=== PATIENT | female | born 1985 | race Caucasian/White ===

== ENCOUNTER → 2018-07-03 10:48 | Outpatient (CLI) | payer MEDICARE, MEDICAID, SELFPAY ==
--- NOTE | 2018-07-03 11:05 | DI.REPORT_ITS ---
SYMPTOM/DIAGNOSIS: NECK PAIN M54.2 CERVICAL SPINE: The disc spaces are well maintained. There is minimal spurring posteriorly at C5-6. The alignment appears normal. There is no neural foraminal narrowing. IMPRESSION: Minimal degenerative changes.
== END ==
PROVIDERS: PCP Family Medicine; Visit Provider Family Medicine
DX: M54.2 Cervicalgia (principal); M47.892 Other spondylosis, cervical region
CPT/HCPCS: 72050

== ENCOUNTER 2018-09-10 12:52 | Outpatient (CLI) | payer MEDICARE, MEDICAID, SELFPAY ==
--- NOTE | 2018-09-10 12:58 | DI.RAD_ITS ---
SYMPTOM/DIAGNOSIS: THORACIC BACK PAIN, M54.6, WORSENING RT HIP PAIN, M25.511 THORACIC SPINE: AP and lateral views. Comparison chest xray is 03/31/11. There is normal alignment of the thoracic spine. The vertebral bodies, disc spaces and posterior elements are all well maintained. The bones appear normally mineralized. The paraspinal lines are unremarkable. IMPRESSION: Negative examination. RIGHT HIP AND PELVIS: Two views. Comparison is made with 08/21/16. There are again seen post surgical changes of a left total hip replacement. The right hip is unremarkable. The bones are normally mineralized. The sacroiliac joints and symphysis pubis appear unremarkable. The soft tissues have a normal appearance. IMPRESSION: Normal right hip.
== END 2018-09-10 13:12 ==
PROVIDERS: PCP Family Medicine; Visit Provider Family Medicine
DX: M54.6 Pain in thoracic spine (principal); M25.551 Pain in right hip
CPT/HCPCS: 72072; 73502

== ENCOUNTER 2019-01-05 21:01 | Emergency (ER) | payer MEDICARE, MEDICAID, SELFPAY ==
[2019-01-05 21:08] VITALS: BP 131/82; PULSE 103; RESP 20; TEMP 37; O2SAT 100
[2019-01-05 21:18] VITALS: RESP 20
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
[2019-01-05] MEDS: Amoxicillin 500 MG CAP PO (22:01)
== END 2019-01-05 22:11 | disposition home or self-care (01) ==
PROVIDERS: Emergency Provider Emergency Medicine; PCP Family Medicine
DX: B37.0 Candidal stomatitis (principal); K04.7 Periapical abscess without sinus; J45.909 Unspecified asthma, uncomplicated; M25.551 Pain in right hip; M25.552 Pain in left hip; G89.29 Other chronic pain; F17.210 Nicotine dependence, cigarettes, uncomplicated
CPT/HCPCS: 81025; 99283; J3490

== ENCOUNTER 2019-06-08 15:04 | Emergency (ER) | payer MEDICARE, MEDICAID, SELFPAY ==
[2019-06-08 15:12] VITALS: BP 134/84; PULSE 108; RESP 18; TEMP 36.6; O2SAT 99
--- NOTE | 2019-06-08 15:24 | ED.GENADUL_ITS ---
Discharge Plan Disposition Patient Disposition: HOME Condition: Stable Discharge Details Chief Complaint: Allergic Clinical Impression: Sting, wasp Primary Care Provider: Pancho Patterson ED Provider: Hood Carson Home Meds and New Rx's Prescriptions: No Action aluminum chloride 20 % solution 1 applic TP DAILY PRNRF: 0 baclofen 10 mg tablet 10 mg PO QID RF: 0 albuterol sulfate [ProAir HFA] 90 mcg/actuation HFA aerosol inhaler 2 puff IH Q6H PRN (Reason: shortness of breath) Qty: 18 RF: 4 sertraline 25 mg tablet 25 mg PO DAILY Qty: 30 RF: 2 cyclobenzaprine 10 mg tablet 10 mg PO HS PRN (Reason: muscle spasm) Qty: 30 RF: 3 hydromorphone 2 mg tablet 2 mg PO Q6H MDD 8 mg PRN (Reason: pain) Qty: 120 RF: 0 methylphenidate HCl 20 mg tablet 20 mg PO BID MDD 40 mg Qty: 60 RF: 0 epinephrine [EpiPen] 0.3 MG/0.3 ML auto-injector 1 pen IM ONCE RF: 0 promethazine-codeine 5 ML syrup 1 - 2 tsp PO HS PRNQty: 6 RF: 0 amoxicillin 500 mg capsule 2,000 mg PO ONCE Qty: 4 RF: 0 divalproex [Depakote] 125 mg tablet,delayed release (DR/EC) 125 mg PO BID Qty: 180 RF: 4 ibuprofen 600 mg tablet 600 mg PO QID PRN (Reason: pain) Qty: 360 RF: 4 omeprazole 20 mg capsule,delayed release(DR/EC) 20 mg PO DAILY Qty: 90 RF: 2 clotrimazole 10 mg tiffany 10 mg Mucous Membrane 5X/DAY Qty: 40 RF: 0 Discharge Instructions Instructions: Insect Bite or Sting (ED) Additional Instructions: if you develop a rash that is itching take benadryl, follow dosing instructions on packaging. 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 Denies any rashes, gi or respiratory symptoms. There is no obvious puncture wound or redness where she states she was stung. She has no respiratory dsitress and is speaking in full sentences. Suspect she is not allergic to wasps. I recommended observation here but she declined as she has an epi pen at home. I advised if she develops symptoms of anaphylaxis to use her epi pen and return Differential Diagnosis bee sting, wasp sting HPI General Mode of arrival: ambulatory . Date/Time Provider Initiated Documentation: 06/08/19 15:06 . Limitations to Documentation: no limitations . Information obtained by: patient . History of Present Illness 33 year old F presents to the emergency department with the chief complaint of wasp sting, described as mild, and is localized to the face. Patient reports no radiation. Patient started experiencing this minute(s) (30) and it has been constant. No relieving factors improve symptom(s), No exacerbating factors reported . Patient did receive the following treatments prior to arrival, none Related Data Home Medications Medication Instructions Recorded Confirmed epinephrine [EpiPen] 1 pen IM ONCE 01/20/13 06/04/19 promethazine-codeine 1 - 2 tsp PO HS PRN #6 oz 05/11/18 06/04/19 aluminum chloride 20 % topical 1 applic TP DAILY PRN ml 07/25/18 06/04/19 solution baclofen 10 mg tablet 10 mg PO QID 07/25/18 06/04/19 albuterol sulfate 90 mcg/actuation 2 puff IH Q6H PRN #18 gm 07/26/18 06/04/19 aerosol inhaler sertraline 25 mg tablet 25 mg PO DAILY #30 tab 10/30/18 06/04/19 clotrimazole 10 mg MUCOUS MEMBRANE 5X/DAY #40 01/05/19 06/04/19 tab amoxicillin 500 mg capsule 2,000 mg PO ONCE #4 cap 01/29/19 06/04/19 divalproex 125 mg tablet,delayed 125 mg PO BID #180 tab 02/20/19 06/04/19 release ibuprofen 600 mg tablet 600 mg PO QID PRN #360 tab-cap 02/20/19 06/04/19 cyclobenzaprine 10 mg tablet 10 mg PO HS PRN #30 tab 03/12/19 06/04/19 omeprazole 20 mg capsule,delayed 20 mg PO DAILY #90 cap 05/24/19 06/04/19 release hydromorphone 2 mg tablet 2 mg PO Q6H PRN #120 tab MDD 8 mg 06/04/19 06/04/19 methylphenidate HCl 20 mg tablet 20 mg PO BID #60 tab-cap MDD 40 mg 06/04/19 06/04/19 Previous Rx's Medication Instructions Recorded albuterol sulfate 90 mcg/actuation 2 puff IH Q6H PRN #18 gm 07/26/18 aerosol inhaler sertraline 25 mg tablet 25 mg PO DAILY #30 tab 10/30/18 clotrimazole 10 mg MUCOUS MEMBRANE 5X/DAY #40 01/05/19 tab amoxicillin 500 mg capsule 2,000 mg PO ONCE #4 cap 01/29/19 divalproex 125 mg tablet,delayed 125 mg PO BID #180 tab 02/20/19 release ibuprofen 600 mg tablet 600 mg PO QID PRN #360 tab-cap 02/20/19 cyclobenzaprine 10 mg tablet 10 mg PO HS PRN #30 tab 03/12/19 omeprazole 20 mg capsule,delayed 20 mg PO DAILY #90 cap 05/24/19 release hydromorphone 2 mg tablet 2 mg PO Q6H PRN #120 tab MDD 8 mg 06/04/19 methylphenidate HCl 20 mg tablet 20 mg PO BID #60 tab-cap MDD 40 mg 06/04/19 Allergies Allergy/AdvReac Type Severity Reaction Status Date / Time venom-honey bee Allergy Severe HIVES Verified 06/08/19 15:14 aripiprazole [From Abilify] AdvReac Intermediate Nausea Verified 06/08/19 15:14 acetaminophen AdvReac Unknown VOMITING; Verified 06/08/19 15:14 WEIGHT LOSS meloxicam AdvReac Unknown NAUSEA/VOMI Verified 06/08/19 15:14 TING hydrocodone AdvReac NAUSEA/VOMI Verified 06/08/19 15:14 TING oxycodone AdvReac VOMITING Verified 06/08/19 15:14 General Stated Complaint: Allergic JONN: 3 Review of Systems Review of Systems All systems reviewed & are unremarkable except as noted in HPI and below Constitutional Denies chills and Denies fever(s) Cardiovascular Denies chest pain and Denies dyspnea Respiratory Denies cough and Denies dyspnea Gastrointestinal Denies abdominal pain, Denies nausea and Denies vomiting Musculoskeletal Denies joint swelling Integumentary/Breasts Denies rash [facility] Medical History (Updated 05/03/19 @ 09:55 by Noni Corbett) Anxiety disorder (Chronic 12/24/13) Attention deficit hyperactivity disorder (ADHD), combined type (Chronic 12/27/16) Chronic pain syndrome (Chronic 10/18/12) Explosive personality disorder (Chronic 08/06/15) Gastroesophageal reflux disease (Chronic) 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) Surgical History (Updated 04/30/19 @ 08:21 by Pancho Patterson MD) Arthroscopy (Inactive ~2007) History of total hip arthroplasty (Resolved) S/P carpal tunnel release (Resolved) Status post arthroscopy of hip (Resolved) Total replacement of hip (Resolved ~2006) Social History Smoking/Tobacco Use Status: Current every day Drug use: Never Household members: other Details: 2 Do you feel safe in your relationship?: Yes Exam Const General: no acute distress Orientation: alert HENMT Head: normal to inspection Ears: external ears normal General nose exam: external nose normal Mouth: moist mucous membranes Eyes General: appearance normal, both eyes and all related structures Neck Neck: normal visual inspection Resp Effort & Inspection: normal respiratory effort and able to speak in complete sentences Cardio Rate: regular rate Skin General skin exam: no rashes or lesions noted Neuro General: alert and oriented x3 Extrem General: normal to inspection Psych Mental Status: mental status grossly normal Course Vital Signs Temperature 36.6 C 06/08/19 15:12 Pulse 108 H 06/08/19 15:12 Respiratory Rate 18 06/08/19 15:12 Blood Pressure 134/84 06/08/19 15:12 Pulse Oximetry 99 06/08/19 15:12 Temperature 36.6 C 06/08/19 15:12 Temperature Source Temporal Artery Scan 06/08/19 15:12 Pulse 108 H 06/08/19 15:12 Respiratory Rate 18 06/08/19 15:12 Respiratory Effort 06/08/19 15:20 Respiratory Pattern Normal 06/08/19 15:20 Blood Pressure 134/84 06/08/19 15:12 Blood Pressure Position Sitting 06/08/19 15:12 Pulse Oximetry 99 06/08/19 15:12 Oxygen Delivery Method Room Air 06/08/19 15:12 Oxygen Flow Rate 0 06/08/19 15:12
[2019-06-08 15:25] VITALS: BP 108/72; PULSE 89; RESP 16; TEMP 36.6; O2SAT 97
== END 2019-06-08 15:25 | disposition home or self-care (01) ==
LOC: ER 15:25
PROVIDERS: Emergency Provider Emergency Medicine; PCP Family Medicine
DX: T63.461A Toxic effect of venom of wasps, accidental (unintentional), initial encounter (principal); Z91.038 Other insect allergy status
CPT/HCPCS: 99282

== ENCOUNTER 2020-01-28 11:32 | Outpatient (CLI) | payer MEDICARE, MEDICAID, SELFPAY ==
--- NOTE | 2020-01-28 14:15 | DI.RAD_ITS ---
EXAM: XR FINGER LT RING EXAM DATE/TIME: 01/28/2020 1412 CLINICAL HISTORY: LEFT RING FINGER UNSPECIFIED INJURY, S69.90XA. TECHNIQUE: 2D digital imaging was performed. COMPARISON: None. FINDINGS: BONES: No acute fracture is present. No bony destructive lesion is seen. JOINTS: No dislocation present. SOFT TISSUE: Normal. IMPRESSION: No evidence of acute fracture, dislocation, or subluxation. DATA REPOSITORY: RADIATION DOSE DELIVERED:
== END 2020-01-28 11:52 ==
PROVIDERS: PCP Family Medicine; Visit Provider Family Medicine
DX: S69.92XA Unspecified injury of left wrist, hand and finger(s), initial encounter (principal); M79.645 Pain in left finger(s)
CPT/HCPCS: 73140

== ENCOUNTER 2020-02-09 10:43 | Emergency (ER) | payer MEDICARE, MEDICAID, SELFPAY ==
[2020-02-09 11:11] VITALS: BP 151/92; PULSE 109; O2SAT 98
[2020-02-09 11:49] LABS: Bilirubin Negative (Negative); Blood Moderate (Negative); Clarity Clear (Clear); Glucose Negative (Negative); Ketones Negative (Negative); Leukocyte Esterase Negative (Negative); Nitrite Negative (Negative); Specific Gravity 1.015 (1.005-1.025); Urobilinogen 0.2 EU/dL (Up TO 0.2)
[2020-02-09 11:59] LABS: Bacteria Few HPF (Negative); C & S Indicated? No/Sq. Contamination; Casts Negative LPF (Negative); Crystals Negative HPF (Negative); Epithelial Cells Moderate HPF (Negative); Mucus Negative (Negative); Other Cells Few Renal (Negative)
[2020-02-09 12:00] LABS: Abs Immature Grans 0.01 k/cumm (0.0-0.09); Absolute Basophil Count 0.02 k/cumm (0.0-0.2); Absolute Monocyte Count 0.42 k/cumm (0.11-0.7); Absolute Neutrophil Count 3.06 k/cumm (1.2-6.7); Basophils % 0.4; HCT 37.1 % (36.0-46.0); HGB 12.7 g/dL (12.0-15.5); Immature Grans % 0.2 %; Lymphocytes % 29.4; Mean Corp. HGB Concentration 34.2 g/dL (32.0-36.0); Mean Corpuscular Hemoglobin 31.8 pg (27.0-33.0); Monocytes % 8.2; Neutrophils % 59.8; Platelet Count 347 x1000/uL (130-400); RBC 3.99 m/cumm (4.00-5.20); RBC Distribution Width 12.9 % (11.7-14.6); White Blood Cell Count 5.11 k/cumm (4.4-10.8)
[2020-02-09 12:13] VITALS: BP 137/51; PULSE 82; RESP 18; O2SAT 100
[2020-02-09 12:16] LABS: ALT 21 U/L (14-59); AST 14 U/L (15-37); Alkaline Phosphatase 60 U/L (46-116); BUN 8 mg/dL (7-18); Bilirubin, Total 0.4 mg/dL (0.2-1.0); CREATININE 0.76 mg/dL (0.55-1.02); Calcium 10.2 mg/dL (8.5-10.1); Chloride 108 mmol/L (98-107); Glucose 95 mg/dL (74-106); Lipase 136 U/L (73-393); Sodium 144 mmol/L (136-145); Total Protein 7.4 g/dL (6.4-8.2)
--- NOTE | 2020-02-09 12:50 | ED.GENADUL_ITS ---
Discharge Plan Disposition Patient Disposition: HOME Condition: Stable Discharge Details Chief Complaint: Abd Prob Clinical Impression: Abdominal pain Primary Care Provider: Pancho Patterson ED Provider: Fermín Mondragon Home Meds and New Rx's Prescriptions: No Action aluminum chloride 20 % solution 1 applic TP DAILY PRNRF: 0 albuterol sulfate [ProAir HFA] 90 mcg/actuation HFA aerosol inhaler 2 puff IH Q6H PRN (Reason: shortness of breath) Qty: 18 RF: 4 divalproex [Depakote] 125 mg tablet,delayed release (DR/EC) 250 mg PO DAILY Qty: 180 RF: 4 hydromorphone 2 mg tablet 2 mg PO Q6H MDD 8 mg PRN (Reason: pain) Qty: 120 RF: 0 methylphenidate HCl 20 mg tablet 20 mg PO BID MDD 40 mg Qty: 60 RF: 0 baclofen 10 mg tablet 10 mg PO QID Qty: 120 RF: 3 ondansetron 4 mg tablet,disintegrating 4 mg PO Q8H PRN (Reason: nausea and vomiting) Qty: 20 RF: 1 hydroxyzine HCl 25 mg tablet 25 mg PO TID PRN (Reason: itching) Qty: 60 RF: 3 triamcinolone acetonide 0.1 % cream 1 applic TP BID Qty: 30 RF: 3 epinephrine [EpiPen] 0.3 MG/0.3 ML auto-injector 1 pen IM ONCE RF: 0 promethazine-codeine 5 ML syrup 1 - 2 tsp PO HS PRNQty: 6 RF: 0 amoxicillin 500 mg capsule 2,000 mg PO ONCE Qty: 4 RF: 0 ibuprofen 600 mg tablet 600 mg PO QID PRN (Reason: pain) Qty: 360 RF: 4 omeprazole 20 mg capsule,delayed release(DR/EC) 20 mg PO DAILY Qty: 90 RF: 2 cyclobenzaprine 10 mg tablet 10 mg PO HS PRN (Reason: muscle spasm) Qty: 30 RF: 3 clotrimazole 10 mg tiffany 10 mg Mucous Membrane 5X/DAY Qty: 40 RF: 0 Discharge Instructions Instructions: Abdominal Pain (ED) Additional Instructions: At this time your routine laboratory values are unremarkable for obvious emergent process. CT imaging was offered but at this time declined. You would rather be discharged home, watch her symptoms carefully, and return to the ER for new or evolving symptoms. Otherwise I recommend contacting your primary care provider tomorrow for prompt outpatient reevaluation, outpatient imaging could be ordered if indicated. Discharge Data Discharge Date/Time-TO BE ENTERED AT DEPARTURE: 02/09/20 13:00 Medical Decision Making 34-year-old female presents to the ER today reporting epigastric discomfort that was present upon waking yesterday, now the pain is more so on the right side. She reports that she felt as though she got out of bed awkwardly in a twisting fashion causing the pain in the first place. She does have a positive Carnett sign. Denies fever, change of appetite, nausea, vomiting. She appears well, no ntoxic and has a nonsurgical abdominal examination. She is specifically asking about her appendix. Given her evaluation I have an extremely low suspicion for appendicitis. Will obtain routine laboratory values and reassess Laboratory values unremarkable. Upon reevaluation patient is resting comfortably. We discussed her laboratory values and further work-up. Again, she brought up the possibility of appendicitis. I explained to her that I did believe appendicitis was very unlikely but we discussed signs and symptoms to watch for. I explained to her that we could obtain a CT at this time for further evaluation however patient declines. She specifically asked me how long that would take. Based upon our current ER volume I suggested to CT may take an hour or so and by the time I had the results it may be roughly 2 hours. Patient reports that she does not want to wait that long and will return to the ER for new or evolving symptoms. Based upon her evaluation today I believe this to be perfectly reasonable. She was encouraged to contact her primary care provider tomorrow as well. Medical Records Medical records reviewed: Yes I reviewed the patient's medical records. Lab Data Lab results reviewed: Yes I reviewed the patient's lab results. Lab results narrative: Laboratory Tests Range/Units 02/09/20 02/09/20 02/09/20 11:27 11:50 11:50 WBC (4.4-10.8) k/cumm 5.11 RBC (4.00-5.20) m/cumm 3.99 L Hgb (12.0-15.5) g/dL 12.7 Hct (36.0-46.0) % 37.1 MCV (80-95) fL 93.0 MCH (27.0-33.0) pg 31.8 MCHC (32.0-36.0) g/dL 34.2 RDW (11.7-14.6) % 12.9 Plt Count (130-400) x1000/uL 347 MPV (8.0-11.0) fL 10.0 Immature Gran % % 0.2 Neutrophils % 59.8 Lymphocytes % 29.4 Monocytes % 8.2 Eosinophils % 2.0 Basophils % 0.4 Absolute Neutrophils (1.2-6.7) k/cumm 3.06 Absolute Lymphocytes (1.2-3.4) k/cumm 1.50 Absolute Monocytes (0.11-0.7) k/cumm 0.42 Absolute Eosinophils (0.0-0.7) k/cumm 0.10 Absolute Basophils (0.0-0.2) k/cumm 0.02 Sodium (136-145) mmol/L 144 Potassium (3.5-5.1) mmol/L 4.0 Chloride (98-107) mmol/L 108 H Carbon Dioxide (21.0-32.0) mmol/L 28.0 Anion Gap (3-11) mmol/L 8.0 BUN (7-18) mg/dL 8 Creatinine (0.55-1.02) mg/dL 0.76 Estimated GFR/1.73 m2 (mL/min/1.73m2) >= 60.00 Glucose (74-106) mg/dL 95 Calcium (8.5-10.1) mg/dL 10.2 H Total Bilirubin (0.2-1.0) mg/dL 0.4 AST (15-37) U/L 14 L ALT (14-59) U/L 21 Alkaline Phosphatase (46-116) U/L 60 Total Protein (6.4-8.2) g/dL 7.4 Albumin (3.4-5.0) g/dL 4.0 Lipase (73-393) U/L 136 Urine Color (Yellow) Yellow Urine Clarity (Clear) Clear Urine pH (5-8) 7.0 Ur Specific [place] (1.005-1.025) 1.015 Urine Protein (Negative) mg/dL Negative Urine Ketones (Negative) mg/dL Negative Urine Blood (Negative) Moderate H Urine Nitrite (Negative) Negative Urine Bilirubin (Negative) Negative Urine Urobilinogen (Up TO 0.2) EU/dL 0.2 Ur Leukocyte Esterase (Negative) Negative Urine RBC (0-2) HPF 3-5 H Urine WBC (0-5) HPF 3-5 Ur Epithelial Cells (Negative) HPF Moderate Urine Crystals (Negative) HPF Negative Urine Bacteria (Negative) HPF Few Urine Casts (Negative) LPF Negative Urine Mucus (Negative) Negative Urine Other (Negative) Few renal Ur Culture Indicated? No/sq. contamination Urine Glucose (Negative) mg/dL Negative HPI General Mode of arrival: ambulatory . Date/Time Provider Initiated Documentation: 02/09/20 11:34 . Limitations to Documentation: no limitations . Information obtained by: patient . HPI Narrative: This is a 34-year-old female with history of anxiety, ADHD, chronic pain syndrome, GERD, juvenile osteochondrosis, scoliosis, microcephalus, presents to the ER today with abdominal pain that began yesterday. She reports that initially she thought that she may have gotten out of bed awkwardly in a twisting fashion pulling a muscle but as the day went on she realized that the pain was in her epigastric region and today it is more on her right side. She reports that the pain is worse with movement or engaging her core. She denies recent illness or trauma. Denies fever, sore throat, cough, chest pain, shortness of breath, nausea, vomiting, diarrhea, constipation, dysuria or hematuria. She reports that she is just finishing up her current menstrual cycle. She denies any vaginal discharge. Denies change of appetite. She contacted her primary care provider who recommended being evaluated. Related Data Home Medications Medication Instructions Recorded Confirmed epinephrine [EpiPen] 1 pen IM ONCE 01/20/13 02/09/20 promethazine-codeine 1 - 2 tsp PO HS PRN #6 oz 05/11/18 02/09/20 aluminum chloride 20 % topical 1 applic TP DAILY PRN ml 07/25/18 02/09/20 solution albuterol sulfate 90 mcg/actuation 2 puff IH Q6H PRN #18 gm 07/26/18 02/09/20 aerosol inhaler clotrimazole 10 mg MUCOUS MEMBRANE 5X/DAY #40 01/05/19 02/09/20 tab amoxicillin 500 mg capsule 2,000 mg PO ONCE #4 cap 01/29/19 02/09/20 ibuprofen 600 mg tablet 600 mg PO QID PRN #360 tab-cap 02/20/19 02/09/20 omeprazole 20 mg capsule,delayed 20 mg PO DAILY #90 cap 05/24/19 02/09/20 release ondansetron 4 mg disintegrating 4 mg PO Q8H PRN #20 tab 10/03/19 02/09/20 tablet divalproex 125 mg tablet,delayed 250 mg PO DAILY #180 tab 11/01/19 02/09/20 release cyclobenzaprine 10 mg tablet 10 mg PO HS PRN #30 tab 11/28/19 02/09/20 hydroxyzine HCl 25 mg tablet 25 mg PO TID PRN #60 tab 01/03/20 02/09/20 triamcinolone acetonide 0.1 % 1 applic TP BID #30 gm 01/03/20 02/09/20 topical cream baclofen 10 mg tablet 10 mg PO QID #120 tab 01/31/20 02/09/20 hydromorphone 2 mg tablet 2 mg PO Q6H PRN #120 tab MDD 8 mg 01/31/20 02/09/20 methylphenidate HCl 20 mg tablet 20 mg PO BID #60 tab-cap MDD 40 mg 01/31/20 02/09/20 Previous Rx's Medication Instructions Recorded albuterol sulfate 90 mcg/actuation 2 puff IH Q6H PRN #18 gm 07/26/18 aerosol inhaler clotrimazole 10 mg MUCOUS MEMBRANE 5X/DAY #40 01/05/19 tab amoxicillin 500 mg capsule 2,000 mg PO ONCE #4 cap 01/29/19 ibuprofen 600 mg tablet 600 mg PO QID PRN #360 tab-cap 02/20/19 omeprazole 20 mg capsule,delayed 20 mg PO DAILY #90 cap 05/24/19 release ondansetron 4 mg disintegrating 4 mg PO Q8H PRN #20 tab 10/03/19 tablet divalproex 125 mg tablet,delayed 250 mg PO DAILY #180 tab 11/01/19 release cyclobenzaprine 10 mg tablet 10 mg PO HS PRN #30 tab 11/28/19 hydroxyzine HCl 25 mg tablet 25 mg PO TID PRN #60 tab 01/03/20 triamcinolone acetonide 0.1 % 1 applic TP BID #30 gm 01/03/20 topical cream baclofen 10 mg tablet 10 mg PO QID #120 tab 01/31/20 hydromorphone 2 mg tablet 2 mg PO Q6H PRN #120 tab MDD 8 mg 01/31/20 methylphenidate HCl 20 mg tablet 20 mg PO BID #60 tab-cap MDD 40 mg 01/31/20 Allergies Allergy/AdvReac Type Severity Reaction Status Date / Time venom-honey bee Allergy Severe HIVES Verified 02/09/20 11:16 aripiprazole [From [facility]] AdvReac Intermediate Nausea Verified 02/09/20 11:16 acetaminophen AdvReac Unknown VOMITING; Verified 02/09/20 11:16 WEIGHT LOSS meloxicam AdvReac Unknown NAUSEA/VOMI Verified 02/09/20 11:16 TING hydrocodone AdvReac NAUSEA/VOMI Verified 02/09/20 11:16 TING oxycodone AdvReac VOMITING Verified 02/09/20 11:16 General Stated Complaint: Abd Prob JONN: 3 Review of Systems Constitutional Constitutional: Denies fatigue, Denies fever(s), Denies headache(s) and Denies weakness Eyes Eyes: Denies eye discharge ENT Ears, Nose, Mouth, and Throat: Denies headache(s) and Denies sore throat Cardiovascular Cardiovascular: Denies chest pain and Denies dyspnea Respiratory Respiratory: Denies cough and Denies dyspnea Gastrointestinal Gastrointestinal: Reports abdominal pain, Denies diarrhea, Denies nausea and Denies vomiting Genitourinary Genitourinary: Denies hematuria, Denies dysuria and Denies vaginal discharge Musculoskeletal Musculoskeletal: Reports back pain (Chronic), Denies numbness and Denies tingling Integumentary/Breasts Skin/Breast: Denies rash Neurologic Neurologic: Denies headache(s), Denies numbness, Denies tingling and Denies weakness Endocrine Endocrine: Denies fatigue [facility] Medical History (Updated 02/09/20 @ 12:52 by RAMOS Moralez) Anxiety disorder (Chronic 12/24/13) Attention deficit hyperactivity disorder (ADHD), combined type (Chronic 12/27/16) Chronic pain syndrome (Chronic 10/18/12) Explosive personality disorder (Chronic Unknown) Gastroesophageal reflux disease (Chronic) 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) S/P left hip replacement Surgical History (Updated 04/30/19 @ 08:21 by Pancho Patterson MD) Arthroscopy (Inactive ~2007) right hip History of total hip arthroplasty (Resolved) S/P carpal tunnel release (Resolved) Status post arthroscopy of hip (Resolved) Total replacement of hip (Resolved ~2006) left Social History Smoking/Tobacco Use Status: Current every day Tobacco Type: e-cigarettes Alcohol Intake: never Drug use: Never Substance use type: does not use Household members: other Details: 2 Do you feel safe at home: Yes Do you feel safe in your relationship?: Yes Exam Const General: cooperative, healthy appearing, comfortable and no acute distress Orientation: alert and awake HENMT Head: normal to inspection, normocephalic and atraumatic Mouth: moist mucous membranes Throat: posterior oropharynx normal Eyes Conjunctivae: conjunctivae normal Neck Neck: normal visual inspection, trachea midline and supple Resp Effort & Inspection: normal respiratory effort and able to speak in complete sentences Auscultation: clear to auscultation bilaterally Cardio Rate: regular rate Rhythm: regular rhythm GI Inspection: normal to inspection and other (Positive Carnett sign) Palpation: soft, not firm, no guarding, not rigid and nontender Auscultation: normal bowel sounds Back/Spine/Pelvis Back: No back tenderness Skin General skin exam: no rashes or lesions noted Neuro General: patient alert, patient awake, moves all extremities and no focal motor deficits Sensory Exam: no sensory deficits noted Psych Appearance: grossly normal Mental Status: mental status grossly normal Course Vital Signs Vital signs: Vital Signs Pulse 109 H 02/09/20 11:11 Blood Pressure 151/92 H 02/09/20 11:11 Pulse Oximetry 98 02/09/20 11:11 Pulse 82 02/09/20 12:13 Respiratory Rate 18 02/09/20 12:13 Respiratory Effort Non-Labored 02/09/20 11:14 Blood Pressure 137/51 L 02/09/20 12:13 Blood Pressure Position Sitting 02/09/20 11:11 Pulse Oximetry 100 02/09/20 12:13 Oxygen Delivery Method Room Air 02/09/20 12:13 Oxygen Flow Rate 0 02/09/20 12:13 Pain Level 5 02/09/20 12:13 Lab/Test Results Lab/Test Results: Laboratory Tests Range/Units 03/02/09/20 02/09/20 11:27 11:50 11:50 WBC (4.4-10.8) k/cumm 5.11 RBC (4.00-5.20) m/cumm 3.99 L Hgb (12.0-15.5) g/dL 12.7 Hct (36.0-46.0) % 37.1 MCV (80-95) fL 93.0 MCH (27.0-33.0) pg 31.8 MCHC (32.0-36.0) g/dL 34.2 RDW (11.7-14.6) % 12.9 Plt Count (130-400) x1000/uL 347 MPV (8.0-11.0) fL 10.0 Immature Gran % % 0.2 Neutrophils % 59.8 Lymphocytes % 29.4 Monocytes % 8.2 Eosinophils % 2.0 Basophils % 0.4 Absolute Neutrophils (1.2-6.7) k/cumm 3.06 Absolute Lymphocytes (1.2-3.4) k/cumm 1.50 Absolute Monocytes (0.11-0.7) k/cumm 0.42 Absolute Eosinophils (0.0-0.7) k/cumm 0.10 Absolute Basophils (0.0-0.2) k/cumm 0.02 Sodium (136-145) mmol/L 144 Potassium (3.5-5.1) mmol/L 4.0 Chloride (98-107) mmol/L 108 H Carbon Dioxide (21.0-32.0) mmol/L 28.0 Anion Gap (3-11) mmol/L 8.0 BUN (7-18) mg/dL 8 Creatinine (0.55-1.02) mg/dL 0.76 Estimated GFR/1.73 m2 (mL/min/1.73m2) >= 60.00 Glucose (74-106) mg/dL 95 Calcium (8.5-10.1) mg/dL 10.2 H Total Bilirubin (0.2-1.0) mg/dL 0.4 AST (15-37) U/L 14 L ALT (14-59) U/L 21 Alkaline Phosphatase (46-116) U/L 60 Total Protein (6.4-8.2) g/dL 7.4 Albumin (3.4-5.0) g/dL 4.0 Lipase (73-393) U/L 136 Urine Color (Yellow) Yellow Urine Clarity (Clear) Clear Urine pH (5-8) 7.0 Ur Specific [place] (1.005-1.025) 1.015 Urine Protein (Negative) mg/dL Negative Urine Ketones (Negative) mg/dL Negative Urine Blood (Negative) Moderate H Urine Nitrite (Negative) Negative Urine Bilirubin (Negative) Negative Urine Urobilinogen (Up TO 0.2) EU/dL 0.2 Ur Leukocyte Esterase (Negative) Negative Urine RBC (0-2) HPF 3-5 H Urine WBC (0-5) HPF 3-5 Ur Epithelial Cells (Negative) HPF Moderate Urine Crystals (Negative) HPF Negative Urine Bacteria (Negative) HPF Few Urine Casts (Negative) LPF Negative Urine Mucus (Negative) Negative Urine Other (Negative) Few renal Ur Culture Indicated? No/sq. contamination Urine Glucose (Negative) mg/dL Negative POC- Test(urine) Negative
[2020-02-09 12:58] VITALS: BP 137/51; PULSE 82; RESP 18; O2SAT 100
== END 2020-02-09 13:00 | disposition home or self-care (01) ==
PROVIDERS: Emergency Provider Physician Assistant; PCP Family Medicine
DX: R10.13 Epigastric pain (principal)
CPT/HCPCS: 36415; 80053; 81025; 83690; 99283; 81003; 81015; 85025; 99284

== ENCOUNTER 2020-03-26 00:59 | Outpatient (CLI) | payer MEDICARE, MEDICAID, SELFPAY ==
--- NOTE | 2020-03-26 07:00 | DI.RAD_ITS ---
EXAM: XR HAND RT COMPLETE CLINICAL HISTORY: Injury and swelling right hand,S69.91XA TECHNIQUE: COMPARISON: CR XR FINGER LT RING from 01/28/2020 FINDINGS: Three views were obtained. No fracture is seen. IMPRESSION:
== END 2020-03-26 01:19 ==
PROVIDERS: PCP Family Medicine; Visit Provider Family Medicine
DX: M79.641 Pain in right hand (principal); S69.91XA Unspecified injury of right wrist, hand and finger(s), initial encounter; M79.89 Other specified soft tissue disorders
CPT/HCPCS: 73130

== ENCOUNTER 2021-04-30 15:44 | Emergency (ER) | payer MEDICARE, MEDICAID, SELFPAY | END 2021-04-30 16:55 | LOC: ER 18:10 | PROVIDERS: PCP Nurse Practitioner Family | DX: Z53.29 Procedure and treatment not carried out because of patient's decision for other reasons (principal) ==

== ENCOUNTER 2021-07-06 08:26 | Emergency (ER) | payer MEDICARE, MEDICAID, SELFPAY ==
[2021-07-06 08:50] VITALS: BP 114/66; PULSE 99; RESP 16; O2SAT 100
--- NOTE | 2021-07-06 08:56 | ED.GENADUL_ITS ---
Discharge Plan Disposition Patient Disposition: HOME Condition: Improving Discharge Details Clinical Impression: Laceration of left upper extremity Primary Care Provider: Harley Miller ED Provider: Jonathon Valera Home Meds and New Rx's Prescriptions: New cephalexin 500 mg tablet 500 mg PO TID 5 Days Qty: 15 RF: 0 Continued aluminum chloride 20 % solution 1 applic TP DAILY PRNRF: 0 propranolol 10 mg tablet 10 mg PO BID Qty: 90 RF: 5 fluconazole [Diflucan] 40 mg/mL suspension for reconstitution 50 mg PO BID Qty: 35 RF: 0 hydroxyzine HCl 25 mg tablet 25 mg PO TID PRN (Reason: itching) Qty: 60 RF: 3 triamcinolone acetonide 0.1 % cream 1 applic TP BID Qty: 30 RF: 3 ondansetron 4 mg tablet,disintegrating 4 mg PO Q8H PRN (Reason: nausea and vomiting) Qty: 30 RF: 4 albuterol sulfate [ProAir HFA] 90 mcg/actuation HFA aerosol inhaler 2 puff IH Q6H PRN (Reason: shortness of breath) Qty: 18 RF: 4 ibuprofen 600 mg tablet 600 mg PO QID PRN (Reason: pain) Qty: 360 RF: 4 epinephrine [EpiPen] 0.3 MG/0.3 ML auto-injector 1 pen IM ONCE RF: 0 promethazine-codeine 5 ML syrup 1 - 2 tsp PO HS PRNQty: 6 RF: 0 cyclobenzaprine 10 mg tablet 10 mg PO HS PRN (Reason: muscle spasm) Qty: 30 RF: 3 (DME) Soft Cervical Collar small Qty: 1 RF: 0 omeprazole 20 mg capsule,delayed release(DR/EC) 20 mg PO DAILY Qty: 90 RF: 4 amoxicillin 500 mg capsule 2,000 mg PO ONCE Qty: 4 RF: 0 divalproex [Depakote] 125 mg tablet,delayed release (DR/EC) 250 mg PO DAILY Qty: 180 RF: 4 baclofen 10 mg tablet 10 mg PO QID Qty: 120 RF: 3 hydromorphone 2 mg tablet 2 mg PO Q6H MDD 8 mg PRN (Reason: pain) Qty: 120 RF: 0 methylphenidate HCl 20 mg tablet 20 mg PO BID MDD 40 mg Qty: 60 RF: 0 Discharge Instructions Instructions: Laceration (ED) Additional Instructions: Leave the Steri-Strips intact and in place for approximately 5 to 10 days, they will likely begin to curl and need to be removed around day 7. Take antibiotics as prescribed. Return to the emergency department for any acute concerns. Avoid swimming in ponds or streams until healed. Medical Decision Making 35-year-old female presents with laceration to her left AC fossa from a scratch of the dog's path. Tetanus is up-to-date. She has a superficial laceration, no underlying exposed tissue. No motor, sensory injury. Discussed with her options for repair, anesthetized with let, liberally irrigated, closed with Steri-Strips. Will place her empirically on 5 days of Keflex. She is stable and appropriate for discharge to home. HPI General Mode of arrival: ambulatory . Date/Time Provider Initiated Documentation: 07/06/21 08:31 . Limitations to Documentation: no limitations . Information obtained by: patient . History of Present Illness 35 year old F presents to the emergency department with the chief complaint of Scratch by dog and left arm laceration, described as mild, Quality is described as dull and constant, and is localized to the left and upper extremity. Patient reports no radiation. Patient started experiencing this minute(s) and it has been constant. No relieving factors improve symptom(s), No exacerbating factors reported . Patient did receive the following treatments prior to arrival, none and other (Tetanus up-to-date, otherwise she has been well.) Related Data Home Medications Medication Instructions Recorded Confirmed epinephrine [EpiPen] 1 pen IM ONCE 01/20/13 04/01/21 promethazine-codeine 1 - 2 tsp PO HS PRN #6 oz 05/11/18 04/01/21 aluminum chloride 20 % topical 1 applic TP DAILY PRN ml 07/25/18 04/01/21 solution hydroxyzine HCl 25 mg tablet 25 mg PO TID PRN #60 tab 01/03/20 04/01/21 triamcinolone acetonide 0.1 % 1 applic TP BID #30 gm 01/03/20 04/01/21 topical cream cyclobenzaprine 10 mg tablet 10 mg PO HS PRN #30 tab 02/27/20 04/01/21 albuterol sulfate 90 mcg/actuation 2 puff IH Q6H PRN #18 gm 04/23/20 04/01/21 aerosol inhaler ondansetron 4 mg disintegrating 4 mg PO Q8H PRN #30 tab 04/23/20 04/01/21 tablet Soft Cervical Collar #1 ea 05/22/20 04/01/21 propranolol 10 mg tablet 10 mg PO BID #90 tab 12/23/20 04/01/21 fluconazole 40 mg/mL oral 50 mg PO BID #35 ml 01/20/21 04/01/21 suspension omeprazole 20 mg capsule,delayed 20 mg PO DAILY #90 cap 02/03/21 04/01/21 release ibuprofen 600 mg tablet 600 mg PO QID PRN #360 tab-cap 02/19/21 04/01/21 amoxicillin 500 mg capsule 2,000 mg PO ONCE #4 cap 03/05/21 04/01/21 divalproex 125 mg tablet,delayed 250 mg PO DAILY #180 tab 03/12/21 04/01/21 release baclofen 10 mg tablet 10 mg PO QID #120 tab 04/20/21 hydromorphone 2 mg tablet 2 mg PO Q6H PRN #120 tab MDD 8 mg 06/17/21 methylphenidate HCl 20 mg tablet 20 mg PO BID #60 tab-cap MDD 40 mg 06/30/21 cephalexin 500 mg PO TID 5 Days #15 tab 07/06/21 Previous Rx's Medication Instructions Recorded hydroxyzine HCl 25 mg tablet 25 mg PO TID PRN #60 tab 01/03/20 triamcinolone acetonide 0.1 % 1 applic TP BID #30 gm 01/03/20 topical cream cyclobenzaprine 10 mg tablet 10 mg PO HS PRN #30 tab 02/27/20 albuterol sulfate 90 mcg/actuation 2 puff IH Q6H PRN #18 gm 04/23/20 aerosol inhaler ondansetron 4 mg disintegrating 4 mg PO Q8H PRN #30 tab 04/23/20 tablet Soft Cervical Collar #1 ea 05/22/20 propranolol 10 mg tablet 10 mg PO BID #90 tab 12/23/20 fluconazole 40 mg/mL oral 50 mg PO BID #35 ml 01/20/21 suspension omeprazole 20 mg capsule,delayed 20 mg PO DAILY #90 cap 02/03/21 release ibuprofen 600 mg tablet 600 mg PO QID PRN #360 tab-cap 02/19/21 amoxicillin 500 mg capsule 2,000 mg PO ONCE #4 cap 03/05/21 divalproex 125 mg tablet,delayed 250 mg PO DAILY #180 tab 03/12/21 release baclofen 10 mg tablet 10 mg PO QID #120 tab 04/20/21 hydromorphone 2 mg tablet 2 mg PO Q6H PRN #120 tab MDD 8 mg 06/17/21 methylphenidate HCl 20 mg tablet 20 mg PO BID #60 tab-cap MDD 40 mg 06/30/21 cephalexin 500 mg PO TID 5 Days #15 tab 07/06/21 Allergies Allergy/AdvReac Type Severity Reaction Status Date / Time venom-honey bee Allergy Severe HIVES Verified 07/06/21 08:56 aripiprazole [From [facility]] AdvReac Intermediate Nausea Verified 07/06/21 08:56 acetaminophen AdvReac Unknown VOMITING; Verified 07/06/21 08:56 WEIGHT LOSS meloxicam AdvReac Unknown NAUSEA/VOMI Verified 07/06/21 08:56 TING hydrocodone AdvReac NAUSEA/VOMI Verified 07/06/21 08:56 TING oxycodone AdvReac VOMITING Verified 07/06/21 08:56 General Stated Complaint: Laceration JONN: 4 Review of Systems Narrative: No other injury. 5 systems reviewed and otherwise negative [facility] Medical History Anxiety disorder (12/24/13) Attention deficit hyperactivity disorder (ADHD), combined type (12/27/16) Chronic pain syndrome (10/18/12) Explosive personality disorder (Unknown) Gastroesophageal reflux disease Juvenile osteochondrosis of hip and pelvis S/P left hip replacement Surgical History (Updated 04/30/19 @ 08:21 by Pancho Patterson MD) Arthroscopy (~2007) right hip History of total hip arthroplasty S/P carpal tunnel release Status post arthroscopy of hip Total replacement of hip (~2006) left Social History Smoking/Tobacco Use Status: Current every day Tobacco Type: e-cigarettes Smoking risk assessment performed?: Yes Alcohol Intake: never Drug use: Never Substance use type: does not use Household members: other Details: 2 Do you feel safe at home: Yes Do you feel safe in your relationship?: Yes Exam Narrative Exam Narrative: GEN: awake, alert, oriented 3. Pleasant, well groomed, interactive. HEAD: Normocephalic, atraumatic EXT: Full ROM, no edema, left AC with superficial laceration measuring approximately 4 cm that just penetrates through the dermis. Normal sensation, no exposed tissue underneath, no foreign body. Distal pulse, motor, sensation normal. Neuro: Grossly normal neurologic exam, conversant, interactive. Psych: Speech fluent, thoughts congruent, affect normal Course Vital Signs Vital signs: Vital Signs Pulse 99 H 07/06/21 08:50 Respiratory Rate 16 07/06/21 08:50 Blood Pressure 114/66 07/06/21 08:50 Pulse Oximetry 100 07/06/21 08:50 Pulse 99 H 07/06/21 08:50 Respiratory Rate 16 07/06/21 08:50 Blood Pressure 114/66 07/06/21 08:50 Blood Pressure Position Supine 07/06/21 08:50 Pulse Oximetry 100 07/06/21 08:50 Oxygen Delivery Method Room Air 07/06/21 08:50 Oxygen Flow Rate 0 07/06/21 08:50 Pain Level 5 07/06/21 08:50
[2021-07-06] MEDS: Lidocaine/Epinephri/Tetracaine Topical Gel 3 ML TP (08:57)
== END 2021-07-06 09:23 | disposition home or self-care (01) ==
PROVIDERS: Emergency Provider Emergency Medicine; PCP Nurse Practitioner Family
DX: S51.812A Laceration without foreign body of left forearm, initial encounter (principal); W54.1XXA Struck by dog, initial encounter
CPT/HCPCS: 99283

== ENCOUNTER 2021-07-27 01:47 | Outpatient (CLI) | payer MEDICARE, MEDICAID, SELFPAY ==
--- NOTE | 2021-07-27 08:30 | DI.RAD_ITS ---
Exam(s) XR CERVICAL SPINE COMP 4-5V EXAM: XR CERVICAL SPINE COMP 4-5V CLINICAL HISTORY: NECK PAIN, M54.2. TECHNIQUE: 2D digital imaging was performed. COMPARISON: No exams were available for comparison FINDINGS: BONES: No fracture or destructive lesion. Vertebral bodies are unremarkable. DISKS: There is mild narrowing of the C5-6 disc space and small endplate osteophytes. There is mild right neural foraminal encroachment at this level. The remaining intervertebral disc spaces are main tained. There are mild facet joint degenerative changes greatest at C6-7 and C7-T1. ALIGNMENT: Cervical spinal alignment is within normal limits. The odontoid and atlantoaxial articulat ions are normal. SOFT TISSUE: Normal. The lung apices are clear. IMPRESSION: Degenerative disc changes at C5-6 causes mild right neural foraminal narrowing. DATA REPOSITORY: RADIATION DOSE DELIVERED:
== END 2021-07-27 02:07 ==
PROVIDERS: PCP Nurse Practitioner Family; Visit Provider Nurse Practitioner Family
DX: M50.322 Other cervical disc degeneration at C5-C6 level (principal); M48.02 Spinal stenosis, cervical region
CPT/HCPCS: 72050

== ENCOUNTER 2021-12-07 04:15 | Outpatient (CLI) | payer MEDICARE, MEDICAID, SELFPAY ==
[2021-12-07 14:13] LABS: ALT 21 U/L (14-59); AST 11 U/L (15-37); Albumin 3.8 g/dL (3.4-5.0); Alkaline Phosphatase 49 U/L (46-116); Anion Gap 11.1 mmol/L (3-11); BUN 9 mg/dL (7-18); Bilirubin, Total 0.4 mg/dL (0.2-1.0); CO2 23.9 mmol/L (21.0-32.0); CREATININE 0.6 mg/dL (0.55-1.02); Calcium 9.3 mg/dL (8.5-10.1); Calculated LDL 87 mg/dL (<100); Chloride 98 mmol/L (98-107); Cholesterol 159 mg/dL (<200); Glucose 83 mg/dL (74-106); HDL Cholesterol 58 mg/dL (40-60); Potassium 3.6 mmol/L (3.5-5.1); Sodium 133 mmol/L (136-145); Triglyceride 70 mg/dL (<150)
== END 2021-12-07 04:16 | disposition home or self-care (01) ==
LOC: LBO 04:15
PROVIDERS: PCP Nurse Practitioner Family; Visit Provider Nurse Practitioner Family
DX: F90.2 Attention-deficit hyperactivity disorder, combined type (principal); R00.0 Tachycardia, unspecified; Z13.220 Encounter for screening for lipoid disorders
CPT/HCPCS: 36415; 80053; 80061; 83036

== ENCOUNTER 2022-02-22 03:23 | Outpatient (CLI) | payer MEDICARE, MEDICAID, SELFPAY ==
[2022-02-22 12:51] LABS: Abs Immature Grans 0.04 10^3/uL (0.0-0.06); Absolute Basophil Count 0.05 10^3/uL (0.0-0.2); Absolute Eosinophil Count 0.08 10^3/uL (0.0-0.7); Absolute Monocyte Count 0.79 10^3/uL (0.1-0.8); Basophils % 0.5; Eosinophils % 0.7; HCT 32.6 % (36.0-46.0); HGB 10.8 g/dL (11.2-15.7); Immature Grans % 0.4; Lymphocytes % 14.7; MCH 31.5 pg (27.0-33.0); MCHC 33.1 % (32.0-36.0); MPV 10.3 fL (8.0-11.0); Monocytes % 7.3; Neutrophils % 76.4; Nucleated RBC 0 %; Platelet Count 305 10^3/uL (130-400); RBC 3.43 10^6/uL (3.93-5.22); RDW 12.7 % (11.7-14.6); RDW-SD 43.9 fL; WBC 10.89 10^3/uL (4.4-10.8)
[2022-02-22 12:56] LABS: Absolute Neutrophil Count 8.32 10^3/uL (1.2-6.7)
[2022-02-22 13:39] LABS: TSH (W/Ref FT4) 0.42 uIU/mL (0.36-3.74)
[2022-02-23 09:36] LABS: Hepatitis B Surface Ag Negative (Negative)
[2022-02-23 10:13] LABS: HIV-1/2 Ag & Ab Screen Negative (Negative)
[2022-02-23 10:34] LABS: Hepatitis C Ab w Rflx HCV PCR Negative (Negative)
[2022-02-23 11:30] LABS: Rubella IgG Ab (UVM) Positive (See Note); Varicella IgG Antibody Positive (See Note)
[2022-02-23 21:50] LABS: Syphilis IgG w/Reflex Nonreactive (Nonreactive)
[2022-02-25 23:04] LABS: Result Summary NEGATIVE; Specimen WB Whole Blood
== END 2022-02-22 03:24 | disposition home or self-care (01) ==
LOC: LBO 03:23
PROVIDERS: PCP Nurse Practitioner Family; Visit Provider Advanced Practice Midwife
DX: O99.342 Other mental disorders complicating pregnancy, second trimester (principal); F32.1 Major depressive disorder, single episode, moderate; Z3A.19 19 weeks gestation of pregnancy
CPT/HCPCS: 36415; 86787; 86803; 86850; 86900; 86901; 87340; 87389; 81220; 84443; 85025; 86762; 86780

== ENCOUNTER 2022-03-15 19:37 | Outpatient (REF) | payer MEDICARE, MEDICAID, SELFPAY ==
[2022-03-18 16:40] LABS: Chlamydia Result Negative (Negative); GC Result Negative (Negative)
== END 2022-03-15 19:38 | disposition home or self-care (01) ==
LOC: LBN 19:37
PROVIDERS: PCP Nurse Practitioner Family; Visit Provider Obstetrics & Gynecology
DX: Z34.92 Encounter for supervision of normal pregnancy, unspecified, second trimester (principal); Z3A.22 22 weeks gestation of pregnancy
CPT/HCPCS: 87491; 87591; 87086

== ENCOUNTER 2022-04-22 01:35 | Outpatient (CLI) | payer MEDICARE, MEDICAID, SELFPAY ==
[2022-04-22 12:21] LABS: Abs Immature Grans 0.05 10^3/uL (0.0-0.06); Absolute Basophil Count 0.05 10^3/uL (0.0-0.2); Absolute Eosinophil Count 0.06 10^3/uL (0.0-0.7); Absolute Lymphocyte Count 1.45 10^3/uL (1.2-3.4); Absolute Monocyte Count 0.84 10^3/uL (0.1-0.8); Basophils % 0.4; Eosinophils % 0.5; HCT 32.2 % (36.0-46.0); Immature Grans % 0.4; Lymphocytes % 11.9; MCH 31.7 pg (27.0-33.0); MCHC 34.2 % (32.0-36.0); MCV 93 fL (80-95); MPV 9.4 fL (8.0-11.0); Monocytes % 6.9; Neutrophils % 79.9; Platelet Count 311 10^3/uL (130-400); RBC 3.47 10^6/uL (3.93-5.22); RDW 13.4 % (11.7-14.6); RDW-SD 45.1 fL; WBC 12.16 10^3/uL (4.4-10.8)
[2022-04-22 12:22] LABS: Absolute Neutrophil Count 9.72 10^3/uL (1.2-6.7)
[2022-04-22 13:27] LABS: Glucose,1 Hr (Glucola) 131 mg/dL (80-140)
== END 2022-04-22 01:36 | disposition home or self-care (01) ==
LOC: LBO 01:35
PROVIDERS: Obstetrics & Gynecology; PCP Nurse Practitioner Family; Visit Provider Obstetrics & Gynecology Gynecology
DX: Z34.92 Encounter for supervision of normal pregnancy, unspecified, second trimester (principal); Z3A.27 27 weeks gestation of pregnancy
CPT/HCPCS: 36415; 82950; 85025

== ENCOUNTER 2022-05-10 14:16 | Outpatient (CLI) | payer MEDICARE, MEDICAID, SELFPAY ==
[2022-05-10 14:30] LABS: HCT 33.5 % (36.0-46.0); HGB 11.5 g/dL (11.2-15.7); MCH 31.7 pg (27.0-33.0); MCHC 34.3 % (32.0-36.0); MCV 92 fL (80-95); MPV 9.5 fL (8.0-11.0); Platelet Count 302 10^3/uL (130-400); RBC 3.63 10^6/uL (3.93-5.22); RDW 13.3 % (11.7-14.6); RDW-SD 44.7 fL; WBC 13.75 10^3/uL (4.4-10.8)
[2022-05-10 14:44] LABS: ALT 25 U/L (14-59); AST 19 U/L (15-37); Albumin 2.7 g/dL (3.4-5.0); Alkaline Phosphatase 85 U/L (46-116); BUN 7 mg/dL (7-18); Bilirubin, Total 0.4 mg/dL (0.2-1.0); CREATININE 0.5 mg/dL (0.55-1.02); Calcium 8.8 mg/dL (8.5-10.1); Chloride 105 mmol/L (98-107); Glucose 81 mg/dL (74-106); Potassium 3.6 mmol/L (3.5-5.1); Sodium 137 mmol/L (136-145); Total Protein 6.6 g/dL (6.4-8.2)
[2022-05-10 18:07] LABS: COMMENT (LAB VIEW ONLY) 50.76 mg/dL; PROTEIN 11.9 mg/dL; Prot/Crea Ur Ratio 0.23
== END 2022-05-10 14:17 | disposition home or self-care (01) ==
PROVIDERS: PCP Nurse Practitioner Family; Visit Provider Obstetrics & Gynecology
DX: O99.891 Other specified diseases and conditions complicating pregnancy (principal); R60.0 Localized edema; O16.3 Unspecified maternal hypertension, third trimester; Z3A.30 30 weeks gestation of pregnancy
CPT/HCPCS: 36415; 80053; 85027; 82565; 84156

== ENCOUNTER 2022-05-10 18:17 | Outpatient (REF) | payer MEDICARE, MEDICAID, SELFPAY | END 2022-05-10 18:18 | disposition home or self-care (01) | LOC: LBN 18:17 | PROVIDERS: PCP Nurse Practitioner Family; Visit Provider Obstetrics & Gynecology ==

== ENCOUNTER 2022-05-17 03:16 | Emergency (ER) | payer MEDICARE, MEDICAID, SELFPAY ==
[2022-05-17 03:23] VITALS: BP 144/83; PULSE 110; RESP 24; TEMP 36.4; O2SAT 99
--- NOTE | 2022-05-17 03:40 | ED.GENADUL_ITS ---
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 Clinical Impression: Abdominal pain during in third trimester Primary Care Provider: Harley Miller ED Provider: Randy Tay Home Meds and New Rx's Prescriptions: No Action aluminum chloride 20 % solution 1 applic TP DAILY PRN folic acid 400 mcg tablet 0.4 mg PO DAILY Qty: 90 0RF pseudoephedrine HCl 120 mg tablet extended release 120 mg PO Q12H PRN (Reason: nasal congestion) Qty: 14 0RF triamcinolone acetonide 0.1 % cream 1 applic TP BID Qty: 30 3RF ondansetron 4 mg tablet,disintegrating 4 mg PO Q8H PRN (Reason: nausea and vomiting) Qty: 30 4RF albuterol sulfate [ProAir HFA] 90 mcg/actuation HFA aerosol inhaler 2 puff IH Q6H PRN (Reason: shortness of breath) Qty: 18 4RF polyethylene glycol 3350 [Miralax] 17 gram/dose powder 17 g PO DAILY Qty: 119 2RF epinephrine [EpiPen] 0.3 MG/0.3 ML auto-injector 1 pen IM ONCE Label Comments: (DME) Soft Cervical Collar small Qty: 1 0RF Rx Instructions: As directed propranolol 10 mg tablet 10 mg PO BID omeprazole 20 mg capsule,delayed release(DR/EC) 20 mg PO BID PRN (Reason: gerd) Qty: 60 2RF divalproex [Depakote] 125 mg tablet,delayed release (DR/EC) 125 mg PO DAILY Qty: 90 3RF PrePlus 27 mg iron- 1 mg tablet 1 tab PO DAILY Qty: 90 3RF Rx Instructions: give with food (meal/snack) propranolol 10 mg tablet 10 mg PO BID Qty: 60 3RF methylphenidate HCl 20 mg tablet 20 mg PO BID MDD 40mg Qty: 56 0RF hydromorphone 2 mg tablet 2 mg PO Q6H MDD 8 mg PRN (Reason: pain) Qty: 112 0RF Medical Decision Making 36-year-old at 31 weeks here with severe sharp left lower abdominal pain that woke her up this morning around 230. Patient experiencing sharp contraction every 3min that last approximately 1-2min. Patient is tachycardic and normotensive. Patient denies vaginal bleeding but does note that she woke up with fluid on her buttocks that she thought was sweat - consider amniotic fluid. Bedside POCUS transabdominal pelvic limited performed by me: IUP with movement and cardiac activity, low amniotic fluid. Stat consulted to OB - I spoke with obstetician operations engineer Dr. Koch, discussed ED presentation and she recommends transfer to L&D for further evaluation. IV established and labs sent. Care transitioned to Dr. Pool at 3:48a. Labs pending at time of transfer. HPI General Mode of arrival: ambulatory . Date/Time Provider Initiated Documentation: 05/17/22 03:20 . Limitations to Documentation: no limitations . Information obtained by: patient and family . HPI Narrative: 36-year-old female G1, P0 at 31 weeks here with severe left lower abdominal pain that started around 230 this morning. Pain seems to come in intermittent waves and is described as stabbing. No modifiers. She has had no associated vaginal bleeding. She does note that when she woke up she had some fluid around her buttocks that she thought was sweat. She does note associated vomiting. Patient notes that she is being followed at [facility] with concerns for cardiac and urinary findings on ultrasound. Related Data Home Medications Medication Instructions Recorded Confirmed epinephrine 0.3 mg/0.3 mL 1 pen IM ONCE 01/20/13 05/17/22 injection, auto-injector (EpiPen) aluminum chloride 20 % topical 1 applic topical DAILY PRN 07/25/18 05/11/22 solution triamcinolone acetonide 0.1 % 1 applic topical BID #30 grams 01/03/20 05/11/22 topical cream albuterol sulfate 90 mcg/actuation 2 puff inhalation Q6H PRN 04/23/20 05/17/22 aerosol inhaler (ProAir HFA) shortness of breath #18 grams ondansetron 4 mg disintegrating 4 mg PO Q8H PRN nausea and 04/23/20 05/17/22 tablet vomiting #30 tabs Soft Cervical Collar #1 ea 05/22/20 05/11/22 folic acid 400 mcg tablet 0.4 mg PO DAILY #90 tabs 11/25/21 05/17/22 pseudoephedrine HCl 120 mg 120 mg PO Q12H PRN nasal 12/06/21 05/11/22 tablet,extended release congestion #14 tabs polyethylene glycol 3350 17 17 g PO DAILY #119 grams 12/23/21 05/17/22 gram/dose oral powder (Miralax) omeprazole 20 mg capsule,delayed 20 mg PO BID PRN gerd #60 caps 12/27/21 05/17/22 release propranolol 10 mg tablet 10 mg PO BID 12/27/21 05/17/22 divalproex 125 mg tablet,delayed 125 mg PO DAILY #90 tabs 12/28/21 05/17/22 release (Depakote) vitamin with calcium 1 tab PO DAILY #90 tabs 02/22/22 05/17/22 no.72-iron 27 mg-folic acid 1 mg tablet (PrePlus) propranolol 10 mg tablet 10 mg PO BID #60 tabs 04/22/22 05/17/22 methylphenidate HCl 20 mg tablet 20 mg PO BID #56 tabs 05/04/22 05/17/22 hydromorphone 2 mg tablet 2 mg PO Q6H PRN pain #112 tabs 05/12/22 05/17/22 Previous Rx's Medication Instructions Recorded triamcinolone acetonide 0.1 % 1 applic topical BID #30 grams 01/03/20 topical cream albuterol sulfate 90 mcg/actuation 2 puff inhalation Q6H PRN 04/23/20 aerosol inhaler (ProAir HFA) shortness of breath #18 grams ondansetron 4 mg disintegrating 4 mg PO Q8H PRN nausea and 04/23/20 tablet vomiting #30 tabs Soft Cervical Collar #1 ea 05/22/20 folic acid 400 mcg tablet 0.4 mg PO DAILY #90 tabs 11/25/21 pseudoephedrine HCl 120 mg 120 mg PO Q12H PRN nasal 12/06/21 tablet,extended release congestion #14 tabs polyethylene glycol 3350 17 17 g PO DAILY #119 grams 12/23/21 gram/dose oral powder (Miralax) omeprazole 20 mg capsule,delayed 20 mg PO BID PRN gerd #60 caps 12/27/21 release divalproex 125 mg tablet,delayed 125 mg PO DAILY #90 tabs 12/28/21 release (Depakote) vitamin with calcium 1 tab PO DAILY #90 tabs 02/22/22 no.72-iron 27 mg-folic acid 1 mg tablet (PrePlus) propranolol 10 mg tablet 10 mg PO BID #60 tabs 04/22/22 methylphenidate HCl 20 mg tablet 20 mg PO BID #56 tabs 05/04/22 hydromorphone 2 mg tablet 2 mg PO Q6H PRN pain #112 tabs 05/12/22 Allergies Allergy/AdvReac Type Severity Reaction Status Date / Time venom-honey bee Allergy Severe HIVES Verified 05/17/22 03:27 aripiprazole [From 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 JONN: 3 Review of Systems All systems reviewed & are unremarkable except as noted in HPI and below Gastrointestinal Gastrointestinal: Reports vomiting Genitourinary Genitourinary: Reports as per HPI PFSH All Active Problems (Updated 05/17/22 @ 03:54 by Randy Tay MD) Abdominal pain during in third trimester (Acute) Elevated blood pressure affecting in third trimester, antepartum (Acute) Medication management (Acute) Medication exposure during first trimester of (Acute) (Acute) Positive test (Acute) Skin sore (Acute) Laceration of left upper extremity (Acute) Neck pain (Acute) Stomach disorder (Acute) Rib pain (Acute) Oral candidiasis (Acute) Sinus tachycardia (Acute) takes propanalol 10 mg twice daily Anxiety disorder (Acute) Peripheral neuropathy (Acute) Explosive personality disorder (Chronic Unknown) Anxiety disorder (Chronic 12/24/13) Attention deficit hyperactivity disorder (ADHD), combined type (Chronic 12/27/16) Smoker (Chronic) Short stature disorder (Chronic) possible FAS Moderate single current episode of major depressive disorder (Chronic 02/16/16) Microcephalus (Chronic 06/16/11) possible FAS 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 Patterson Paternal Grandfather Heart disease congenital heart defect Social History Smoking/Tobacco Use Status: Current every day Tobacco Type: e-cigarettes Smoking risk assessment performed?: Yes Alcohol Intake: never Drug use: Never Substance use type: does not use Household members: other Details: 2 Do you feel safe at home: Yes Do you feel safe in your relationship?: Yes History History 1 Para 0 Hx # Term Pregnancies 0 Multiple births 0 Hx # Pregnancies 0 Ectopic pregnancies 0 AB induced 0 Hx Number of Living Children 0 AB spontaneous 0 Exam Const General: cooperative HENMT Head: normocephalic Mouth: moist mucous membranes Eyes Conjunctivae: normal conjunctivae Sclera: normal sclerae Resp Auscultation: clear to auscultation bilaterally, no rales, no rhonchi and no wheezes Cardio Rhythm: regular rhythm GI Palpation: soft, not firm, no guarding and not rigid OB/External & Speculum: deferred Skin General skin exam: no rashes or lesions noted Neuro General: patient alert, patient awake and tone normal Extrem General: no edema Course Vital Signs Vital signs: Vital Signs Temperature 36.4 C L 05/17/22 03:23 Pulse 110 H 05/17/22 03:23 Respiratory Rate 24 05/17/22 03:23 Blood Pressure 144/83 H 05/17/22 03:23 Pulse Oximetry 99 05/17/22 03:23 Temperature 36.4 C L 05/17/22 03:23 Temperature Source Skin 05/17/22 03:23 Pulse 110 H 05/17/22 03:23 Respiratory Rate 24 05/17/22 03:23 Respiratory Effort 05/17/22 03:30 Blood Pressure 144/83 H 05/17/22 03:23 Blood Pressure Position Sitting 05/17/22 03:23 Pulse Oximetry 99 05/17/22 03:23 Oxygen Delivery Method Room Air 05/17/22 03:23 Oxygen Flow Rate 0 05/17/22 03:23 Pain Level 10 05/17/22 03:30
[2022-05-17 03:50] VITALS: BP 144/83; PULSE 110; RESP 24; TEMP 36.4; O2SAT 99
[2022-05-17 03:51] LABS: Abs Immature Grans 0.03 10^3/uL (0.0-0.06); Absolute Basophil Count 0.03 10^3/uL (0.0-0.2); Absolute Lymphocyte Count 1.51 10^3/uL (1.2-3.4); Absolute Monocyte Count 1.11 10^3/uL (0.1-0.8); Absolute Neutrophil Count 6.66 10^3/uL (1.2-6.7); Basophils % 0.3; Eosinophils % 1.1; HCT 31.4 % (36.0-46.0); HGB 10.8 g/dL (11.2-15.7); Immature Grans % 0.3; MCH 31.8 pg (27.0-33.0); MCHC 34.4 % (32.0-36.0); MCV 92 fL (80-95); MPV 9.8 fL (8.0-11.0); Monocytes % 11.8; Neutrophils % 70.5; Platelet Count 298 10^3/uL (130-400); RDW 13.4 % (11.7-14.6); RDW-SD 45.5 fL; WBC 9.44 10^3/uL (4.4-10.8)
[2022-05-17 04:04] LABS: Source Nasal/Nares
[2022-05-17 04:07] LABS: ALT 21 U/L (14-59); AST 18 U/L (15-37); Albumin 2.4 g/dL (3.4-5.0); Alkaline Phosphatase 87 U/L (46-116); Anion Gap 8.7 mmol/L (3-11); BUN 9 mg/dL (7-18); Bilirubin, Total 0.2 mg/dL (0.2-1.0); CO2 23.3 mmol/L (21.0-32.0); CREATININE 0.6 mg/dL (0.55-1.02); Calcium 8.4 mg/dL (8.5-10.1); Chloride 102 mmol/L (98-107); Glucose 97 mg/dL (74-106); Potassium 3.7 mmol/L (3.5-5.1); Sodium 134 mmol/L (136-145); Total Protein 6.2 g/dL (6.4-8.2)
[2022-05-17 04:58] LABS: COVID-19 PCR Negative (Negative)
== END 2022-05-17 03:46 | disposition short-term general hospital (02) ==
PROVIDERS: Obstetrics & Gynecology; Emergency Provider Student in an Organized Health Care Education/Training Program; PCP Nurse Practitioner Family
DX: O26.893 Other specified pregnancy related conditions, third trimester (principal); R10.32 Left lower quadrant pain; R00.0 Tachycardia, unspecified; O99.333 Smoking (tobacco) complicating pregnancy, third trimester; F17.290 Nicotine dependence, other tobacco product, uncomplicated; Z20.822 Contact with and (suspected) exposure to COVID-19; Z3A.31 31 weeks gestation of pregnancy
CPT/HCPCS: 80053; 86850; 86900; 86901; 87635; 99284; 99285; 85025

== ENCOUNTER 2022-05-17 03:50 | Observation (INO) | payer MEDICARE, MEDICAID, SELFPAY ==
[2022-05-17] VITALS (174 sets, daily range): BP systolic 106–151; BP diastolic 56–91; PULSE 73–116; RESP 14–20; TEMP 36.5–37.1; O2SAT 93–100
[2022-05-17 04:18] LABS: Bilirubin Negative (Negative); Blood Negative (Negative); Clarity Clear (Clear); Glucose Negative (Negative); Ketones Negative (Negative); Leukocyte Esterase Negative (Negative); Nitrite Negative (Negative); Urobilinogen 0.2 EU/dL (Up TO 0.2); pH 7.5 (5-8)
--- NOTE | 2022-05-17 04:39 | HPE_ITS ---
Date of service: 05/17/22 Time of Service: 04:44 Assessment and Plan Assessment and plan (1) uterine contractions: Status: Acute Assessment and plan: Patient is a 36-year-old female primigravida at 31 and 2 days. She has a complex medical history for anxiety disorder and anger disorder. She has been out of work for medication including Depakote. She was seen early in the and was consultation with maternal- medicine. She has had the appropriate surveillance and screening lipids at this point. She presented today with onset of intermittent abdominal pain. Over the course of the past few days she has been feeling somewhat poorly and had poor appetite along with loose stools and diarrhea. Upon presentation today, she was initially seen in the emergency department and sent to the center for evaluation. She was noted to have contractions approximately every 3 to 5 minutes which were intense. Bedside ultrasound shows fetus in the vertex position cervical examination was somewhat limited due to patient's discomfort, cervix is closed, 50%,, mid position. Laboratory studies performed showed normal white blood cell count, normal comprehensive panel. Group B strep culture will be performed. She will stay betamethasone. She does have a bolus of 500 cc of normal saline. In light of her status and regular contractions, and need for potential neuro prophylax for 80, magnesium sulfate and steroids would be appropriate at this point. (2) Abdominal pain during in third trimester: Status: Acute (3) Medication exposure during first trimester of : Status: Acute (4) : Status: Acute Qualifiers: Weeks of gestation: less than 8 weeks Qualified Code(s): Z3A.01 - Less than 8 weeks gestation of (5) Anxiety disorder: Status: Acute (6) Juvenile osteochondrosis of hip and pelvis: Status: Chronic Qualifiers: Laterality: left Qualified Code(s): M91.92 - Juvenile osteochondrosis of hip and pelvis, unspecified, left leg (7) Chronic pain syndrome: Status: Chronic OB-HPI Labor/Delivery History of Present Illness Reason for Visit: rule out laBOR Chief Complaint: Uterine Contractions. FAHAD Calculator Estimated Delivery Date Method Current WG Current Estimate 07/17/22 LMP (Certain) 31w 2d Comments: Acute onset of intermittent lower abdominal pain. She is noted at 31 weeks and had care with women's wellness. She was sent to the center for evaluation. Upon presentation she was noted to be uncomfortable with crampy ab dominal pain and contractions approximately every 3 minutes. She has a category 1, reactive nonstress test. Bedside ultrasound performed confirmed fetus in the breech position back to her left adequate fluid and anterior placenta. Cervical exam, cervix is soft though close. Laboratory studies are pending including ROM/and COVID testing. Of note, patient has been feeling somewhat poorly over t he course of the past few days with some nausea, occasional radiation, and looser stools. Baby's been moving and active. She has no loss of fluid, no vaginal bleeding. She has no signs or symptoms of preeclampsia. History of Present Expected Delivery Route/Plan MD patient, patient believes she would need C/S due to hip replacement in left hip and needs replacement for right Formula feeding Specific Issues/Plan 1. Chronic pain, S/P hip surgery- takes hydromorphone Q6 hours. 2. Bipolar disorder - taking depakote for mood - risk of defects. Has tried many other antipsychotics in the past. Stable on this over 10 years. Unsuccessful decreasing dose. -[facility] referral for anatomy sono at 16wks: +echogenic foci but panorama/afp wnl (girl); Repeat sono/echo 02/2022. echocardiogram performed, mitral valve thickening, will have repeat in the third trimester at [facility] 3. History of tachycardia - takes propranolol BID. Did not change dose 4. ADHD - ritalin prescribed. 5. Smoker 6. Short stature 7. H and H 10.8/32.6, Not taking vitamins, vitamin with iron was encouraged and escribed. Recheck at 28 weeks 8. CF neg Review of Systems Narrative: As per history of present illness Constitutional Constitutional: Reports body ache(s), Reports chills, Reports lethargy, Reports night sweats and Reports poor appetite Eyes Eyes: Reports as per HPI, Denies blurry vision and Denies change in vision ENT Ears, Nose, Mouth, and Throat: Reports system reviewed and no additional complaints, except as documented Cardiovascular Cardiovascular: Denies chest pain and Denies rapid heart rate Respiratory Respiratory: Reports as per HPI, Denies chest congestion and Denies cough Gastrointestinal Gastrointestinal: Reports as per HPI, Reports abdominal pain, Reports constipation, Reports cramping, Reports early satiety, Reports diarrhea, Reports loose stools, Reports nausea and Denies vomiting Genitourinary Genitourinary: Reports abnormal vaginal bleeding and Reports vaginal discharge Musculoskeletal Musculoskeletal: Reports system reviewed and no additional complaints, except as documented Neurologic Neurologic: Reports as per HPI Psychiatric Psychiatric: Reports system reviewed and no additional complaints, except as documented, Reports anxiety and Reports irritability PFS All Active Problems (Updated 05/17/22 @ 04:53 by Bruna Koch DO) uterine contractions (Acute) Abdominal pain during in third trimester (Acute) Elevated blood pressure affecting in third trimester, antepartum (Acute) Medication management (Acute) Medication exposure during first trimester of (Acute) (Acute) Positive test (Acute) Skin sore (Acute) Laceration of left upper extremity (Acute) Neck pain (Acute) Stomach disorder (Acute) Rib pain (Acute) Oral candidiasis (Acute) Sinus tachycardia (Acute) takes propanalol 10 mg twice daily Anxiety disorder (Acute) Peripheral neuropathy (Acute) Explosive personality disorder (Chronic Unknown) Anxiety disorder (Chronic 12/24/13) Attention deficit hyperactivity disorder (ADHD), combined type (Chronic 12/27/16) Smoker (Chronic) Short stature disorder (Chronic) possible FAS Moderate single current episode of major depressive disorder (Chronic 02/16/16) Microcephalus (Chronic 06/16/11) possible FAS 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 Patterson Paternal Grandfather Heart disease congenital heart defect Social History Smoking/Tobacco Use Status: Current every day Tobacco Type: e-cigarettes Smoking risk assessment performed?: Yes Alcohol Intake: never Drug use: Never Substance use type: does not use Household members: other Details: 2 Do you feel safe at home: Yes Do you feel safe in your relationship?: Yes History History 1 Para 0 Hx # Term Pregnancies 0 Multiple births 0 Hx # Pregnancies 0 Ectopic pregnancies 0 AB induced 0 Hx Number of Living Children 0 AB spontaneous 0 Meds Allergies and Home Medications Allergies Allergy/AdvReac Type Severity Reaction Status Date / Time venom-honey bee Allergy Severe HIVES Verified 05/17/22 03:27 aripiprazole [From [facility]] AdvReac Intermediate Nausea Verified 05/17/22 03:27 acetaminophen AdvReac Unknown VOMITING; Verified 05/17/22 03:27 WEIGHT LOSS meloxicam AdvReac Unknown NAUSEA/VOMI Verified 05/17/22 03:27 TING hydrocodone AdvReac NAUSEA/VOMI Verified 05/17/22 03:27 TING oxycodone AdvReac VOMITING Verified 05/17/22 03:27 Home Medications Medication Instructions Recorded Confirmed Type epinephrine 0.3 mg/0.3 mL 1 pen IM ONCE 01/20/13 05/17/22 History injection, auto-injector (EpiPen) aluminum chloride 20 % topical 1 applic topical DAILY PRN 07/25/18 05/11/22 History solution triamcinolone acetonide 0.1 % 1 applic topical BID #30 grams 01/03/20 05/11/22 Rx topical cream albuterol sulfate 90 mcg/actuation 2 puff inhalation Q6H PRN 04/23/20 05/17/22 Rx aerosol inhaler (ProAir HFA) shortness of breath #18 grams ondansetron 4 mg disintegrating 4 mg PO Q8H PRN nausea and 04/23/20 05/17/22 Rx tablet vomiting #30 tabs Soft Cervical Collar #1 ea 05/22/20 05/11/22 Rx folic acid 400 mcg tablet 0.4 mg PO DAILY #90 tabs 11/25/21 05/17/22 Rx pseudoephedrine HCl 120 mg 120 mg PO Q12H PRN nasal 12/06/21 05/11/22 Rx tablet,extended release congestion #14 tabs polyethylene glycol 3350 17 17 g PO DAILY #119 grams 12/23/21 05/17/22 Rx gram/dose oral powder (Miralax) omeprazole 20 mg capsule,delayed 20 mg PO BID PRN gerd #60 caps 12/27/21 05/17/22 Rx release propranolol 10 mg tablet 10 mg PO BID 12/27/21 05/17/22 History divalproex 125 mg tablet,delayed 125 mg PO DAILY #90 tabs 12/28/21 05/17/22 Rx release (Depakote) vitamin with calcium 1 tab PO DAILY #90 tabs 02/22/22 05/17/22 Rx no.72-iron 27 mg-folic acid 1 mg tablet (PrePlus) propranolol 10 mg tablet 10 mg PO BID #60 tabs 04/22/22 05/17/22 Rx methylphenidate HCl 20 mg tablet 20 mg PO BID #56 tabs 05/04/22 05/17/22 Rx hydromorphone 2 mg tablet 2 mg PO Q6H PRN pain #112 tabs 05/12/22 05/17/22 Rx Exam Physical Exam Vital Signs Reviewed: Yes Constitutional Constitutional: mild distress and cooperative Detailed Labor and Delivery Exam Dilation: 0 Effacement (%): 50 station: -3 Position: OA Cervix position: posterior Consistency: soft Layne Score: Cervical Points Exam 0 1 2 3 Dilation Closed 1-2cm 3-4 cm 5-6cm Effacement 0-30% 40-50% 60-70% 80% Consistency Firm Medium Soft Station -3 -2 -1,0 +1,+2 Position Posterior Mid Anterior LAYNE Score(Cervical Ripeness Score): 4 Amniotic Membrane Status: Intact ROM Plus: Negative Contraction Frequency(min): 3-5 Contraction Intensity: Moderate Fetus A Heart Rate Baseline: 140 Monitor Accelerations: 15 X 15 Monitor Decelerations: None Variability: Moderate (6-25 BPM) Presentation: Cephalic Categories: Category I HEENT Exam HEENT Exam: Normal Respiratory Exam Respiratory Exam: Normal Detailed Respiratory Exam Respiratory: Absent respiratory distress Cardiovascular Exam Cardiovascular Exam: Normal Abdominal Exam Abdominal Exam: Normal Skin Exam Skin Exam: Normal Risk Assessment Risk for Shoulder Dystocia Historical/Initial OB: POSITIVE FOR: Pelvic Abnormality; NEGATIVE FOR: Pre- BMI>30, Previous Shoulder Dystocia or Previous Macrosomia Date/Initial: 02/15/22 KH Risk for Pre-Eclampsia Date Initiated/Initials: 02/15/22 Yes, if one or more: NEGATIVE FOR: Hx Pre-E/Gest HTN, Chronic HTN, Multiple Gestation, Pre-gestational DM, Renal Disease, Systemic Lupus or APA Syndrome Yes, if 2 or more: POSITIVE FOR: Nulliparity; NEGATIVE FOR: Age>= 35 yrs, >10yr btwn pregnancies, BMI>30, ethinicty, Mother/Sister w/ Pre-E or Previous IUGR Risk for Post- Hemorrhage Initial: NEGATIVE FOR: Multiple Gestation, Previous PPH, Known Clotting Deficiency, Grand Multiparity or Anticoagulation Risks Reviewed Risks Reviewed Upon Admission: Yes
[2022-05-17 04:41] LABS: ROM Plus Negative
[2022-05-17] MEDS: Betamet Acet/Betamet Na Ph Inj. 30 MG/5 ML 12 MG IM (05:00)
[2022-05-17 05:25] LABS: *AMPHETAMINES SCREEN URINE Negative (Negative); *BARBITURATES SCREEN URINE Negative (Negative); *BENZODIAZEPINES SCREEN URINE Negative (Negative); Cannabinoids THC Positive (Negative); Cocaine Screen,Urine Negative (Negative); METHADONE URINE SCREEN Negative (Negative); OPIATES URINE SCREEN Negative (Negative)
[2022-05-17 05:27] LABS: Tricyclic Antidepressants Negative (Negative)
[2022-05-17] MEDS: MAGNESIUM SULFATE 20 GM/500 ML BAG IV ×2 (05:37→14:52)
--- NOTE | 2022-05-17 05:41 | PGE_ITS ---
Date of service: 05/17/22 Time of Service: 05:41 Informed Consent Informed Consent: Other (Magnesium sulfate tocolysis) Contractions Contraction Frequency(min): 5 Contraction Duration(sec): 60 Fetus A Monitor: External (US) Heart Rate Baseline: 135 Variability: Moderate (6-25 BPM) Categories: Category I Objective Abnormal lab results 05/17/22 Range/Units 03:50 Ur THC Screen Positive A (Negative) Temp Pulse Resp BP 98.7 F 87 18 130/71 05/17/22 03:50 05/17/22 04:55 05/17/22 03:50 05/17/22 04:55 Laboratory Results WBC Cancelled 05/17/22 04:41 RBC Cancelled 05/17/22 04:41 Hgb Cancelled 05/17/22 04:41 Hct Cancelled 05/17/22 04:41 MCV Cancelled 05/17/22 04:41 MCH Cancelled 05/17/22 04:41 MCHC Cancelled 05/17/22 04:41 RDW Cancelled 05/17/22 04:41 Plt Count Cancelled 05/17/22 04:41 MPV Cancelled 05/17/22 04:41 Urine Color Yellow (Yellow) 05/17/22 03:50 Urine Clarity Clear (Clear) 05/17/22 03:50 Urine pH 7.5 (5-8) 05/17/22 03:50 Ur Specific [place] 1.020 (1.005-1.025) 05/17/22 03:50 Urine Protein Negative mg/dL (Negative) 05/17/22 03:50 Urine Ketones Negative mg/dL (Negative) 05/17/22 03:50 Urine Blood Negative (Negative) 05/17/22 03:50 Urine Nitrite Negative (Negative) 05/17/22 03:50 Urine Bilirubin Negative (Negative) 05/17/22 03:50 Urine Urobilinogen 0.2 EU/dL (Up TO 0.2) 05/17/22 03:50 Ur Leukocyte Esterase Negative (Negative) 05/17/22 03:50 Urine Glucose Negative mg/dL (Negative) 05/17/22 03:50 Membranes Rupture Negative 05/17/22 03:50 Urine Opiates Screen Negative (Negative) 05/17/22 03:50 Urine Methadone Screen Negative (Negative) 05/17/22 03:50 Ur Barbiturates Screen Negative (Negative) 05/17/22 03:50 Ur Tricyclics Screen Negative (Negative) 05/17/22 03:50 Ur Amphetamines Screen Negative (Negative) 05/17/22 03:50 U Benzodiazepines Scrn Negative (Negative) 05/17/22 03:50 Urine Cocaine Screen Negative (Negative) 05/17/22 03:50 Ur THC Screen Positive (Negative) A 05/17/22 03:50 Patient ABO/Rh Cancelled 05/17/22 04:41 Subjective Interval history since last seen: Patient seen and examined, continue to contract approximately every 3 minutes. Baby moving and active. Uncomfortable with contractions. Laboratory studies reviewed with normal white count slightly decreased hemoglobin. She has a negative ROM plus. Group B strep culture is pending. Urinalysis is pending. In light of her ongoing contract, the decision was made to add 90 sulfate for tocolyse and neuro protection. She did receive her dose of betamethasone which caused significant discomfort in her arm. Arreguin catheter was accurate I&O Results Hemoglobin/Hematocrit: Hgb Cancelled 05/17/22 04:41 Hct Cancelled 05/17/22 04:41 Abnormal Lab Findings: Abnormal Labs 05/17/22 03:50 Ur THC Screen Positive A
[2022-05-17] MEDS: AMPICILLIN SODIUM 2 GM in Normal Saline 100 ML IVPB ×3 (06:18→20:49)
--- NOTE | 2022-05-17 06:20 | NUR.NOTE ---
Nursing Note: at 0350 pt arrived via stretcher from er very uncomfortable with contractions. pt stated she was awakened at 0200 wih abdominal pain and she questions if she was leaking fluid. vitals taken fh is [address] villa in to see pt.
--- NOTE | 2022-05-17 06:37 | W.PM.OBNL1 ---
Date of service: 05/17/22 Time of Service: 06:37 Informed Consent Informed Consent: Other (Magnesium sulfate tocolysis) Contractions Contraction Frequency(min): 10 Contraction Duration(sec): 30 Fetus A Heart Rate Baseline: 135 Objective Abnormal lab results 05/17/22 Range/Units 03:50 Ur THC Screen Positive A (Negative) Temp Pulse Resp BP 98.7 F 87 18 130/71 05/17/22 03:50 05/17/22 04:55 05/17/22 03:50 05/17/22 04:55 Laboratory Results WBC Cancelled 05/17/22 04:41 RBC Cancelled 05/17/22 04:41 Hgb Cancelled 05/17/22 04:41 Hct Cancelled 05/17/22 04:41 MCV Cancelled 05/17/22 04:41 MCH Cancelled 05/17/22 04:41 MCHC Cancelled 05/17/22 04:41 RDW Cancelled 05/17/22 04:41 Plt Count Cancelled 05/17/22 04:41 MPV Cancelled 05/17/22 04:41 Urine Color Yellow (Yellow) 05/17/22 03:50 Urine Clarity Clear (Clear) 05/17/22 03:50 Urine pH 7.5 (5-8) 05/17/22 03:50 Ur Specific [place] 1.020 (1.005-1.025) 05/17/22 03:50 Urine Protein Negative mg/dL (Negative) 05/17/22 03:50 Urine Ketones Negative mg/dL (Negative) 05/17/22 03:50 Urine Blood Negative (Negative) 05/17/22 03:50 Urine Nitrite Negative (Negative) 05/17/22 03:50 Urine Bilirubin Negative (Negative) 05/17/22 03:50 Urine Urobilinogen 0.2 EU/dL (Up TO 0.2) 05/17/22 03:50 Ur Leukocyte Esterase Negative (Negative) 05/17/22 03:50 Urine Glucose Negative mg/dL (Negative) 05/17/22 03:50 Membranes Rupture Negative 05/17/22 03:50 Urine Opiates Screen Negative (Negative) 05/17/22 03:50 Urine Methadone Screen Negative (Negative) 05/17/22 03:50 Ur Barbiturates Screen Negative (Negative) 05/17/22 03:50 Ur Tricyclics Screen Negative (Negative) 05/17/22 03:50 Ur Amphetamines Screen Negative (Negative) 05/17/22 03:50 U Benzodiazepines Scrn Negative (Negative) 05/17/22 03:50 Urine Cocaine Screen Negative (Negative) 05/17/22 03:50 Ur THC Screen Positive (Negative) A 05/17/22 03:50 Patient ABO/Rh Cancelled 05/17/22 04:41 Subjective Interval history since last seen: Patient seen. Some nausea related to her magnesium. She the possibility of transfusion . Dr. Sandy De Oliveira notified. He currently patient is in stable. NVR H with magnesium sulfate and betamethasone for neuro protection. All questions were answered this morning Results Hemoglobin/Hematocrit: Hgb Cancelled 05/17/22 04:41 Hct Cancelled 05/17/22 04:41 Abnormal Lab Findings: Abnormal Labs 05/17/22 03:50 Ur THC Screen Positive A
[2022-05-17] MEDS: Divalproex 125 MG TABEC PO (09:15)
[2022-05-17] MEDS: Lactated Ringers 1,000 ML 125 ML IV (10:01)
[2022-05-17] MEDS: HYDROmorphone 2 MG TAB PO ×4 (11:36→22:43)
[2022-05-17] MEDS: Propranolol 10 MG TAB PO (11:37)
[2022-05-17] MEDS: Methylphenidate 10 MG TAB 20 MG PO (11:37)
[2022-05-17] MEDS: Omeprazole 20 MG CAPCR PO ×2 (12:43→20:17)
--- NOTE | 2022-05-17 13:34 | W.PM.PROGNOT ---
Date of Service Date of service: 05/17/22 Time of Service: 10:45 Assessment and Plan Assessment and plan (1) uterine contractions: Status: Acute Assessment and plan: Continue magnesium at least until after receiving her second betamethasone injection. I definitely recommend continued observance in the hospital until at least tomorrow afternoon. We discussed the difficulty of predicting labor and when contractions may change and cause labor. Her hyde can be removed and she should be out of bed only with assistance. She can sit up in the chair instead of the bed and see if that is more comfortable. Will continue all her routine meds. She can eat/drink regular diet. Will decrease IVF. Subjective Subjective Interval history since last seen: Pt c/o pain and wants to go home. She says she doesn't have the same severe pain she had earlier this am but she is experiencing her chronic joint pain that she takes the hydromorphone for. She has not received her usual meds. She also is uncomfortable with the catheter in place. She also doesn't like being in the hospital and has some anxiety around that. She still feels some abdominal tightening which is the same as what she has been feeling for the past 3 days. No bleeding/LOF. Good movement. Exam Narrative Exam Narrative: Obvious distress, upset Objective Last Vital Signs Temp 98.1 F 05/17/22 12:00 Pulse 86 05/17/22 12:00 Resp 14 05/17/22 12:00 BP 113/64 05/17/22 12:00 Laboratory Results - last 24 hr 05/17/22 05/17/22 05/17/22 03:50 03:50 03:50 WBC RBC Hgb Hct MCV MCH MCHC RDW Plt Count MPV Urine Color Yellow Urine Clarity Clear Urine pH 7.5 Ur Specific [place] 1.020 Urine Protein Negative Urine Ketones Negative Urine Blood Negative Urine Nitrite Negative Urine Bilirubin Negative Urine Urobilinogen 0.2 Ur Leukocyte Esterase Negative Urine Glucose Negative Membranes Rupture Negative Urine Opiates Screen Negative Urine Methadone Screen Negative Ur Barbiturates Screen Negative Ur Tricyclics Screen Negative Ur Amphetamines Screen Negative U Benzodiazepines Scrn Negative Urine Cocaine Screen Negative Ur THC Screen Positive A Patient ABO/Rh 05/17/22 05/17/22 04:41 04:41 WBC Cancelled RBC Cancelled Hgb Cancelled Hct Cancelled MCV Cancelled MCH Cancelled MCHC Cancelled RDW Cancelled Plt Count Cancelled MPV Cancelled Urine Color Urine Clarity Urine pH Ur Specific [place] Urine Protein Urine Ketones Urine Blood Urine Nitrite Urine Bilirubin Urine Urobilinogen Ur Leukocyte Esterase Urine Glucose Membranes Rupture Urine Opiates Screen Urine Methadone Screen Ur Barbiturates Screen Ur Tricyclics Screen Ur Amphetamines Screen U Benzodiazepines Scrn Urine Cocaine Screen Ur THC Screen Patient ABO/Rh Cancelled Objective Narrative Objective Narrative: Cx:soft/midplane. On gentle exam external os is open but internal seems to be closed. At least 50% of cervical length intact.
[2022-05-17] MEDS: Ondansetron 4 MG/2 ML VIAL IVP (17:15)
--- NOTE | 2022-05-17 17:28 | W.PM.PROGNOT ---
Date of Service Date of service: 05/17/22 Time of Service: 17:28 Assessment and Plan Assessment and plan (1) uterine contractions: Status: Acute Assessment and plan: Decreased mag to 1g/hr. Pt feeling better. Will get second betamethasone inj in am and will turn off mag and see if ctxs return. Hopeful for d/c tomorrow afternoon. Subjective Subjective Interval history since last seen: Feeling better. No more contractions. Having nausea but this is a chronic problem for her. Objective Last Vital Signs Temp 97.9 F 05/17/22 15:15 Pulse 81 05/17/22 17:27 Resp 20 05/17/22 16:15 BP 120/61 05/17/22 17:27 Pulse Ox 99 05/17/22 17:23 Laboratory Results - last 24 hr 05/17/22 05/17/22 05/17/22 03:50 03:50 03:50 WBC RBC Hgb Hct MCV MCH MCHC RDW Plt Count MPV Urine Color Yellow Urine Clarity Clear Urine pH 7.5 Ur Specific [place] 1.020 Urine Protein Negative Urine Ketones Negative Urine Blood Negative Urine Nitrite Negative Urine Bilirubin Negative Urine Urobilinogen 0.2 Ur Leukocyte Esterase Negative Urine Glucose Negative Membranes Rupture Negative Urine Opiates Screen Negative Urine Methadone Screen Negative Ur Barbiturates Screen Negative Ur Tricyclics Screen Negative Ur Amphetamines Screen Negative U Benzodiazepines Scrn Negative Urine Cocaine Screen Negative Ur THC Screen Positive A Patient ABO/Rh 05/17/22 05/17/22 04:41 04:41 WBC Cancelled RBC Cancelled Hgb Cancelled Hct Cancelled MCV Cancelled MCH Cancelled MCHC Cancelled RDW Cancelled Plt Count Cancelled MPV Cancelled Urine Color Urine Clarity Urine pH Ur Specific [place] Urine Protein Urine Ketones Urine Blood Urine Nitrite Urine Bilirubin Urine Urobilinogen Ur Leukocyte Esterase Urine Glucose Membranes Rupture Urine Opiates Screen Urine Methadone Screen Ur Barbiturates Screen Ur Tricyclics Screen Ur Amphetamines Screen U Benzodiazepines Scrn Urine Cocaine Screen Ur THC Screen Patient ABO/Rh Cancelled Objective Narrative Objective Narrative: Cx unchanged from prior exam. Still soft and midplane but not dilated.
[2022-05-18] VITALS (19 sets, daily range): BP systolic 90–118; BP diastolic 52–76; PULSE 56–93; RESP 12–18; TEMP 36.4–37.2; O2SAT 99
[2022-05-18] MEDS: AMPICILLIN SODIUM 2 GM in Normal Saline 100 ML IVPB ×2 (02:41→07:57)
[2022-05-18] MEDS: HYDROmorphone 2 MG TAB PO (04:37)
[2022-05-18] MEDS: Betamet Acet/Betamet Na Ph Inj. 30 MG/5 ML 12 MG IM (05:56)
[2022-05-18] MEDS: Omeprazole 20 MG CAPCR PO (06:57)
[2022-05-18] MEDS: Divalproex 125 MG TABEC PO (07:49)
[2022-05-18] MEDS: Propranolol 10 MG TAB PO (07:51)
[2022-05-18] MEDS: Methylphenidate 10 MG TAB 20 MG PO (07:59)
--- NOTE | 2022-05-18 10:32 | W.PM.OBNL1 ---
Date of service: 05/18/22 Time of Service: 10:32 Informed Consent Informed Consent: Other (Magnesium sulfate tocolysis) Pelvic Exam Dilation: 0 Effacement (%): 10 station: -3 Cervix Position: posterior Consistency: medium Vaginal Exam Presentation: Cephalic Contractions Monitor Mode: None Fetus A Monitor: External (US) Heart Rate Baseline: 140 Variability: Moderate (6-25 BPM) Categories: Category I FHR Rhythm: Regular Characteristics: Normal Accelerations: 10 X 10 Decelerations: None Assessment and Plan Assessment and plan (1) uterine contractions: Status: Acute Assessment and plan: Patient is uterine contractions have subsided with magnesium infusion for 24 hours. No evidence of recurrent uterine contractions off the magnesium was discontinued this morning. (2) Abdominal pain during in third trimester: Status: Acute Assessment and plan: Currently patient has normal somatic complaints of . And is comfortable with being discharged home. No evidence of cervical change while hospitalized. She will follow-up in the office early next week and have a appointment at [facility] 06/01/2022. Objective Temp Pulse Resp BP Pulse Ox 97.5 F L 85 14 116/58 L 99 05/18/22 07:30 05/18/22 08:05 05/18/22 07:30 05/18/22 08:05 05/18/22 02:30 Laboratory Results WBC Cancelled 05/17/22 04:41 RBC Cancelled 05/17/22 04:41 Hgb Cancelled 05/17/22 04:41 Hct Cancelled 05/17/22 04:41 MCV Cancelled 05/17/22 04:41 MCH Cancelled 05/17/22 04:41 MCHC Cancelled 05/17/22 04:41 RDW Cancelled 05/17/22 04:41 Plt Count Cancelled 05/17/22 04:41 MPV Cancelled 05/17/22 04:41 Urine Color Yellow (Yellow) 05/17/22 03:50 Urine Clarity Clear (Clear) 05/17/22 03:50 Urine pH 7.5 (5-8) 05/17/22 03:50 Ur Specific [place] 1.020 (1.005-1.025) 05/17/22 03:50 Urine Protein Negative mg/dL (Negative) 05/17/22 03:50 Urine Ketones Negative mg/dL (Negative) 05/17/22 03:50 Urine Blood Negative (Negative) 05/17/22 03:50 Urine Nitrite Negative (Negative) 05/17/22 03:50 Urine Bilirubin Negative (Negative) 05/17/22 03:50 Urine Urobilinogen 0.2 EU/dL (Up TO 0.2) 05/17/22 03:50 Ur Leukocyte Esterase Negative (Negative) 05/17/22 03:50 Urine Glucose Negative mg/dL (Negative) 05/17/22 03:50 Membranes Rupture Negative 05/17/22 03:50 Urine Opiates Screen Negative (Negative) 05/17/22 03:50 Urine Methadone Screen Negative (Negative) 05/17/22 03:50 Ur Barbiturates Screen Negative (Negative) 05/17/22 03:50 Ur Tricyclics Screen Negative (Negative) 05/17/22 03:50 Ur Amphetamines Screen Negative (Negative) 05/17/22 03:50 U Benzodiazepines Scrn Negative (Negative) 05/17/22 03:50 Urine Cocaine Screen Negative (Negative) 05/17/22 03:50 Ur THC Screen Positive (Negative) A 05/17/22 03:50 Patient ABO/Rh Cancelled 05/17/22 04:41 Vital Signs Reviewed: Yes Objective Narrative Objective Narrative: Patient has remained hospitalized for 24 hours no appreciable change in cervical exam. She received tocolyse this that was discontinued in the past this morning. She is comfortable and is aware of the difference between labor contractions and normal somatic complaints of . She is comfortable returning home and will make an effort to take it easy while at home. Subjective Interval history since last seen: Patient reports that she has occasional contractions or abdominal discomfort but nothing like I was having before. Magnesium sulfate infusion was discontinued this morning. No increase in uterine activity since that time. Interventions Other (Patient's magnesium sulfate concentration was discontinued early this morning. She has received her usual narcotic regime while hospitalized.) Results Hemoglobin/Hematocrit: Hgb Cancelled 05/17/22 04:41 Hct Cancelled 05/17/22 04:41 Abnormal Lab Findings: Abnormal Labs 05/17/22 03:50 Ur THC Screen Positive A
== END 2022-05-18 11:00 | disposition home or self-care (01) ==
PROVIDERS: Admitting Provider Obstetrics & Gynecology; PCP Nurse Practitioner Family; Visit Provider Obstetrics & Gynecology
DX: O47.03 False labor before 37 completed weeks of gestation, third trimester (principal); O26.893 Other specified pregnancy related conditions, third trimester; R10.9 Unspecified abdominal pain; O99.343 Other mental disorders complicating pregnancy, third trimester; F41.8 Other specified anxiety disorders; O99.891 Other specified diseases and conditions complicating pregnancy; O99.353 Diseases of the nervous system complicating pregnancy, third trimester; M91 Juvenile osteochondrosis of hip and pelvis; O99.333 Smoking (tobacco) complicating pregnancy, third trimester; F17.210 Nicotine dependence, cigarettes, uncomplicated; F31.9 Bipolar disorder, unspecified; Z79.891 Long term (current) use of opiate analgesic; Z96.642 Presence of left artificial hip joint; G62.9 Polyneuropathy, unspecified; F90.9 Attention-deficit hyperactivity disorder, unspecified type; K21.9 Gastro-esophageal reflux disease without esophagitis; O99.613 Diseases of the digestive system complicating pregnancy, third trimester; G89.4 Chronic pain syndrome
CPT/HCPCS: 80053; 80307; 84112; 85027; 86850; 86900; 86901; 87635; 96365; 96366; 99284; 99285; 81003; 85025; 87081; G0378; J0290; J0702; J2405; J3475

== ENCOUNTER 2022-06-07 05:03 | Outpatient (CLI) | payer MEDICARE, MEDICAID, SELFPAY ==
[2022-06-07] VITALS (7 sets, daily range): BP systolic 97–158; BP diastolic 60–88; PULSE 80–107; TEMP 36.5
[2022-06-07 13:39] LABS: Abs Immature Grans 0.04 10^3/uL (0.0-0.06); Absolute Basophil Count 0.04 10^3/uL (0.0-0.2); Absolute Eosinophil Count 0.03 10^3/uL (0.0-0.7); Absolute Lymphocyte Count 1.83 10^3/uL (1.2-3.4); Absolute Monocyte Count 0.81 10^3/uL (0.1-0.8); Absolute Neutrophil Count 9.77 10^3/uL (1.2-6.7); Basophils % 0.3; Eosinophils % 0.2; HCT 35.3 % (36.0-46.0); Immature Grans % 0.3; Lymphocytes % 14.6; MCH 31.2 pg (27.0-33.0); MCV 92 fL (80-95); MPV 9.8 fL (8.0-11.0); Monocytes % 6.5; Neutrophils % 78.1; Platelet Count 337 10^3/uL (130-400); RBC 3.85 10^6/uL (3.93-5.22); RDW 13.1 % (11.7-14.6); RDW-SD 43.4 fL; WBC 12.51 10^3/uL (4.4-10.8)
[2022-06-07 13:55] LABS: ALT 27 U/L (14-59); AST 19 U/L (15-37); Albumin 2.7 g/dL (3.4-5.0); Alkaline Phosphatase 125 U/L (46-116); Anion Gap 10.1 mmol/L (3-11); BUN 10 mg/dL (7-18); Bilirubin, Total 0.4 mg/dL (0.2-1.0); CO2 22.9 mmol/L (21.0-32.0); CREATININE 0.7 mg/dL (0.55-1.02); Calcium 8.7 mg/dL (8.5-10.1); Chloride 102 mmol/L (98-107); Glucose 115 mg/dL (74-106); Potassium 3.2 mmol/L (3.5-5.1); Sodium 135 mmol/L (136-145)
[2022-06-07 13:56] LABS: COMMENT (LAB VIEW ONLY) 32.79 mg/dL; PROTEIN < 6.0 mg/dL
--- NOTE | 2022-06-07 16:08 | PDOC.NST_ITS ---
Date of service: 06/07/22 Time of Service: 16:08 NST Evaluation Reason for NST Reasons for Nonstress Test: INTRA-UTERINE GROWTH RES Gestational Age Gestational Age in Weeks and Days: 34 Weeks and 2Days Test and Monitor Explained Test/Monitor Explained: Test Explained, Monitor Explained and Patient Verbalized Understanding Vital Signs Blood Pressure: 139/81 Pulse: 107 Temperature: 97.7 F NST Information Date on Monitor: 06/07/22 Time on Monitor: 12:51 Date off Monitor: 06/07/22 Time off Monitor: 13:22 Total Time on Monitor: 31 NST Interventions: PO Hydration and Other NST Evaluation Patient States Movement: Present FHR Baseline: 155 Variability: Moderate 6-25 bpm Accelerations: 15x15 Decelerations: None NST Results: Reactive Note NST Note Note: Patient is seen on the center for nonstress testing. She is in twice weekly surveillance due to IUGR. She has a repeat growth ultrasound scheduled at [facility] in approximately 1-1/2 weeks. We discussed at length the necessity for close surveillance and kick counts. On initial presentation she did have an elevated blood pressure. Laboratory studies were performed including a CBC, CMP, and a urine protein creatinine ratio all of which are normal. She has a reactive, category 1 nonstress test today. visit was also performed. She will have her next nonstress test on 06/10/2022 NST Reviewed and Verified by: Bruna Koch
== END 2022-06-07 13:35 | disposition home or self-care (01) ==
LOC: BCD 05:04 → OBS 12:44
PROVIDERS: PCP Nurse Practitioner Family; Visit Provider Obstetrics & Gynecology
DX: O36.5930 Maternal care for other known or suspected poor fetal growth, third trimester, not applicable or unspecified (principal); Z3A.34 34 weeks gestation of pregnancy
CPT/HCPCS: 59025; 36415; 80053; 82565; 84156; 85025

== ENCOUNTER 2022-06-08 11:02 | Outpatient (CLI) | payer MEDICARE, MEDICAID, SELFPAY ==
[2022-06-08 13:02] VITALS: BP 137/82; PULSE 85; TEMP 36.8
[2022-06-08 13:11] VITALS: BP 137/82; PULSE 85
[2022-06-08 13:27] VITALS: BP 131/77; PULSE 84
[2022-06-08 13:41] VITALS: BP 131/81; PULSE 94
--- NOTE | 2022-06-08 13:48 | W.OBNST ---
Date of service: 06/08/22 Time of Service: 13:48 NST Evaluation Reason for NST Reasons for Nonstress Test: GESTATIONAL HYPERTENSION Gestational Age Gestational Age in Weeks and Days: 34 Weeks and 3Days Test and Monitor Explained Test/Monitor Explained: Test Explained, Monitor Explained and Patient Verbalized Understanding Vital Signs Blood Pressure: 137/82 Pulse: 85 Temperature: 98.2 F Urine Results Urine Protein: Negative Urine Ketones: Negative Urine Glucose: Negative Urine Blood: Negative NST Information Date on Monitor: 06/08/22 Time on Monitor: 13:02 Date off Monitor: 06/08/22 Time off Monitor: 13:44 Total Time on Monitor: 42 NST Interventions: PO Hydration NST Evaluation Patient States Movement: Present FHR Baseline: 140 Variability: Moderate 6-25 bpm Accelerations: 15x15 Decelerations: None Note NST Note Note: Patient called the office with a severe headache and elevated blood pressure reading at home. She was sent for nonstress test and blood pressure readings. Blood pressures are stable in the 130s over 80s. She has a category 1, reactive nonstress test. Her headache has resolved. She will be seen again in the office and on the center on Monday for nonstress test and visit. All questions were answered. NST Reviewed and Verified by: Bruna Koch
[2022-06-08 13:49] VITALS: BP 137/82; PULSE 85; TEMP 36.8
== END 2022-06-08 13:46 | disposition home or self-care (01) ==
LOC: BCD 11:02 → OBS 13:00
PROVIDERS: PCP Nurse Practitioner Family; Visit Provider Obstetrics & Gynecology
DX: O13.3 Gestational [pregnancy-induced] hypertension without significant proteinuria, third trimester (principal); Z3A.34 34 weeks gestation of pregnancy
CPT/HCPCS: 59025

== ENCOUNTER 2022-06-10 09:33 | Outpatient (CLI) | payer MEDICARE, MEDICAID, SELFPAY ==
[2022-06-10 14:05] VITALS: BP 134/75; PULSE 82; TEMP 36.7
[2022-06-10 14:32] VITALS: BP 134/75; PULSE 82
--- NOTE | 2022-06-10 17:13 | W.OBNST ---
Date of service: 06/10/22 Time of Service: 14:00 NST Evaluation Reason for NST Reasons for Nonstress Test: INTRA-UTERINE GROWTH RES Gestational Age Gestational Age in Weeks and Days: 34 Weeks and 5Days Test and Monitor Explained Test/Monitor Explained: Test Explained, Monitor Explained and Patient Verbalized Understanding Vital Signs Blood Pressure: 134/75 Pulse: 82 Temperature: 98.1 F NST Information Date on Monitor: 06/10/22 Time on Monitor: 14:05 Date off Monitor: 06/10/22 NST Interventions: PO Hydration NST Evaluation Patient States Movement: Present FHR Baseline: 135 Variability: Moderate 6-25 bpm Accelerations: 15x15 Decelerations: None NST Results: Reactive Note NST Note NST Reviewed and Verified by: Abimbola Walker
[2022-06-10 17:14] VITALS: BP 134/75; PULSE 82; TEMP 36.7
== END 2022-06-10 15:05 | disposition home or self-care (01) ==
LOC: BCD 09:34 → OBS 14:05
PROVIDERS: PCP Nurse Practitioner Family; Visit Provider Obstetrics & Gynecology
DX: O36.5930 Maternal care for other known or suspected poor fetal growth, third trimester, not applicable or unspecified (principal); Z3A.34 34 weeks gestation of pregnancy; O26.893 Other specified pregnancy related conditions, third trimester
CPT/HCPCS: 59025

== ENCOUNTER 2022-06-13 18:53 | Emergency (ER) | payer MEDICARE, MEDICAID, SELFPAY ==
[2022-06-13 18:56] VITALS: BP 155/53; PULSE 94; RESP 14; TEMP 37.1; O2SAT 99
--- NOTE | 2022-06-15 16:34 | ED.GENADUL_ITS ---
Discharge Plan Disposition Patient Disposition: HOME Condition: Stable Discharge Details Clinical Impression: , Diarrhea Primary Care Provider: Harley Miller ED Provider: Matilda Shelton Home Meds and New Rx's Prescriptions: Continued folic acid 400 mcg tablet 0.4 mg PO DAILY Qty: 90 0RF ondansetron 4 mg tablet,disintegrating 4 mg PO Q8H PRN (Reason: nausea and vomiting) Qty: 30 4RF albuterol sulfate [ProAir HFA] 90 mcg/actuation HFA aerosol inhaler 2 puff IH Q6H PRN (Reason: shortness of breath) Qty: 18 4RF polyethylene glycol 3350 [Miralax] 17 gram/dose powder 17 g PO DAILY Qty: 119 2RF epinephrine [EpiPen] 0.3 MG/0.3 ML auto-injector 1 pen IM ONCE Label Comments: (DME) Soft Cervical Collar small Qty: 1 0RF Rx Instructions: As directed divalproex [Depakote] 125 mg tablet,delayed release (DR/EC) 125 mg PO DAILY Qty: 90 3RF PrePlus 27 mg iron- 1 mg tablet 1 tab PO DAILY Qty: 90 3RF Rx Instructions: give with food (meal/snack) propranolol 10 mg tablet 10 mg PO BID Qty: 60 3RF omeprazole 20 mg capsule,delayed release(DR/EC) 20 mg PO BID PRN (Reason: gerd) Qty: 60 2RF methylphenidate HCl 20 mg tablet 20 mg PO BID MDD 40mg Qty: 56 0RF hydromorphone 2 mg tablet 2 mg PO Q6H MDD 8 mg PRN (Reason: pain) Qty: 112 0RF Discharge Instructions Instructions: (ED), Acute Diarrhea (ED) Additional Instructions: 8-10 glasses of water/popsicles/bananas/rice/applesauce/toast keep yourself hydrated Referrals: Harley Miller, CLAIMS CORRESPONDENCE CLERK [Primary Care Provider] - Discharge Data Discharge Date/Time-TO BE ENTERED AT DEPARTURE: 06/13/22 20:11 Medical Decision Making Patient appears well, she is drinking fluids in the waiting room, she has not had an episode of diarrhea since she has been here She is a nontender abdominal exam Her repeat blood pressure is 120/82 We talked at IV hydration and patient feels as though she is able to hydrate herself at home She is concerned that she has not had as much activity and therefore I did call [facility] TECHNICIAN to see if patient could be monitored in OB She will be discharged from the emergency department directly to OB for evaluation I did not obtain heart tones in the emergency department as patient was discharged to a for further evaluation and treatment She is discharged from the emergency department in stable condition Dr. Walker made aware that patient will be discharged directly to the L[facility]ER TECHNICIAN floor from the ED Medical Records Medical records reviewed: Yes I reviewed the patient's medical records. Lab Data Lab results reviewed: Yes I reviewed the patient's lab results. HPI General Date/Time Provider Initiated Documentation: 06/13/22 19:13 . HPI Narrative: This 36-year-old female presents with report of diarrhea, 5 episodes since 6 this morning. She states that approximately 35 weeks with having cramping with diarrhea only. Denies any blood in stool. Denies any nausea or vomiting. Is able to tolerate p.o. Denies any fever or chills. Denies known sick contacts or known spoiled food consumption. Denies any vaginal bleeding. Denies any urinary symptoms. Denies any recent camping or surgeries. Denies a ny new medication or recent antibiotics. Related Data Home Medications Medication Instructions Recorded Confirmed epinephrine 0.3 mg/0.3 mL 1 pen IM ONCE 01/20/13 06/13/22 injection, auto-injector (EpiPen) albuterol sulfate 90 mcg/actuation 2 puff inhalation Q6H PRN 04/23/20 06/13/22 aerosol inhaler (ProAir HFA) shortness of breath #18 grams ondansetron 4 mg disintegrating 4 mg PO Q8H PRN nausea and 04/23/20 06/13/22 tablet vomiting #30 tabs Soft Cervical Collar #1 ea 05/22/20 06/07/22 folic acid 400 mcg tablet 0.4 mg PO DAILY #90 tabs 11/25/21 06/13/22 polyethylene glycol 3350 17 17 g PO DAILY #119 grams 12/23/21 06/13/22 gram/dose oral powder (Miralax) divalproex 125 mg tablet,delayed 125 mg PO DAILY #90 tabs 12/28/21 06/13/22 release (Depakote) vitamin with calcium 1 tab PO DAILY #90 tabs 02/22/22 06/13/22 no.72-iron 27 mg-folic acid 1 mg tablet (PrePlus) propranolol 10 mg tablet 10 mg PO BID #60 tabs 04/22/22 06/13/22 omeprazole 20 mg capsule,delayed 20 mg PO BID PRN gerd #60 caps 05/30/22 06/13/22 release methylphenidate HCl 20 mg tablet 20 mg PO BID #56 tabs 06/03/22 06/13/22 hydromorphone 2 mg tablet 2 mg PO Q6H PRN pain #112 tabs 06/08/22 06/13/22 Previous Rx's Medication Instructions Recorded albuterol sulfate 90 mcg/actuation 2 puff inhalation Q6H PRN 04/23/20 aerosol inhaler (ProAir HFA) shortness of breath #18 grams ondansetron 4 mg disintegrating 4 mg PO Q8H PRN nausea and 04/23/20 tablet vomiting #30 tabs Soft Cervical Collar #1 ea 05/22/20 folic acid 400 mcg tablet 0.4 mg PO DAILY #90 tabs 11/25/21 polyethylene glycol 3350 17 17 g PO DAILY #119 grams 12/23/21 gram/dose oral powder (Miralax) divalproex 125 mg tablet,delayed 125 mg PO DAILY #90 tabs 12/28/21 release (Depakote) vitamin with calcium 1 tab PO DAILY #90 tabs 02/22/22 no.72-iron 27 mg-folic acid 1 mg tablet (PrePlus) propranolol 10 mg tablet 10 mg PO BID #60 tabs 04/22/22 omeprazole 20 mg capsule,delayed 20 mg PO BID PRN gerd #60 caps 05/30/22 release methylphenidate HCl 20 mg tablet 20 mg PO BID #56 tabs 06/03/22 hydromorphone 2 mg tablet 2 mg PO Q6H PRN pain #112 tabs 06/08/22 Allergies Allergy/AdvReac Type Severity Reaction Status Date / Time venom-honey bee Allergy Severe HIVES Verified 06/14/22 14:44 aripiprazole [From Abiliy] AdvReac Intermediate Nausea Verified 06/14/22 14:44 acetaminophen AdvReac Unknown VOMITING; Verified 06/14/22 14:44 WEIGHT LOSS meloxicam AdvReac Unknown NAUSEA/VOMI Verified 06/14/22 14:44 TING hydrocodone AdvReac NAUSEA/VOMI Verified 06/14/22 14:44 TING oxycodone AdvReac VOMITING Verified 06/14/22 14:44 General Stated Complaint: GenMedical JONN: 3 Review of Systems All systems reviewed & are unremarkable except as noted in HPI and below PFSH All Active Problems (Updated 06/13/22 @ 20:04 by RAMOS Hall) (Acute) Diarrhea (Acute) uterine contractions (Acute) Abdominal pain during in third trimester (Acute) Elevated blood pressure affecting in third trimester, antepartum (Acute) Medication management (Acute) Medication exposure during first trimester of (Acute) (Acute) Positive test (Acute) Skin sore (Acute) Laceration of left upper extremity (Acute) Neck pain (Acute) Stomach disorder (Acute) Rib pain (Acute) Oral candidiasis (Acute) Sinus tachycardia (Acute) takes propanalol 10 mg twice daily Anxiety disorder (Acute) Peripheral neuropathy (Acute) Explosive personality disorder (Chronic Unknown) Anxiety disorder (Chronic 12/24/13) Attention deficit hyperactivity disorder (ADHD), combined type (Chronic 12/27/16) Smoker (Chronic) Short stature disorder (Chronic) possible FAS Moderate single current episode of major depressive disorder (Chronic 02/16/16) Microcephalus (Chronic 06/16/11) possible FAS 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 Patterson Paternal Grandfather Heart disease congenital heart defect Social History Smoking/Tobacco Use Status: Current every day Tobacco Type: e-cigarettes Smoking risk assessment performed?: Yes Alcohol Intake: never Drug use: Occasionally Substance use type: marijuana Household members: other Details: 2 Do you feel safe at home: Yes Do you feel safe in your relationship?: Yes Additional Social history: bipolar disorder History History 1 Para 0 Hx # Term Pregnancies 0 Multiple births 0 Hx # Pregnancies 0 Ectopic pregnancies 0 AB induced 0 Hx Number of Living Children 0 AB spontaneous 0 Exam Const General: cooperative, comfortable and no acute distress Eyes Pupils: PERRL Resp Effort & Inspection: normal respiratory effort Auscultation: clear to auscultation bilaterally Cardio Rate: regular rate Rhythm: regular rhythm GI Other: Gravid uterus, nontender abdominal exam Skin General skin exam: no rashes or lesions noted Neuro General: patient alert and patient oriented x3 Extrem Other: No peripheral edema Course Vital Signs Vital signs: Vital Signs Temperature 37.1 C 06/13/22 18:56 Pulse 94 H 06/13/22 18:56 Respiratory Rate 14 06/13/22 18:56 Blood Pressure 155/53 H 06/13/22 18:56 Pulse Oximetry 99 06/13/22 18:56 Temperature 37.1 C 06/13/22 18:56 Temperature Source Temporal Artery Scan 06/13/22 18:56 Pulse 94 H 06/13/22 18:56 Respiratory Rate 14 06/13/22 18:56 Respiratory Effort Non-Labored 06/13/22 19:03 Respiratory Depth Normal 06/13/22 19:03 Respiratory Pattern Normal 06/13/22 19:03 Blood Pressure 155/53 H 06/13/22 18:56 Blood Pressure Position Sitting 06/13/22 18:56 Pulse Oximetry 99 06/13/22 18:56 Oxygen Delivery Method Room Air 06/13/22 18:56 Oxygen Flow Rate 0 06/13/22 18:56 Pain Level 0 06/13/22 20:10
== END 2022-06-13 20:11 | disposition home or self-care (01) ==
PROVIDERS: Emergency Provider Physician Assistant; PCP Nurse Practitioner Family
DX: O26.893 Other specified pregnancy related conditions, third trimester (principal); R19.7 Diarrhea, unspecified; Z3A.35 35 weeks gestation of pregnancy
CPT/HCPCS: 99281; 99282

== ENCOUNTER 2022-06-13 19:40 | Outpatient (CLI) | payer MEDICARE, MEDICAID, SELFPAY ==
[2022-06-13 20:17] VITALS: BP 127/61; PULSE 76; TEMP 36.9
[2022-06-13 20:19] VITALS: BP 127/61; PULSE 76
[2022-06-15 13:32] VITALS: BP 127/61; PULSE 76; TEMP 36.9
--- NOTE | 2022-06-15 13:32 | W.OBNST ---
Date of service: 06/13/22 Time of Service: 20:30 NST Evaluation Reason for NST Reasons for Nonstress Test: DECREASED MOVEMENT Gestational Age Gestational Age in Weeks and Days: 35 Weeks and 1Days Test and Monitor Explained Test/Monitor Explained: Test Explained, Monitor Explained and Patient Verbalized Understanding Vital Signs Blood Pressure: 127/61 Pulse: 76 Temperature: 98.4 F NST Information Date on Monitor: 06/13/22 Time on Monitor: 20:17 Date off Monitor: 06/13/22 Time off Monitor: 21:04 Total Time on Monitor: 47 NST Interventions: PO Hydration Contraction Frequency: 0 NST Evaluation Patient States Movement: Present FHR Baseline: 140 Variability: Moderate 6-25 bpm Accelerations: 15x15 and 10x10 Decelerations: None NST Results: Reactive Note NST Note NST Reviewed and Verified by: Abimbola Walker
== END 2022-06-13 21:08 | disposition home or self-care (01) ==
LOC: BCD 19:41 → OBS 20:14
PROVIDERS: PCP Nurse Practitioner Family; Visit Provider Obstetrics & Gynecology
DX: O36.8130 Decreased fetal movements, third trimester, not applicable or unspecified (principal); Z3A.35 35 weeks gestation of pregnancy; O26.893 Other specified pregnancy related conditions, third trimester
CPT/HCPCS: 59025; 99281; 99282

== ENCOUNTER 2022-06-14 08:29 | Outpatient (CLI) | payer MEDICARE, MEDICAID, SELFPAY | END 2022-06-14 08:30 | disposition home or self-care (01) | LOC: BCD 08:34 | PROVIDERS: PCP Nurse Practitioner Family; Visit Provider Obstetrics & Gynecology ==

== ENCOUNTER 2022-06-14 15:23 | Outpatient (CLI) | payer MEDICARE, MEDICAID, SELFPAY ==
[2022-06-14 15:31] LABS: Abs Immature Grans 0.06 10^3/uL (0.0-0.06); Absolute Eosinophil Count 0.05 10^3/uL (0.0-0.7); Absolute Monocyte Count 0.77 10^3/uL (0.1-0.8); Basophils % 0.3; Eosinophils % 0.4; HCT 34.2 % (36.0-46.0); HGB 11.8 g/dL (11.2-15.7); Immature Grans % 0.5; Lymphocytes % 16.1; MCH 31.6 pg (27.0-33.0); MCHC 34.5 % (32.0-36.0); MCV 91 fL (80-95); MPV 9.7 fL (8.0-11.0); Monocytes % 6.7; Platelet Count 317 10^3/uL (130-400); RBC 3.74 10^6/uL (3.93-5.22); RDW 13.3 % (11.7-14.6); RDW-SD 44.8 fL; WBC 11.46 10^3/uL (4.4-10.8)
[2022-06-14 15:33] LABS: Absolute Basophil Count 0.03 10^3/uL (0.0-0.2); Absolute Lymphocyte Count 1.85 10^3/uL (1.2-3.4); Absolute Neutrophil Count 8.71 10^3/uL (1.2-6.7)
[2022-06-14 15:46] LABS: BUN 6 mg/dL (7-18); CREATININE 0.7 mg/dL (0.55-1.02); Calcium 8.7 mg/dL (8.5-10.1); Glucose 103 mg/dL (74-106); Total Protein 6.6 g/dL (6.4-8.2)
[2022-06-14 15:47] LABS: ALT 26 U/L (14-59); AST 19 U/L (15-37); Albumin 2.5 g/dL (3.4-5.0); Alkaline Phosphatase 134 U/L (46-116); Anion Gap 7.6 mmol/L (3-11); Bilirubin, Total 0.3 mg/dL (0.2-1.0); CO2 21.4 mmol/L (21.0-32.0); Chloride 104 mmol/L (98-107); Potassium 3.6 mmol/L (3.5-5.1); Sodium 133 mmol/L (136-145)
== END 2022-06-14 15:24 | disposition home or self-care (01) ==
LOC: LBO 15:23
PROVIDERS: PCP Nurse Practitioner Family; Visit Provider Obstetrics & Gynecology
DX: Z34.93 Encounter for supervision of normal pregnancy, unspecified, third trimester (principal); Z3A.35 35 weeks gestation of pregnancy
CPT/HCPCS: 36415; 80053; 85025

== ENCOUNTER 2022-06-21 09:53 | Outpatient (CLI) | payer MEDICARE, MEDICAID, SELFPAY ==
[2022-06-21] VITALS (7 sets, daily range): BP systolic 142–187; BP diastolic 77–94; PULSE 63–106; RESP 16–17; TEMP 36.5
[2022-06-21] MEDS: hydrALAZINE 20 MG/ML VIAL IVP (13:54)
[2022-06-21 13:56] LABS: HCT 35.6 % (36.0-46.0); HGB 12.2 g/dL (11.2-15.7); MCH 30.8 pg (27.0-33.0); MCHC 34.3 % (32.0-36.0); MCV 90 fL (80-95); MPV 10.1 fL (8.0-11.0); Platelet Count 327 10^3/uL (130-400); RBC 3.96 10^6/uL (3.93-5.22); RDW 13.2 % (11.7-14.6); RDW-SD 43.5 fL
[2022-06-21 14:03] LABS: COMMENT (LAB VIEW ONLY) 25.59 mg/dL; Prot/Crea Ur Ratio 0.31
--- NOTE | 2022-06-21 14:12 | NUR.NOTE ---
MD and RN at bedside. MD discussing plan of care with pt. Pt visibly and vocally upset and would like to go home. Nursing Note:
[2022-06-21 14:15] LABS: ALT 25 U/L (14-59); AST 22 U/L (15-37); Albumin 2.5 g/dL (3.4-5.0); Alkaline Phosphatase 129 U/L (46-116); Anion Gap 11.1 mmol/L (3-11); BUN 7 mg/dL (7-18); Bilirubin, Total 0.3 mg/dL (0.2-1.0); CO2 21.9 mmol/L (21.0-32.0); CREATININE 0.6 mg/dL (0.55-1.02); Calcium 8.7 mg/dL (8.5-10.1); Chloride 103 mmol/L (98-107); Glucose 88 mg/dL (74-106); Potassium 3.8 mmol/L (3.5-5.1); Sodium 136 mmol/L (136-145); Total Protein 6.6 g/dL (6.4-8.2)
--- NOTE | 2022-06-21 14:19 | NUR.NOTE ---
RN unable to recheck blood pressure at required time after medication administration due to pt disposition. MD at bedside informing RN to hold off on bp for a few minNursing Note:
--- NOTE | 2022-06-21 14:23 | W.PM.OBHPL1 ---
Date of service: 06/21/22 Time of Service: 14:23 Assessment and Plan Assessment and plan (1) Pre-eclampsia in third trimester: Status: Acute Assessment and plan: Patient has known severe growth restriction with a fetus at less than the 5th percentile, with most recent ultrasound performed 06/17/2022 at [facility]. Patient has been in surveillance. She has had borderline elevated blood pressures with history of chronic hypertension on propranolol, however today's visit revealed blood pressures of 160s-170s over 80s to 90s. This was during her surveillance with nonstress testing. She does have a reactive, category 1 strip with occasional irregular contractions. In light of her elevated blood pressures, IV was started, she was given hydralazine x2 doses with blood pressure resolution to 140/77. Baseline laboratory studies were performed including a CBC, and CMP which are normal and she does have an elevation in her urine protein creatinine ratio from undetectable last week to 0.31 at this point. In light of her significant growth restriction and now elevated blood pressure, the diagnosis of eclampsia with severe features is made. The recommendation would be for magnesium sulfate for seizure prophylaxis, transfer to a tertiary care center, at [facility] for probable delivery today. Patient adamantly refuses magnesium sulfate, group B strep culture, and is insisting upon discharge home. We did discuss at length with both her and her partner that this would be AGAINST MEDICAL ADVICE. If she were to leave the hospital, the recommendation would be to present to [facility] today for evaluation, treatment, and probable delivery. We discussed the possibility of worsening of her condition, medical instability, seizures, stroke, jeopardy. Patient and her verbalized understanding. (2) Elevated blood pressure affecting in third trimester, antepartum: Status: Acute Assessment and plan: Blood pressure 142/77 after hydralazine x2 doses (3) Explosive personality disorder: Status: Chronic Assessment and plan: Baseline personality disorder may be confounding her decision-making process in light of the fact that she is insistent on leaving AGAINST MEDICAL ADVICE. (4) Short stature disorder: Status: Chronic (5) Chronic pain syndrome: Status: Chronic (6) Total replacement of hip: OB-HPI Labor/Delivery History of Present Illness Reason for Visit: NST Chief Complaint: Other ( surveillance with identification of severe preeclampsia). FAHAD Calculator Estimated Delivery Date Method Current WG Current Estimate 07/17/22 LMP (Certain) 36w 2d Comments: Found to have significantly elevated BP, 160-170/80-90. IV established, labs drawn, Hydralizine given x 1 so far. Discussed situation and transfer of care to [facility]. Patient adamantly insists on D?C home prior to transfer. This would be against medical advice. Risks of Pre-eclampsia with severe features discussed at length with patient and her partner History of Present Expected Delivery Route/Plan patient, patient believes she would need C/S due to hip replacement in left hip and needs replacement for right Formula feeding Specific Issues/Plan 1. Chronic pain, S/P hip surgery- takes hydromorphone Q6 hours. 2. Bipolar disorder - taking depakote for mood - risk of defects. Has tried many other antipsychotics in the past. Stable on this over 10 years. Unsuccessful decreasing dose. -[facility] referral for anatomy sono at 16wks: +echogenic foci but panorama/afp wnl (girl); Repeat sono/echo 02/2022. echocardiogram performed, mitral valve thickening, will have repeat in the third trimester at [facility] 3. History of tachycardia - takes propranolol BID. Did not change dose 4. ADHD - ritalin prescribed. 5. Smoker 6. Short stature 7. H and H 10.8/32.6, Not taking vitamins, vitamin with iron was encouraged and escribed. Recheck at 28 weeks 8. CF neg 9. IUGR- surveillance with twice weekly nonstress testing performed at 34 weeks. Growth ultrasounds every 2 weeks performed at [facility]. Careful surveillance for the possibility of preeclampsia with elevated blood pressure on 06/07/2022. Laboratory studies performed. Delivery at 38 weeks, or sooner if necessary. Spoke with Dr. Mckeon 06/20/22. Twice weekly NST, Weekly JEFFREY. Delivery is OK here by primary C/S at 38 weeks, sooner if indicated. Note sent to peds Narrative: Significant IUGR, now with elevated blood pressure and U/P ratio of 0.31, consistent with Pre-eclampsia with severe features. Patient reports bilateral lower extremity edema, epigastric pain, no cephalgia Review of Systems Constitutional Constitutional: Reports fatigue and Reports poor appetite Eyes Eyes: Reports system reviewed and no additional complaints, except as documented, Denies blind spots, Denies blurry vision, Denies change in vision and Denies floaters ENT Ears, Nose, Mouth, and Throat: Reports system reviewed and no additional complaints, except as documented Cardiovascular Cardiovascular: Reports as per HPI, Denies chest pain, Denies irregular heart rhythm, Denies dyspnea and Reports dyspnea on exertion Respiratory Respiratory: Denies dyspnea and Reports dyspnea on exertion Gastrointestinal Gastrointestinal: Reports as per HPI, Denies abdominal pain, Denies heartburn, Denies nausea and Reports other (Mild right upper quadrant discomfort) Musculoskeletal Musculoskeletal: Reports system reviewed and no additional complaints, except as documented, Reports back pain and Reports myalgias Integumentary/Breasts Skin/Breast: Reports system reviewed and no additional complaints, except as documented Endocrine Endocrine: Reports fatigue PFSH All Active Problems (Updated 06/21/22 @ 15:11 by rBuna Koch DO) Pre-eclampsia in third trimester (Acute) (Acute) Diarrhea (Acute) uterine contractions (Acute) Elevated blood pressure affecting in third trimester, antepartum (Acute) Medication management (Acute) Medication exposure during first trimester of (Acute) (Acute) Positive test (Acute) Skin sore (Acute) Laceration of left upper extremity (Acute) Neck pain (Acute) Stomach disorder (Acute) Rib pain (Acute) Oral candidiasis (Acute) Sinus tachycardia (Acute) takes propanalol 10 mg twice daily Anxiety disorder (Acute) Peripheral neuropathy (Acute) Explosive personality disorder (Chronic Unknown) Anxiety disorder (Chronic 12/24/13) Attention deficit hyperactivity disorder (ADHD), combined type (Chronic 12/27/16) Smoker (Chronic) Short stature disorder (Chronic) possible FAS Moderate single current episode of major depressive disorder (Chronic 02/16/16) Microcephalus (Chronic 06/16/11) possible FAS 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 Patterson Paternal Grandfather Heart disease congenital heart defect Social History Smoking/Tobacco Use Status: Current every day Tobacco Type: e-cigarettes Smoking risk assessment performed?: Yes Alcohol Intake: never Drug use: Occasionally Substance use type: marijuana Household members: other Details: 2 Do you feel safe at home: Yes Do you feel safe in your relationship?: Yes Additional Social history: bipolar disorder History History 1 Para 0 Hx # Term Pregnancies 0 Multiple births 0 Hx # Pregnancies 0 Ectopic pregnancies 0 AB induced 0 Hx Number of Living Children 0 AB spontaneous 0 Meds Allergies and Home Medications Allergies Allergy/AdvReac Type Severity Reaction Status Date / Time venom-honey bee Allergy Severe HIVES Verified 06/14/22 14:44 aripiprazole [From Abilify] AdvReac Intermediate Nausea Verified 06/14/22 14:44 acetaminophen AdvReac Unknown VOMITING; Verified 06/14/22 14:44 WEIGHT LOSS meloxicam AdvReac Unknown NAUSEA/VOMI Verified 06/14/22 14:44 TING hydrocodone AdvReac NAUSEA/VOMI Verified 06/14/22 14:44 TING oxycodone AdvReac VOMITING Verified 06/14/22 14:44 Home Medications Medication Instructions Recorded Confirmed Type epinephrine 0.3 mg/0.3 mL 1 pen IM ONCE 01/20/13 06/21/22 History injection, auto-injector (EpiPen) albuterol sulfate 90 mcg/actuation 2 puff inhalation Q6H PRN 04/23/20 06/21/22 Rx aerosol inhaler (ProAir HFA) shortness of breath #18 grams ondansetron 4 mg disintegrating 4 mg PO Q8H PRN nausea and 04/23/20 06/21/22 Rx tablet vomiting #30 tabs Soft Cervical Collar #1 ea 05/22/20 06/21/22 Rx folic acid 400 mcg tablet 0.4 mg PO DAILY #90 tabs 11/25/21 06/21/22 Rx polyethylene glycol 3350 17 17 g PO DAILY #119 grams 12/23/21 06/21/22 Rx gram/dose oral powder (Miralax) divalproex 125 mg tablet,delayed 125 mg PO DAILY #90 tabs 12/28/21 06/21/22 Rx release (Depakote) vitamin with calcium 1 tab PO DAILY #90 tabs 02/22/22 06/21/22 Rx no.72-iron 27 mg-folic acid 1 mg tablet (PrePlus) propranolol 10 mg tablet 10 mg PO BID #60 tabs 04/22/22 06/21/22 Rx omeprazole 20 mg capsule,delayed 20 mg PO BID PRN gerd #60 caps 05/30/22 06/21/22 Rx release methylphenidate HCl 20 mg tablet 20 mg PO BID #56 tabs 06/03/22 06/21/22 Rx hydromorphone 2 mg tablet 2 mg PO Q6H PRN pain #112 tabs 06/08/22 06/21/22 Rx Exam Physical Exam Vital signs: Temp Pulse Resp BP 97.7 F 73 17 169/85 H 06/21/22 13:43 06/21/22 14:00 06/21/22 13:43 06/21/22 14:00 Vital Signs Reviewed: Yes Notable Details: Elevated blood pressure Narrative: Blood pressures running 160s?170s over 80s to 90s before IV access and hydralazine. After her second dose of hydralazine 142/77. Constitutional Constitutional: no acute distress and agitated Detailed Labor and Delivery Exam Krishnamurthy Score: Cervical Points Exam 0 1 2 3 Dilation Closed 1-2cm 3-4 cm 5-6cm Effacement 0-30% 40-50% 60-70% 80% Consistency Firm Medium Soft Station -3 -2 -1,0 +1,+2 Position Posterior Mid Anterior Fetus A Heart Rate Baseline: 140 Monitor Accelerations: 15 X 15 Monitor Decelerations: None Variability: Moderate (6-25 BPM) Categories: Category I Neck Exam Neck Exam: Normal Respiratory Exam Respiratory Exam: Normal Cardiovascular Exam Cardiovascular Exam: Normal Abdominal Exam Abdominal Exam: Normal Exam Exam: Not Done (Patient declines group B strep culture and pelvic examination) Detailed Extremities Exam Extremities: Present edema (2+ bilateral); Absent calf tenderness Detailed Neurological Exam Neurological: Present alert and oriented X3; Absent clonus DetailedPsychiatric Exam Psychiatric: Present agitated Results Abnormal Lab Findings: Abnormal Labs 06/21/22 06/21/22 13:45 13:45 Hct 35.6 L Anion Gap 11.1 H Alkaline Phosphatase 129 H Albumin 2.5 L Risk Assessment Risk for Shoulder Dystocia Historical/Initial OB: POSITIVE FOR: Pelvic Abnormality; NEGATIVE FOR: Pre- BMI>30, Previous Shoulder Dystocia or Previous Macrosomia Date/Initial: 02/15/22 KH Risk for Pre-Eclampsia Date Initiated/Initials: 02/15/22 Yes, if one or more: NEGATIVE FOR: Hx Pre-E/Gest HTN, Chronic HTN, Multiple Gestation, Pre-gestational DM, Renal Disease, Systemic Lupus or APA Syndrome Yes, if 2 or more: POSITIVE FOR: Nulliparity; NEGATIVE FOR: Age>= 35 yrs, >10yr btwn pregnancies, BMI>30, ethinicty, Mother/Sister w/ Pre-E or Previous IUGR Risk for Post- Hemorrhage Initial: NEGATIVE FOR: Multiple Gestation, Previous PPH, Known Clotting Deficiency, Grand Multiparity or Anticoagulation Risks Reviewed Risks Reviewed Upon Admission: Yes
[2022-06-21] MEDS: hydrALAZINE 20 MG/ML VIAL (14:34)
--- NOTE | 2022-06-21 14:48 | NUR.NOTE ---
and RN at bedside giving update to pt. MD has informed pt of recommendations for moving forward. Pt very upset that she is unable to go home and get her things and take care of her animals before going to [facility]. At this time pt is refusing to allow MD to obtain a GBS culture. MD at bedside calmly listening to and addressing pt concerns with continued effort to make a safe plan for pt moving forward. Nursing Note:
--- NOTE | 2022-06-21 15:21 | NUR.NOTE ---
MD and RN at bedside to discuss pt decision with pt and FOB on staying at [facility] to begin magnesium and go to transport via ambulance. Pt has ultimately decided to drive to [facility] on her own. MD reviewed risks and recommendations once again. Pt confirms understanding and still decides to go. Nursing Note:
[2022-06-21 17:49] LABS: Uric Acid 5.1 mg/dL (2.6-6.0)
== END 2022-06-21 15:30 | disposition left against medical advice (07) ==
LOC: BCD 09:54 → OBS 12:41
PROVIDERS: PCP Nurse Practitioner Family; Visit Provider Obstetrics & Gynecology
DX: O26.93 Pregnancy related conditions, unspecified, third trimester (principal); O36.5930 Maternal care for other known or suspected poor fetal growth, third trimester, not applicable or unspecified; O14.93 Unspecified pre-eclampsia, third trimester; O99.343 Other mental disorders complicating pregnancy, third trimester; Z53.29 Procedure and treatment not carried out because of patient's decision for other reasons
CPT/HCPCS: 36415; 80053; 85027; 86850; 86900; 86901; 59025; 82565; 84156; 84550; 87081; G0378; J0360

== ENCOUNTER 2022-06-24 20:24 | Emergency (ER) | payer MEDICARE, MEDICAID, SELFPAY ==
[2022-06-24] VITALS (18 sets, daily range): BP systolic 105–146; BP diastolic 62–81; PULSE 93–116; RESP 14–22; TEMP 36.7–36.8; O2SAT 97–99
--- NOTE | 2022-06-24 21:04 | ED.GENADUL_ITS ---
Discharge Plan Disposition Patient Disposition: HOME Condition: Improving Discharge Details Chief Complaint: SUPERVISING FIRE MARSHAL Clinical Impression: Hypertension, Anemia, Bruising Primary Care Provider: Harley Miller ED Provider: Frank García Home Meds and New Rx's Prescriptions: No Action folic acid 400 mcg tablet 0.4 mg PO DAILY Qty: 90 0RF ondansetron 4 mg tablet,disintegrating 4 mg PO Q8H PRN (Reason: nausea and vomiting) Qty: 30 4RF albuterol sulfate [ProAir HFA] 90 mcg/actuation HFA aerosol inhaler 2 puff IH Q6H PRN (Reason: shortness of breath) Qty: 18 4RF polyethylene glycol 3350 [Miralax] 17 gram/dose powder 17 g PO DAILY Qty: 119 2RF epinephrine [EpiPen] 0.3 MG/0.3 ML auto-injector 1 pen IM ONCE Label Comments: (DME) Soft Cervical Collar small Qty: 1 0RF Rx Instructions: As directed divalproex [Depakote] 125 mg tablet,delayed release (DR/EC) 125 mg PO DAILY Qty: 90 3RF PrePlus 27 mg iron- 1 mg tablet 1 tab PO DAILY Qty: 90 3RF Rx Instructions: give with food (meal/snack) propranolol 10 mg tablet 10 mg PO BID Qty: 60 3RF omeprazole 20 mg capsule,delayed release(DR/EC) 20 mg PO BID PRN (Reason: gerd) Qty: 60 2RF methylphenidate HCl 20 mg tablet 20 mg PO BID MDD 40mg Qty: 56 0RF Colace 50 mg Capsule 50 mg PO BID hydromorphone 2 mg tablet 2 - 4 mg PO Q6H MDD 8 mg PRN (Reason: pain) Discharge Instructions Instructions: Anemia (ED) Additional Instructions: Please follow-up with women's health next week. Please return the emergency department for any worsening symptoms such as but not limited to shortness of breath lightheadedness chest pain passing out worsening bruising or pain bleeding or other abnormal symptoms. Medical Decision Making 36-year-old female history of preeclampsia delivered emergently/urgently at [facility] for preeclampsia presents with right labial swelling and pain. Noted to have elevated blood pressure on arrival 145/69. Tachycardia likely related to discomfort and mild anxiety however patient endorses baseline elevated heart rate. Denies chest pain shortness of breath nausea vomiting or abdominal pain. Does have some tenderness in her right labia majora found to have ecchymosis in this region as well as her mons pubis, no crepitus no warmth or induration no fluctuance or signs of abscess or cellulitis, no vaginal discharge, likely settling ecchymosis from section in dependent regions of body. Low suspicion for postoperative infection or continued postoperative bleeding. Patient's blood pressure is in preeclamptic range at this time she does not have any signs of distress, will obtain labs including CBC chemistry mag LFTs LDH uric acid urinalysis will assess for proteinuria, will administer low-dose hydralazine and anti-inflammatory analgesia. Reassessment of blood pressure. Disposition pending lab results and reassessment. If she does not have any severe symptomatology with regards to blood pressure and laboratory analysis and we are able to control her blood pressure and discomfort will discharge patient and have her follow-up with [facility] [place]. Otherwise will consider admission for continued preeclampsia. 22: 24 patient resting comfortably no acute distress. Blood pressure is improved to normal range. Heart rate in the high 90s. Found to be anemic to 7. Asked patient regarding blood loss during procedure says she thinks she might of lost a fair amount of blood during her section. Denies any chest pain or shortness of breath occasionally feels lightheaded. No syncope nausea vomiting or fevers. Counseled patient that I would like to start a transfusion of 1 to 2 units PRBC however patient would like to wait does not feel comfortable at this time receiving a transfusion and would like to follow-up with women's health and see how she feels. Patient is alert oriented nontoxic. No proteinuria. Patient is on propranolol at home. Patient be given home instructions and return precautions. HPI General Date/Time Provider Initiated Documentation: 06/24/22 20:27 . HPI Narrative: 36-year-old female history of preeclampsia recently delivered via emergent section at [facility] for preeclampsia, on propranolol for chronically elevated heart rate and blood pressure, presents endorsing swelling in her labia over the past day. Denies fevers chills nausea vomiting headache chest pain shortness of breath or other abnormal symptoms. Baby is healthy and is at home with father. Related Data Home Medications Medication Instructions Recorded Confirmed epinephrine 0.3 mg/0.3 mL 1 pen IM ONCE 01/20/13 06/24/22 injection, auto-injector (EpiPen) albuterol sulfate 90 mcg/actuation 2 puff inhalation Q6H PRN 04/23/20 06/24/22 aerosol inhaler (ProAir HFA) shortness of breath #18 grams ondansetron 4 mg disintegrating 4 mg PO Q8H PRN nausea and 04/23/20 06/24/22 tablet vomiting #30 tabs Soft Cervical Collar #1 ea 05/22/20 06/21/22 folic acid 400 mcg tablet 0.4 mg PO DAILY #90 tabs 11/25/21 06/21/22 polyethylene glycol 3350 17 17 g PO DAILY #119 grams 12/23/21 06/24/22 gram/dose oral powder (Miralax) divalproex 125 mg tablet,delayed 125 mg PO DAILY #90 tabs 12/28/21 06/24/22 release (Depakote) vitamin with calcium 1 tab PO DAILY #90 tabs 02/22/22 06/24/22 no.72-iron 27 mg-folic acid 1 mg tablet (PrePlus) propranolol 10 mg tablet 10 mg PO BID #60 tabs 04/22/22 06/24/22 omeprazole 20 mg capsule,delayed 20 mg PO BID PRN gerd #60 caps 05/30/22 06/24/22 release methylphenidate HCl 20 mg tablet 20 mg PO BID #56 tabs 06/03/22 06/24/22 docusate sodium 50 mg capsule 50 mg PO BID 06/24/22 06/24/22 hydromorphone 2 mg tablet 2 - 4 mg PO Q6H PRN pain 06/24/22 06/24/22 Previous Rx's Medication Instructions Recorded albuterol sulfate 90 mcg/actuation 2 puff inhalation Q6H PRN 04/23/20 aerosol inhaler (ProAir HFA) shortness of breath #18 grams ondansetron 4 mg disintegrating 4 mg PO Q8H PRN nausea and 04/23/20 tablet vomiting #30 tabs Soft Cervical Collar #1 ea 05/22/20 folic acid 400 mcg tablet 0.4 mg PO DAILY #90 tabs 11/25/21 polyethylene glycol 3350 17 17 g PO DAILY #119 grams 12/23/21 gram/dose oral powder (Miralax) divalproex 125 mg tablet,delayed 125 mg PO DAILY #90 tabs 12/28/21 release (Depakote) vitamin with calcium 1 tab PO DAILY #90 tabs 02/22/22 no.72-iron 27 mg-folic acid 1 mg tablet (PrePlus) propranolol 10 mg tablet 10 mg PO BID #60 tabs 04/22/22 omeprazole 20 mg capsule,delayed 20 mg PO BID PRN gerd #60 caps 05/30/22 release methylphenidate HCl 20 mg tablet 20 mg PO BID #56 tabs 06/03/22 Allergies Allergy/AdvReac Type Severity Reaction Status Date / Time venom-honey bee Allergy Severe HIVES Verified 06/24/22 20:38 [facility] AdvReac Intermediate Nausea Verified 06/24/22 20:38 acetaminophen AdvReac Unknown VOMITING; Verified 06/24/22 20:38 WEIGHT LOSS meloxicam AdvReac Unknown NAUSEA/VOMI Verified 06/24/22 20:38 TING hydrocodone AdvReac NAUSEA/VOMI Verified 06/24/22 20:38 TING oxycodone AdvReac VOMITING Verified 06/24/22 20:38 General Stated Complaint: SUPERVISING FIRE MARSHAL JONN: 3 Review of Systems Narrative: Review of Systems Constitutional: negative Eyes: negative ENT: negative Cardiovascular: negative Respiratory: negative Gastrointestinal: negative : negative Musculoskeletal: negative Skin: Swollen labia Neurologic: negative Psych: negative PFSH All Active Problems (Updated 06/24/22 @ 22:27 by Frank García MD) Hypertension (Chronic) Anemia (Chronic) Bruising (Acute) Pre-eclampsia in third trimester (Acute) (Acute) Diarrhea (Acute) uterine contractions (Acute) Elevated blood pressure affecting in third trimester, antepartum (Acute) Medication management (Acute) Medication exposure during first trimester of (Acute) (Acute) Positive test (Acute) Skin sore (Acute) Laceration of left upper extremity (Acute) Neck pain (Acute) Stomach disorder (Acute) Rib pain (Acute) Oral candidiasis (Acute) Sinus tachycardia (Acute) takes propanalol 10 mg twice daily Anxiety disorder (Acute) Peripheral neuropathy (Acute) Explosive personality disorder (Chronic Unknown) Anxiety disorder (Chronic 12/24/13) Attention deficit hyperactivity disorder (ADHD), combined type (Chronic 12/27/16) Smoker (Chronic) Short stature disorder (Chronic) possible FAS Moderate single current episode of major depressive disorder (Chronic 02/16/16) Microcephalus (Chronic 06/16/11) possible FAS 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 Patterson Paternal Grandfather Heart disease congenital heart defect Social History Smoking/Tobacco Use Status: Current every day Tobacco Type: e-cigarettes Smoking risk assessment performed?: Yes Alcohol Intake: never Drug use: Occasionally Substance use type: marijuana Household members: other Details: 2 Do you feel safe at home: Yes Do you feel safe in your relationship?: Yes Additional Social history: bipolar disorder History History 1 Para 0 Hx # Term Pregnancies 0 Multiple births 0 Hx # Pregnancies 0 Ectopic pregnancies 0 AB induced 0 Hx Number of Living Children 0 AB spontaneous 0 Exam Narrative Exam Narrative: Physical Examination General: alert, awake, cooperative, resting comfortably, no acute distress HEENT: normocephalic, atraumatic; PERRL, EOM intact, conjunctiva normal; no nasal discharge; moist mucous membranes, oral and pharyngeal mucosa normal, tolerating secretions Neck: supple, trachea midline; full ROM Chest: normal to inspection Respiratory: normal respiratory effort, speaking in full sentences, clear to auscultation, no wheezing, rales or rhonchi Cardiac: Tachycardia, regular rhythm, S1S2 intact, no murmurs rubs or gallops GI: abdomen soft, non-tender, non-distended; no palpable mass or hepatosplenomegaly : Ecchymosis to right labia majora, no crepitus induration erythema warmth or signs of cellulitis or abscess, no vaginal discharge does have similar ecchymosis to mons pubis Skin: See Neuro: AAOx3, normal speech, moving all extremities Extremities: Minimal edema in bilateral lower extremities nonpitting Psych: Appropriate mood and affect Course Vital Signs Vital signs: Vital Signs Temperature 36.7 C 06/24/22 20:34 Pulse 110 H 06/24/22 20:34 Respiratory Rate 18 06/24/22 20:34 Blood Pressure 146/69 H 06/24/22 20:34 Pulse Oximetry 99 06/24/22 20:34 Temperature 36.7 C 06/24/22 20:34 Temperature Source Skin 06/24/22 20:34 Pulse 110 H 06/24/22 20:34 Respiratory Rate 18 06/24/22 20:34 Respiratory Effort Non-Labored 06/24/22 20:43 Blood Pressure 146/69 H 06/24/22 20:34 Blood Pressure Position Supine 06/24/22 20:34 Pulse Oximetry 99 06/24/22 20:34 Oxygen Delivery Method Room Air 06/24/22 20:34 Oxygen Flow Rate 0 06/24/22 20:34 Pain Level 10 06/24/22 20:43 Comment 06/24/22 20:34
[2022-06-24] MEDS: hydrALAZINE 20 MG/ML VIAL 5 MG IVP (21:27)
[2022-06-24] MEDS: Ketorolac 15 MG/ML VIAL IVP (21:27)
[2022-06-24 21:34] LABS: Abs Immature Grans 0.03 10^3/uL (0.0-0.06); Absolute Basophil Count 0.03 10^3/uL (0.0-0.2); Absolute Eosinophil Count 0.08 10^3/uL (0.0-0.7); Absolute Lymphocyte Count 1.79 10^3/uL (1.2-3.4); Absolute Monocyte Count 0.79 10^3/uL (0.1-0.8); Absolute Neutrophil Count 5.05 10^3/uL (1.2-6.7); Basophils % 0.4; Immature Grans % 0.4; MCH 31.5 pg (27.0-33.0); MCHC 33.7 % (32.0-36.0); MPV 10.2 fL (8.0-11.0); Monocytes % 10.2; Platelet Count 264 10^3/uL (130-400); RBC 2.22 10^6/uL (3.93-5.22); RDW 14.1 % (11.7-14.6); WBC 7.77 10^3/uL (4.4-10.8)
[2022-06-24 21:40] LABS: HCT 20.8 % (36.0-46.0); MCV 94 fL (80-95)
[2022-06-24 21:53] LABS: ALT 27 U/L (14-59); AST 31 U/L (15-37); Albumin 1.9 g/dL (3.4-5.0); Alkaline Phosphatase 88 U/L (46-116); Anion Gap 8.5 mmol/L (3-11); BUN 7 mg/dL (7-18); Bilirubin, Total 0.3 mg/dL (0.2-1.0); CO2 26.5 mmol/L (21.0-32.0); CREATININE 0.7 mg/dL (0.55-1.02); Calcium 8.5 mg/dL (8.5-10.1); Chloride 109 mmol/L (98-107); Glucose 96 mg/dL (74-106); LDH 233 U/L (81-234); Magnesium 1.6 mg/dL (1.8-2.4); Potassium 4.8 mmol/L (3.5-5.1); Sodium 144 mmol/L (136-145); Total Protein 5.5 g/dL (6.4-8.2)
[2022-06-24 21:54] LABS: Bilirubin Negative (Negative); Blood Negative (Negative); Clarity Clear (Clear); Glucose Negative (Negative); Ketones Negative (Negative); Leukocyte Esterase Negative (Negative); Nitrite Negative (Negative); Specific Gravity 1.015 (1.005-1.025); Urobilinogen 0.2 EU/dL (Up TO 0.2)
[2022-06-24 21:54] LABS: INR 0.9 (0.9-1.1); PTT Activated 21.3 sec (21.0-27.5); Prothrombin Time 8.9 sec (9.3-11.0)
[2022-06-24 22:06] LABS: COMMENT (LAB VIEW ONLY) 13.83 mg/dL; PROTEIN < 6.0 mg/dL
--- NOTE | 2022-06-25 03:54 | NUR.NOTE ---
Referral faxed to [facility] to f/u 06/27 or 06/28 for anemia. Nursing Note:
== END 2022-06-24 22:42 | disposition home or self-care (01) ==
PROVIDERS: Emergency Provider Emergency Medicine; PCP Nurse Practitioner Family
DX: I10 Essential (primary) hypertension (principal); D64.9 Anemia, unspecified; S30.23XA Contusion of vagina and vulva, initial encounter; R60.0 Localized edema; F41.9 Anxiety disorder, unspecified; R00.0 Tachycardia, unspecified; F17.290 Nicotine dependence, other tobacco product, uncomplicated; X58.XXXA Exposure to other specified factors, initial encounter
CPT/HCPCS: 80053; 86850; 86900; 86901; 96374; 96375; 99284; 81003; 82565; 83615; 83735; 84156; 84550; 85025; 85610; 85730; J0360; J1885

== ENCOUNTER 2022-07-01 18:17 | Outpatient (REF) | payer MEDICARE, MEDICAID, SELFPAY | END 2022-07-01 18:18 | disposition home or self-care (01) | LOC: LBN 18:17 | PROVIDERS: PCP Nurse Practitioner Family; Visit Provider Obstetrics & Gynecology | DX: R30.0 Dysuria (principal) | CPT/HCPCS: 87086 ==

== ENCOUNTER 2022-10-31 15:05 | Outpatient (CLI) | payer MEDICARE, MEDICAID, SELFPAY ==
--- NOTE | 2022-10-31 14:00 | DI.RAD_ITS ---
Exam(s) XR LUMBAR SPINE AP, LAT EXAM: XR LUMBAR SPINE AP, LAT CLINICAL HISTORY: low back pain and numbness. TECHNIQUE: 2D digital imaging was performed. Three views. COMPARISON: CR LUMBAR SPINE COMPLETE from 09/18/2015 FINDINGS: BONES: No fracture or destructive lesion. Vertebral body heights are maintained. Minimal facet hyper trophy identified at L5-S1.. DISKS: Intervertebral disc spaces are maintained. Small endplate osteophytes at L3-4. ALIGNMENT: Lumbar spinal alignment is within normal limits. SOFT TISSUE: Normal. IMPRESSION: Minimal degenerative changes. DATA REPOSITORY: RADIATION DOSE DELIVERED:
--- NOTE | 2022-10-31 14:00 | DI.RAD_ITS ---
Exam(s) XR HIP PELVIS ADULT BL EXAM: XR HIP PELVIS ADULT BL CLINICAL HISTORY: eval bilateral hip and pubic symphysis pain. TECHNIQUE: 2D digital imaging was performed. Three views. COMPARISON: CR from 12/13/2006 CR PELVIS+LATERAL HIP from 04/24/2007 CR from 06/01/2007 CR XR hip RT complete AP pelvis from 09/10/2018 FINDINGS: BONES: No acute fracture is present. No bony destructive lesion is seen. Stable appearance of left hi p prosthesis. No surrounding abnormal lucencies. JOINTS: No dislocation present. Right hip joint space is maintained. Minimal periarticular spurring. There is mild widening of the pubic symphysis which appears unchanged from prior exams. No bony er osions. SI joints unremarkable.. SOFT TISSUE: Normal. IMPRESSION: Stable appearance of left hip prosthesis. Minimal degenerative changes of the right hip. DATA REPOSITORY: RADIATION DOSE DELIVERED:
== END 2022-10-31 15:06 | disposition home or self-care (01) ==
LOC: DIORS 15:06
PROVIDERS: PCP Nurse Practitioner Family; Referring Provider Nurse Practitioner Family; Visit Provider Student in an Organized Health Care Education/Training Program
DX: R20.0 Anesthesia of skin; M16.11 Unilateral primary osteoarthritis, right hip; M16.12 Unilateral primary osteoarthritis, left hip; M47.816 Spondylosis without myelopathy or radiculopathy, lumbar region
CPT/HCPCS: 73521; 99215; 72100

== ENCOUNTER 2022-11-25 00:41 | Outpatient (CLI) | payer MEDICARE, MEDICAID, SELFPAY ==
--- NOTE | 2022-11-25 07:30 | DI.US_ITS ---
Exam(s) US ABDOMEN PELVIS EXAM: US ABDOMEN PELVIS CLINICAL HISTORY: generalized abdominal pain, pelvic pain, r10.84,r10.2 TECHNIQUE: Ultrasound abdomen performed using standard protocol. Transabdominal pelvic ultrasound w as performed. The patient elected to forego the transvaginal portion of the examination. COMPARISON: No exams were available for comparison FINDINGS: ABDOMEN ABDOMINAL AORTA AND IVC: Visualized portions normal caliber. PANCREAS: Normal where visualized. LIVER: Normal. Hepatopedal flow in the Portal Vein. The liver measures 14 cm long. GALLBLADDER:No evidence of cholelithiasis. No evidence of wall thickening. No pericholecystic fluid i dentified. BILIARY SYSTEM: Common bile duct measures < 7 mm. No intrahepatic biliary ductal dilation. NGUYEN'S SIGN: Negative. KIDNEYS: Kidneys are symmetric in size. No evidence of renal calculi. No evidence of hydronephrosis. No renal mass or cyst identified. SPLEEN: Not enlarged. ASCITES: None seen. PELVIC: UTERUS: Position: Anteverted. Size: 6.7 long by 3.4 AP by 5.8 transverse cm Endometrium: 1.1 cm. Normal for patient's menstrual status. Myometrium: Unremarkable. Cervix: Unremarkable. OVARIES: Right: 2.4 x 1.4 x 1.4 cm Cyst or mass: No suspicious cystic or solid masses are seen. Left: 2.1 x 1.6 x 1.4 cm Cyst or mass: No suspicious cystic or solid masses are seen. DOPPLER: Color: Symmetric and uniform flow to both ovaries. No hyperemia. CUL-DE-SAC: Free fluid: None. IMPRESSION: Normal sonographic appearance of the upper abdomen and pelvis. DATA REPOSITORY:
== END 2022-11-25 01:01 ==
LOC: DI 00:42
PROVIDERS: PCP Nurse Practitioner Family; Visit Provider Nurse Practitioner Family
DX: R10.2 Pelvic and perineal pain (principal); R10.84 Generalized abdominal pain
CPT/HCPCS: 76700; 76856

== ENCOUNTER 2022-12-12 12:22 | Emergency (ER) | payer MEDICARE, MEDICAID, SELFPAY ==
[2022-12-12 12:36] VITALS: BP 147/89; PULSE 107; RESP 18; TEMP 36.8; O2SAT 99
[2022-12-12 12:54] VITALS: RESP 14
[2022-12-12 12:57] VITALS: BP 140/80; PULSE 90; RESP 14; O2SAT 99
--- NOTE | 2022-12-12 12:57 | ED.GENADUL_ITS ---
Discharge Plan Disposition Patient Disposition: Home Condition: Stable Discharge Details Clinical Impression: Paronychia of great toe of right foot Primary Care Provider: Harley Miller ED Provider: Randy Tay Home Meds and New Rx's Prescriptions: New cephalexin 500 mg capsule 500 mg PO TID Qty: 15 0RF Continued folic acid 400 mcg tablet 0.4 mg PO DAILY Qty: 90 0RF divalproex [Depakote] 125 mg tablet,delayed release (DR/EC) 125 mg PO BID Qty: 180 3RF levonorgestrel-ethinyl estrad 0.1-20 mg-mcg tablet 1 tab PO DAILY Qty: 84 4RF ondansetron 4 mg tablet,disintegrating 4 mg PO Q8H PRN (Reason: nausea and vomiting) Qty: 30 4RF albuterol sulfate [ProAir HFA] 90 mcg/actuation HFA aerosol inhaler 2 puff IH Q6H PRN (Reason: shortness of breath) Qty: 18 4RF lidocaine 5 % adhesive patch,medicated 2 patch topical DAILY Qty: 15 3RF Rx Instructions: leave on most painful area for up to 12 hrs epinephrine [EpiPen] 0.3 MG/0.3 ML auto-injector 1 pen IM ONCE Label Comments: PrePlus 27 mg iron- 1 mg tablet 1 tab PO DAILY Qty: 90 3RF Rx Instructions: give with food (meal/snack) propranolol 10 mg tablet 10 mg PO BID Qty: 60 3RF baclofen 10 mg tablet 10 mg PO QID PRN (Reason: spasms) Qty: 120 3RF omeprazole 20 mg capsule,delayed release(DR/EC) 20 mg PO BID PRN (Reason: gerd) Qty: 60 2RF ibuprofen 600 mg tablet 600 mg PO Q6H PRN (Reason: pain) Qty: 60 0RF methylphenidate HCl 20 mg tablet 20 mg PO BID MDD 40mg Qty: 56 0RF hydromorphone 2 mg tablet 2 mg PO Q6H MDD 8mg PRN (Reason: pain) Qty: 112 0RF Discharge Instructions Instructions: Paronychia (ED) Additional Instructions: Please take full course of antibiotic as prescribed. Please perform warm soaks 3 times a day as discussed to encourage drainage. Please follow-up with podiatry if symptoms not improving after 48 hours of treatment. Return to the emergency department immediately for any worsening or new concern ing symptoms. Referrals: Nisha Blue DPM [[facility] STAFF PHYSICIAN] - Medical Decision Making 37-year-old female here with right great toe paronychia. Area seems to be draining. Plan for warm soaks and will initiate treatment with Keflex. I will have her follow-up with podiatry if not improving over the next couple days. [facility] customary discharge instructions otherwise reviewed with the patient. HPI General Mode of arrival: ambulatory . Date/Time Provider Initiated Documentation: 12/12/22 12:49 . Limitations to Documentation: no limitations . Information obtained by: patient . HPI Narrative: 37-year-old female here with right great toe pain over the past 1 week. She notes area of inflammation lateral great toenail with purulent discharge. No associated significant swelling of the foot. No associated fever. Related Data Home Medications Medication Instructions Recorded Confirmed epinephrine 0.3 mg/0.3 mL 1 pen IM ONCE 01/20/13 12/12/22 injection, auto-injector (EpiPen) albuterol sulfate 90 mcg/actuation 2 puff inhalation Q6H PRN 04/23/20 12/12/22 aerosol inhaler (ProAir HFA) shortness of breath #18 grams ondansetron 4 mg disintegrating 4 mg PO Q8H PRN nausea and 04/23/20 12/12/22 tablet vomiting #30 tabs folic acid 400 mcg tablet 0.4 mg PO DAILY #90 tabs 11/25/21 12/12/22 vitamin with calcium 1 tab PO DAILY #90 tabs 02/22/22 12/12/22 no.72-iron 27 mg-folic acid 1 mg tablet (PrePlus) lidocaine 5 % topical patch 2 patch topical DAILY #15 ea 06/27/22 12/12/22 divalproex 125 mg tablet,delayed 125 mg PO BID #180 tabs 08/10/22 12/12/22 release (Depakote) levonorgestrel-ethinyl estradiol 1 tab PO DAILY #84 tabs 09/07/22 12/12/22 0.1 mg-20 mcg tablet propranolol 10 mg tablet 10 mg PO BID #60 tabs 09/10/22 12/12/22 baclofen 10 mg tablet 10 mg PO QID PRN spasms #120 tabs 09/28/22 12/12/22 ibuprofen 600 mg tablet 600 mg PO Q6H PRN pain #60 tabs 11/09/22 12/12/22 omeprazole 20 mg capsule,delayed 20 mg PO BID PRN gerd #60 caps 11/09/22 12/12/22 release methylphenidate HCl 20 mg tablet 20 mg PO BID #56 tabs 11/16/22 12/12/22 hydromorphone 2 mg tablet 2 mg PO Q6H PRN pain #112 tabs 11/23/22 12/12/22 cephalexin 500 mg capsule 500 mg PO TID #15 caps 12/12/22 Previous Rx's Medication Instructions Recorded albuterol sulfate 90 mcg/actuation 2 puff inhalation Q6H PRN 04/23/20 aerosol inhaler (ProAir HFA) shortness of breath #18 grams ondansetron 4 mg disintegrating 4 mg PO Q8H PRN nausea and 04/23/20 tablet vomiting #30 tabs folic acid 400 mcg tablet 0.4 mg PO DAILY #90 tabs 11/25/21 vitamin with calcium 1 tab PO DAILY #90 tabs 02/22/22 no.72-iron 27 mg-folic acid 1 mg tablet (PrePlus) lidocaine 5 % topical patch 2 patch topical DAILY #15 ea 06/27/22 divalproex 125 mg tablet,delayed 125 mg PO BID #180 tabs 08/10/22 release (Depakote) levonorgestrel-ethinyl estradiol 1 tab PO DAILY #84 tabs 09/07/22 0.1 mg-20 mcg tablet propranolol 10 mg tablet 10 mg PO BID #60 tabs 09/10/22 baclofen 10 mg tablet 10 mg PO QID PRN spasms #120 tabs 09/28/22 ibuprofen 600 mg tablet 600 mg PO Q6H PRN pain #60 tabs 11/09/22 omeprazole 20 mg capsule,delayed 20 mg PO BID PRN gerd #60 caps 11/09/22 release methylphenidate HCl 20 mg tablet 20 mg PO BID #56 tabs 11/16/22 hydromorphone 2 mg tablet 2 mg PO Q6H PRN pain #112 tabs 11/23/22 cephalexin 500 mg capsule 500 mg PO TID #15 caps 12/12/22 Allergies Allergy/AdvReac Type Severity Reaction Status Date / Time venom-honey bee Allergy Severe HIVES Verified 12/12/22 12:39 aripiprazole [From Abilify] AdvReac Intermediate Nausea Verified 12/12/22 12:39 acetaminophen AdvReac Unknown VOMITING; Verified 12/12/22 12:39 WEIGHT LOSS meloxicam AdvReac Unknown NAUSEA/VOMI Verified 12/12/22 12:39 TING hydrocodone AdvReac NAUSEA/VOMI Verified 12/12/22 12:39 TING oxycodone AdvReac VOMITING Verified 12/12/22 12:39 General Stated Complaint: GenMedical JONN: 3 Review of Systems Constitutional Constitutional: Reports as per HPI Integumentary/Breasts Skin/Breast: Reports as per HPI PFSH All Active Problems Attention deficit hyperactivity disorder (ADHD), combined type (Acute 12/27/16) Chronic pain syndrome (Chronic 10/18/12) 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) Idiopathic scoliosis (Chronic) Peripheral neuropathy (Acute) Anxiety disorder (Acute) Sinus tachycardia (Acute) takes propanalol 10 mg twice daily Neck pain (Acute) Bilateral hip pain (Acute) Bilateral leg numbness (Acute) Generalized abdominal pain (Acute) Arthritis of right hip (Acute) Lumbar spondylosis (Acute) Paronychia of great toe of right foot (Acute) Medical History Anemia Gastroesophageal reflux disease Microcephalus (06/16/11) possible FAS Moderate single current episode of major depressive disorder (02/16/16) Short stature disorder possible FAS Smoker Surgical History Arthroscopy (~2007) right hip History of section Jun 2022 - [place] [facility] [place] History of total hip arthroplasty S/P carpal tunnel release Status post arthroscopy of hip Total replacement of hip (~2006) left Family History Father Stroke Hypertension Diabetes Self COPD (chronic obstructive pulmonary disease) Per Dr. Patterson Paternal Grandfather Heart disease congenital heart defect Social History Smoking/Tobacco Use Status: Current every day Tobacco Type: e-cigarettes Smoking risk assessment performed?: Yes Alcohol Intake: never Drug use: Occasionally Substance use type: marijuana Household members: other Details: 2 Do you feel safe at home: Yes Do you feel safe in your relationship?: Yes Additional Social history: bipolar disorder History History 1 Para 1 Hx # Term Pregnancies 0 Multiple births 0 Hx # Pregnancies 0 Ectopic pregnancies 0 AB induced 0 Hx Number of Living Children 0 AB spontaneous 0 Past Pregnancies Del. Date GA/Weeks # Preg Succ Route Wgt Sex Labor Lgth Anesth esia Location Prov Complic 06/21/22 36 No Yes Female [facility] [place] Extrem Right lower extremity: foot Details: normal capillary refill, tenderness (rt great toe lateral nailbed with erythema, mild swelling and small discharge) and vascular exam Details: dorsalis pedis pulse present Course Vital Signs Vital signs: Vital Signs Temperature 36.8 C 12/12/22 12:36 Pulse 107 H 12/12/22 12:36 Respiratory Rate 18 12/12/22 12:36 Blood Pressure 147/89 H 12/12/22 12:36 Pulse Oximetry 99 12/12/22 12:36 Temperature 36.8 C 12/12/22 12:36 Pulse 107 H 12/12/22 12:36 Respiratory Rate 14 12/12/22 12:54 Respiratory Effort 12/12/22 12:54 Respiratory Depth Normal 12/12/22 12:54 Respiratory Pattern Normal 12/12/22 12:54 Blood Pressure 147/89 H 12/12/22 12:36 Pulse Oximetry 99 12/12/22 12:36 Oxygen Delivery Method Room Air 12/12/22 12:36 Oxygen Flow Rate 0 12/12/22 12:36
== END 2022-12-12 13:07 | disposition home or self-care (01) ==
LOC: ER 13:24
PROVIDERS: Emergency Provider Student in an Organized Health Care Education/Training Program; PCP Nurse Practitioner Family
DX: L03.031 Cellulitis of right toe (principal)
CPT/HCPCS: 99283

== ENCOUNTER 2022-12-15 17:56 | Emergency (ER) | payer MEDICARE, MEDICAID, SELFPAY ==
[2022-12-15 18:01] VITALS: BP 123/88; PULSE 94; RESP 18; TEMP 37; O2SAT 100
--- NOTE | 2022-12-15 18:32 | ED.GENADUL_ITS ---
Discharge Plan Disposition Patient Disposition: Home Condition: Stable Discharge Details Clinical Impression: Paronychia of great toe of right foot Primary Care Provider: Harley Miller ED Provider: Poppy Pool Home Meds and New Rx's Prescriptions: Continued folic acid 400 mcg tablet 0.4 mg PO DAILY Qty: 90 0RF divalproex [Depakote] 125 mg tablet,delayed release (DR/EC) 125 mg PO BID Qty: 180 3RF levonorgestrel-ethinyl estrad 0.1-20 mg-mcg tablet 1 tab PO DAILY Qty: 84 4RF ondansetron 4 mg tablet,disintegrating 4 mg PO Q8H PRN (Reason: nausea and vomiting) Qty: 30 4RF albuterol sulfate [ProAir HFA] 90 mcg/actuation HFA aerosol inhaler 2 puff IH Q6H PRN (Reason: shortness of breath) Qty: 18 4RF lidocaine 5 % adhesive patch,medicated 2 patch topical DAILY Qty: 15 3RF Rx Instructions: leave on most painful area for up to 12 hrs epinephrine [EpiPen] 0.3 MG/0.3 ML auto-injector 1 pen IM ONCE Label Comments: PrePlus 27 mg iron- 1 mg tablet 1 tab PO DAILY Qty: 90 3RF Rx Instructions: give with food (meal/snack) propranolol 10 mg tablet 10 mg PO BID Qty: 60 3RF baclofen 10 mg tablet 10 mg PO QID PRN (Reason: spasms) Qty: 120 3RF omeprazole 20 mg capsule,delayed release(DR/EC) 20 mg PO BID PRN (Reason: gerd) Qty: 60 2RF ibuprofen 600 mg tablet 600 mg PO Q6H PRN (Reason: pain) Qty: 60 0RF hydromorphone 2 mg tablet 2 mg PO Q6H MDD 8mg PRN (Reason: pain) Qty: 112 0RF methylphenidate HCl 20 mg tablet 20 mg PO BID MDD 40mg Qty: 56 0RF cephalexin 500 mg capsule 500 mg PO TID Qty: 15 0RF Discharge Instructions Instructions: Paronychia (ED) Additional Instructions: Keep your appointment with podiatry on Monday as previously scheduled. Use the antibiotic ointment twice daily as discussed. Continue taking the previously prescribed antibiotics. Keep clean and dry. Do not try to express any fluid. Referrals: Harley Miller, DISPENSER OPERATOR [Primary Care Provider] - Medical Decision Making 37-year-old female presents to the ER with the chief complaint of worsening right great toe infection. Patient was seen in the ER approximately 4 days ago and prescribed cephalexin which she has been taking as prescribed. She also reports that she has been doing diluted bleach soaks and attempting to express discharge which she has been unsuccessful at doing. She does report increased erythema and pain. At this time nail removal is not indicated, mupirocin antibiotic ointment ordered, will add 5 days of Augmentin wrap toe given a postop shoe. I did instruct her to continue taking the cephalexin and keep her appointment with podiatry on Monday. Instructed patient to stop trying to express fluid which she reports has been squeezing it. She verbalized understanding. Patient left the department without receiving her discharge papers. Patient was dressed given mupirocin ointment here in the department and a postop shoe. This text was generated using [employer] system, please disregard any oddities of phrase or misspellings. Medical Records Medical records reviewed: Yes I reviewed the patient's medical records. HPI General Mode of arrival: ambulatory . Date/Time Provider Initiated Documentation: 12/15/22 18:17 . Limitations to Documentation: no limitations . Information obtained by: patient, RN notes reviewed and old records reviewed . HPI Narrative: 37-year-old female presents to the ER with the chief complaint of worsening right great toe infection. Patient was seen in the ER approximately 4 days ago and prescribed cephalexin which she has been taking as prescribed. She also reports that she has been doing diluted bleach soaks and attempting to express discharge which she has been unsuccessful at doing. She does report increased erythema and pain. Past medical history includes ADHD scoliosis, arthritis, GERD anemia, she is a smoker. Related Data Home Medications Medication Instructions Recorded Confirmed epinephrine 0.3 mg/0.3 mL 1 pen IM ONCE 01/20/13 12/15/22 injection, auto-injector (EpiPen) albuterol sulfate 90 mcg/actuation 2 puff inhalation Q6H PRN 04/23/20 12/15/22 aerosol inhaler (ProAir HFA) shortness of breath #18 grams ondansetron 4 mg disintegrating 4 mg PO Q8H PRN nausea and 04/23/20 12/15/22 tablet vomiting #30 tabs folic acid 400 mcg tablet 0.4 mg PO DAILY #90 tabs 11/25/21 12/15/22 vitamin with calcium 1 tab PO DAILY #90 tabs 02/22/22 12/15/22 no.72-iron 27 mg-folic acid 1 mg tablet (PrePlus) lidocaine 5 % topical patch 2 patch topical DAILY #15 ea 06/27/22 12/15/22 divalproex 125 mg tablet,delayed 125 mg PO BID #180 tabs 08/10/22 12/15/22 release (Depakote) levonorgestrel-ethinyl estradiol 1 tab PO DAILY #84 tabs 09/07/22 12/15/22 0.1 mg-20 mcg tablet propranolol 10 mg tablet 10 mg PO BID #60 tabs 09/10/22 12/15/22 baclofen 10 mg tablet 10 mg PO QID PRN spasms #120 tabs 09/28/22 12/15/22 ibuprofen 600 mg tablet 600 mg PO Q6H PRN pain #60 tabs 11/09/22 12/15/22 omeprazole 20 mg capsule,delayed 20 mg PO BID PRN gerd #60 caps 11/09/22 12/15/22 release hydromorphone 2 mg tablet 2 mg PO Q6H PRN pain #112 tabs 11/23/22 12/15/22 cephalexin 500 mg capsule 500 mg PO TID #15 caps 12/12/22 12/15/22 methylphenidate HCl 20 mg tablet 20 mg PO BID #56 tabs 12/14/22 12/15/22 Previous Rx's Medication Instructions Recorded albuterol sulfate 90 mcg/actuation 2 puff inhalation Q6H PRN 04/23/20 aerosol inhaler (ProAir HFA) shortness of breath #18 grams ondansetron 4 mg disintegrating 4 mg PO Q8H PRN nausea and 04/23/20 tablet vomiting #30 tabs folic acid 400 mcg tablet 0.4 mg PO DAILY #90 tabs 11/25/21 vitamin with calcium 1 tab PO DAILY #90 tabs 02/22/22 no.72-iron 27 mg-folic acid 1 mg tablet (PrePlus) lidocaine 5 % topical patch 2 patch topical DAILY #15 ea 06/27/22 divalproex 125 mg tablet,delayed 125 mg PO BID #180 tabs 08/10/22 release (Depakote) levonorgestrel-ethinyl estradiol 1 tab PO DAILY #84 tabs 09/07/22 0.1 mg-20 mcg tablet propranolol 10 mg tablet 10 mg PO BID #60 tabs 09/10/22 baclofen 10 mg tablet 10 mg PO QID PRN spasms #120 tabs 09/28/22 ibuprofen 600 mg tablet 600 mg PO Q6H PRN pain #60 tabs 11/09/22 omeprazole 20 mg capsule,delayed 20 mg PO BID PRN gerd #60 caps 11/09/22 release hydromorphone 2 mg tablet 2 mg PO Q6H PRN pain #112 tabs 11/23/22 cephalexin 500 mg capsule 500 mg PO TID #15 caps 12/12/22 methylphenidate HCl 20 mg tablet 20 mg PO BID #56 tabs 12/14/22 Allergies Allergy/AdvReac Type Severity Reaction Status Date / Time venom-honey bee Allergy Severe HIVES Verified 12/15/22 18:51 aripiprazole [From [facility]] AdvReac Intermediate Nausea Verified 12/15/22 18:51 acetaminophen AdvReac Unknown VOMITING; Verified 12/15/22 18:51 WEIGHT LOSS meloxicam AdvReac Unknown NAUSEA/VOMI Verified 12/15/22 18:51 TING hydrocodone AdvReac NAUSEA/VOMI Verified 12/15/22 18:51 TING oxycodone AdvReac VOMITING Verified 12/15/22 18:51 General Stated Complaint: Orthopedic JONN: 4 Review of Systems All systems reviewed & are unremarkable except as noted in HPI and below Constitutional Constitutional: Denies chills and Denies fever(s) Integumentary/Breasts Skin/Breast: Reports as per HPI, Reports erythema, Reports skin pain and Reports skin swelling PFSH All Active Problems (Updated 12/15/22 @ 19:15 by Poppy Pool NP) Attention deficit hyperactivity disorder (ADHD), combined type (Acute 12/27/16) Chronic pain syndrome (Chronic 10/18/12) 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) Idiopathic scoliosis (Chronic) Peripheral neuropathy (Acute) Anxiety disorder (Acute) Sinus tachycardia (Acute) takes propanalol 10 mg twice daily Neck pain (Acute) Bilateral hip pain (Acute) Bilateral leg numbness (Acute) Generalized abdominal pain (Acute) Arthritis of right hip (Acute) Lumbar spondylosis (Acute) Paronychia of great toe of right foot (Acute) Medical History Anemia Gastroesophageal reflux disease Microcephalus (06/16/11) possible FAS Moderate single current episode of major depressive disorder (02/16/16) Short stature disorder possible FAS Smoker Surgical History Arthroscopy (~2007) right hip History of section Jun 2022 - emergent at [facility] [place] History of total hip arthroplasty S/P carpal tunnel release Status post arthroscopy of hip Total replacement of hip (~2006) left Family History Father Stroke Hypertension Diabetes Self COPD (chronic obstructive pulmonary disease) Per Dr. Patterson Paternal Grandfather Heart disease congenital heart defect Social History Smoking/Tobacco Use Status: Current every day Tobacco Type: e-cigarettes Smoking risk assessment performed?: Yes Alcohol Intake: never Drug use: Occasionally Substance use type: marijuana Household members: other Details: 2 Do you feel safe at home: Yes Do you feel safe in your relationship?: Yes Additional Social history: bipolar disorder History History 1 Para 1 Hx # Term Pregnancies 0 Multiple births 0 Hx # Pregnancies 0 Ectopic pregnancies 0 AB induced 0 Hx Number of Living Children 0 AB spontaneous 0 Past Pregnancies Del. Date GA/Weeks # Preg Succ Route Wgt Sex Labor Lgth Anesth esia Location Prov Complic 06/21/22 36 No Yes Female [facility] [place] Exam Extrem Ankle/foot/toe images: 1. Erythema, mild swelling no red streaks noted. Course Vital Signs Vital signs: Vital Signs Temperature 37.0 C 12/15/22 18:01 Pulse 94 H 12/15/22 18:01 Respiratory Rate 18 12/15/22 18:01 Blood Pressure 123/88 12/15/22 18:01 Pulse Oximetry 100 12/15/22 18:01 Temperature 37.0 C 12/15/22 18:01 Temperature Source Tympanic 12/15/22 18:01 Pulse 94 H 12/15/22 18:01 Respiratory Rate 18 12/15/22 18:01 Respiratory Effort Non-Labored 12/15/22 18:04 Blood Pressure 123/88 12/15/22 18:01 Blood Pressure Position Sitting 12/15/22 18:01 Pulse Oximetry 100 12/15/22 18:01 Oxygen Delivery Method Room Air 12/15/22 18:01 Oxygen Flow Rate 0 12/15/22 18:01 Pain Level 10 12/15/22 18:01
[2022-12-15] MEDS: Mupirocin 2% Oint. 22 GM TUBE TP (18:48)
[2022-12-15] MEDS: Amoxicillin 875/Clav. 125 TAB PO (18:48)
== END 2022-12-15 22:01 | disposition home or self-care (01) ==
PROVIDERS: Emergency Provider Registered Nurse Emergency; PCP Nurse Practitioner Family
DX: L03.031 Cellulitis of right toe (principal)
CPT/HCPCS: 99283

== ENCOUNTER 2023-01-10 01:39 | Outpatient (CLI) | payer MEDICARE, MEDICAID, SELFPAY ==
--- NOTE | 2023-01-10 07:45 | DI.RAD_ITS ---
Exam(s) XR LUMBAR SPINE COMP W FLEX/EX EXAM: XR LUMBAR SPINE COMP W FLEX/EX CLINICAL HISTORY: EVALUATE FOR SPONDYLOLISTHESIS,scoliosis,m47.816,m41.20. TECHNIQUE: 2D digital imaging was performed. COMPARISON: No exams were available for comparison FINDINGS: Five views: There is no evidence of fracture nor disc space narrowing. However, there is mild anterior osseous l ipping at L3-4 which may indicate an element of degenerative disc disease despite preserved disc heig ht at this level. No pars defects. No listhesis. No scoliosis. Facet joints unremarkable with the exception of L5-S1 where there is slight asymmetry in the appearance the facet joints. There is mil d degenerative change in the right facet joint at this level.. SI joints appear unremarkable. There is a left hip prosthesis. IMPRESSION: Mild lumbar spine findings as above. Left hip prosthesis noted. DATA REPOSITORY: RADIATION DOSE DELIVERED:
--- NOTE | 2023-01-10 07:45 | DI.RAD_ITS ---
Exam(s) XR SCOLIOSIS T-L SPINE EXAM: XR SCOLIOSIS T-L SPINE CLINICAL HISTORY: evaluate for scolio change; new pain,m41.20. TECHNIQUE: 2D digital imaging was performed. COMPARISON: No exams were available for comparison FINDINGS: Five views: There is no evidence of significant scoliosis in the thoracic and lumbar spinal columns. There is pa rtial sacralization of the L5 segment. No cervical ribs. No evidence of developmental anomalies of the vertebral bodies. No significant disc space narrowing. No abnormal widening paraspinal lines. Left hip prosthesis is noted. Right hip appears unremarkable. SI joints appear unremarkable. Heart size is normal. Mediastinum is not widened. Lungs are clear. No pleural effusions. No osseo us lesions. IMPRESSION: No scoliosis evident. Left hip prosthesis noted but only partially included in the field of view. DATA REPOSITORY: RADIATION DOSE DELIVERED:
== END 2023-01-10 01:59 ==
LOC: DI 01:39
PROVIDERS: PCP Student in an Organized Health Care Education/Training Program; Visit Provider Student in an Organized Health Care Education/Training Program
DX: M41.20 Other idiopathic scoliosis, site unspecified (principal); G89.4 Chronic pain syndrome; M47.816 Spondylosis without myelopathy or radiculopathy, lumbar region; Z96.642 Presence of left artificial hip joint
CPT/HCPCS: 72081; 72114

== ENCOUNTER 2023-02-23 16:24 | Emergency (ER) | payer MEDICARE, MEDICAID, SELFPAY ==
--- NOTE | 2023-02-23 16:30 | RT.EKG_ITS ---
APPROVED REPORT Exam: Resting ECG Reason for Exam: dizziness Patient Location: E HR:83 bpm ECG Measurements Heart Rate 83 AXIS DC 177 P 72 QRSd 101 QRS -23 QT 340 T 52 QTc 400 Conclusion Sinus rhythm...normal P axis, V-rate 60- 99. Sinus. Normal axis. No STEMI. I have reviewed and interpreted ECG and agree with software generated interpretation.
[2023-02-23 16:35] VITALS: BP 155/90; PULSE 103; RESP 16; TEMP 36.1; O2SAT 100
[2023-02-23 16:49] VITALS: RESP 15
--- NOTE | 2023-02-23 17:36 | ED.GENADUL_ITS ---
Discharge Plan Disposition Patient Disposition: Against Medical Advice Discharge Details Clinical Impression: Light-headed feeling Primary Care Provider: Shyanne Koch ED Provider: Matilda Shelton Home Meds and New Rx's Prescriptions: Continued divalproex [Depakote] 125 mg tablet,delayed release (DR/EC) 125 mg PO BID Qty: 180 3RF levonorgestrel-ethinyl estrad 0.1-20 mg-mcg tablet 1 tab PO DAILY Qty: 84 4RF triamcinolone acetonide 0.1 % ointment 1 applic topical BID Qty: 15 1RF Rx Instructions: Trial for itching x 1 week (do not continue daily; ok for 3 days on/3 days off) ondansetron 4 mg tablet,disintegrating 4 mg PO Q8H PRN (Reason: nausea and vomiting) Qty: 30 4RF albuterol sulfate [ProAir HFA] 90 mcg/actuation HFA aerosol inhaler 2 puff IH Q6H PRN (Reason: shortness of breath) Qty: 18 4RF hydromorphone 2 mg tablet 2 mg PO Q6H MDD 8mg PRN (Reason: pain) Qty: 112 0RF methylphenidate HCl 20 mg tablet 20 mg PO BID MDD 40mg Qty: 56 0RF baclofen 10 mg tablet 10 mg PO QID PRN MDD 40mg PRN (Reason: muscle spasms) Qty: 100 1RF Rx Instructions: Refilling @ QID, PRN (so, not scheduled) epinephrine [EpiPen] 0.3 MG/0.3 ML auto-injector 1 pen IM ONCE Patient Comments: PrePlus 27 mg iron- 1 mg tablet 1 tab PO DAILY Qty: 90 3RF Rx Instructions: give with food (meal/snack) propranolol 10 mg tablet 10 mg PO BID Qty: 60 3RF ibuprofen 600 mg tablet 600 mg PO Q6H PRN (Reason: pain) Qty: 60 0RF omeprazole 20 mg capsule,delayed release(DR/EC) See Rx Instructions .ROUTE .COMPLEX Qty: 60 0RF Dose Instruction: TAKE ONE CAPSULE BY MOUTH TWICE A DAY NEEDED FOR GERD Rx Instructions: TAKE ONE CAPSULE BY MOUTH TWICE A DAY NEEDED FOR GERD Discharge Instructions Additional Instructions: You are declining having any laboratory evaluation, I recommended to be fully assessed for your complaints that we perform laboratory investigation, you have declined, please return to the emergency department or follow-up with your primary care physician at your earliest ability, you are leaving against our medical recommendation at this time and have not been completely evaluated Referrals: Shyanne Koch DO [Primary Care Provider] - 1 day Discharge Data Discharge Date/Time-TO BE ENTERED AT DEPARTURE: 02/23/23 17:39 Medical Decision Making 37-year-old female presents with variety of complaints, acute on chronic with prior evaluations Reviewed prior documentation including CT abdomen and pelvis and diagnostic labs that do not show acute evidence of acute abnormality Recommendation to perform labs today, EKG reassuring Patient adamantly refuses IV placement or diagnostic labs, she is aware that we cannot fully assess her without reviewing labs, she request to be discharged from the hospital She is fully alert, oriented, of decisional capacity, she is aware of the risk associated with her decision, she is discharged home in stable condition with stable vitals at time of my brief assessment She is encouraged to follow-up with her doctor return to the emergency department for reassessment at her earliest ability Medical Records Medical records reviewed: Yes I reviewed the patient's medical records. Lab Data Lab results reviewed: Yes I reviewed the patient's lab results. HPI General Date/Time Provider Initiated Documentation: 02/23/23 17:07 . HPI Narrative: This 37-year-old female presents with report of lightheaded feeling, palpitations, tachycardia intermittently for the past several months. States that she had symptoms while she was , recent delivery in June but states that her symptoms did not improve. She has been evaluated on several occasions for similar presentation and is uncertain as to the result of her work-up. She is concerned because her partner is returning to work and she is going to be home independently with the baby and she is concerned that she will be able to properly care for the child. She denies any fever, chills, chest pain, current shortness of breath. She states she feels anxiety but denies that contributing to her episodes. Her last episode was yesterday. She states they occur daily. Related Data Home Medications Medication Instructions Recorded Confirmed epinephrine 0.3 mg/0.3 mL 1 pen IM ONCE 01/20/13 02/23/23 injection, auto-injector (EpiPen) albuterol sulfate 90 mcg/actuation 2 puff inhalation Q6H PRN 04/23/20 02/23/23 aerosol inhaler (ProAir HFA) shortness of breath #18 grams ondansetron 4 mg disintegrating 4 mg PO Q8H PRN nausea and 04/23/20 02/23/23 tablet vomiting #30 tabs vitamin with calcium 1 tab PO DAILY #90 tabs 02/22/22 02/23/23 no.72-iron 27 mg-folic acid 1 mg tablet (PrePlus) divalproex 125 mg tablet,delayed 125 mg PO BID #180 tabs 08/10/22 02/23/23 release (Depakote) levonorgestrel-ethinyl estradiol 1 tab PO DAILY #84 tabs 09/07/22 02/23/23 0.1 mg-20 mcg tablet propranolol 10 mg tablet 10 mg PO BID #60 tabs 09/10/22 02/23/23 triamcinolone acetonide 0.1 % 1 applic topical BID #15 grams 01/05/23 02/23/23 topical ointment ibuprofen 600 mg tablet 600 mg PO Q6H PRN pain #60 tabs 01/17/23 02/23/23 baclofen 10 mg tablet 10 mg PO QID PRN PRN muscle spasms 02/05/23 02/23/23 #100 tabs hydromorphone 2 mg tablet 2 mg PO Q6H PRN pain #112 tabs 02/05/23 02/23/23 methylphenidate HCl 20 mg tablet 20 mg PO BID #56 tabs 02/05/23 02/23/23 omeprazole 20 mg capsule,delayed See Rx Instructions .Route 02/15/23 02/23/23 release .COMPLEX #60 caps Previous Rx's Medication Instructions Recorded albuterol sulfate 90 mcg/actuation 2 puff inhalation Q6H PRN 04/23/20 aerosol inhaler (ProAir HFA) shortness of breath #18 grams ondansetron 4 mg disintegrating 4 mg PO Q8H PRN nausea and 04/23/20 tablet vomiting #30 tabs vitamin with calcium 1 tab PO DAILY #90 tabs 02/22/22 no.72-iron 27 mg-folic acid 1 mg tablet (PrePlus) divalproex 125 mg tablet,delayed 125 mg PO BID #180 tabs 08/10/22 release (Depakote) levonorgestrel-ethinyl estradiol 1 tab PO DAILY #84 tabs 09/07/22 0.1 mg-20 mcg tablet propranolol 10 mg tablet 10 mg PO BID #60 tabs 09/10/22 triamcinolone acetonide 0.1 % 1 applic topical BID #15 grams 01/05/23 topical ointment ibuprofen 600 mg tablet 600 mg PO Q6H PRN pain #60 tabs 01/17/23 baclofen 10 mg tablet 10 mg PO QID PRN PRN muscle spasms 02/05/23 #100 tabs hydromorphone 2 mg tablet 2 mg PO Q6H PRN pain #112 tabs 02/05/23 methylphenidate HCl 20 mg tablet 20 mg PO BID #56 tabs 02/05/23 omeprazole 20 mg capsule,delayed See Rx Instructions .Route 02/15/23 release .COMPLEX #60 caps Allergies Allergy/AdvReac Type Severity Reaction Status Date / Time venom-honey bee Allergy Severe HIVES Verified 02/23/23 16:55 aripiprazole [From [facility]] AdvReac Intermediate Nausea Verified 02/23/23 16:55 acetaminophen AdvReac Unknown VOMITING; Verified 02/23/23 16:55 WEIGHT LOSS meloxicam AdvReac Unknown NAUSEA/VOMI Verified 02/23/23 16:55 TING hydrocodone AdvReac NAUSEA/VOMI Verified 02/23/23 16:55 TING oxycodone AdvReac VOMITING Verified 02/23/23 16:55 General Stated Complaint: Dizzy/Sync JONN: 3 PFSH All Active Problems (Updated 02/23/23 @ 17:40 by RAMOS Hall) Light-headed feeling (Acute) Right shoulder pain (Acute) Stiffness, crunching .. improves with movement during the day Malabsorption (Acute) PPI use.. Hx low-weight Difficulty demonstrating health literacy (Chronic) Pt is very honest on health care and process understanding.. [ ] CC for support PRN Costochondral chest pain (Acute) Affecting ADL, with activity .. once starts, stays. 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 Hydromorphone is the only opiate she can take that has not caused severe nausea and vomiting. Attention deficit hyperactivity disorder (ADHD), combined type (Acute 12/27/16) Chronic pain syndrome (Chronic 10/18/12) Idiopathic scoliosis (Chronic) Peripheral neuropathy (Acute) Lumbar spondylosis (Acute) Anxiety disorder (Acute) Sinus tachycardia (Acute) takes propranolol, 10 mg twice daily Bilateral leg numbness (Acute) Subacute .. since Generalized abdominal pain (Acute) Medical History Anemia Post delivery, [ ] re-check (Dec 2022) Gastroesophageal reflux disease History of pre-eclampsia Delivered @ [facility] [place], under urgent recommendations Hyperhidrosis of palms and soles (05/26/17) Legg-Perthes disease (~04/24/07) Left hip osteoarthritis - Dr Fernandez Coelho, [facility] [place] Microcephalus (06/16/11) possible FAS (per Peds: PCP - problems including juvenile dysplasia of both hips, microcephaly, severe learning disability, explosive personality disorder, and ADHD. She has multiple social issues as well...) Moderate single current episode of major depressive disorder (02/16/16) Paronychia of great toe of right foot Short stature disorder possible FAS Smoker Surgical History (Updated 01/10/23 @ 10:05 by Alyssa Rebolledo) History of arthroscopy of hip (~09/24/08) Right hip diagnostic arthroscopy; right hip anteriorllabral debridement; Intra-articular injection of right hip with marcaine, morphine, clonidine. [facility] [place] - Fernandez Coelho MD History of section Jun 2022 - emergent at [facility] [place] History of total left hip arthroplasty (~05/24/07) [facility] [place] - Fernandez Coelho MD S/P carpal tunnel release Status post arthroscopy of hip Family History Father Stroke Hypertension Diabetes Self COPD (chronic obstructive pulmonary disease) Per Dr. Patterson Paternal Grandfather Heart disease congenital heart defect Social History Smoking/Tobacco Use Status: Current every day Tobacco Type: e-cigarettes Smoking risk assessment performed?: Yes Alcohol Intake: never Drug use: Occasionally Substance use type: marijuana Household members: other Details: 2 Do you feel safe at home: Yes Do you feel safe in your relationship?: Yes Additional Social history: bipolar disorder History History 1 Para 1 Hx # Term Pregnancies 0 Multiple births 0 Hx # Pregnancies 0 Ectopic pregnancies 0 AB induced 0 Hx Number of Living Children 0 AB spontaneous 0 Past Pregnancies Del. Date GA/Weeks # Preg Succ Route Wgt Sex Labor Lgth Anesth esia Location [facility] 06/21/22 36 No Yes Female [facility] [place] Exam Const General: cooperative and comfortable Orientation: alert and oriented x3 Eyes Pupils: PERRL Resp Effort & Inspection: normal respiratory effort Auscultation: clear to auscultation bilaterally Cardio Rate: regular rate Rhythm: regular rhythm GI Inspection: normal to inspection Skin General skin exam: no rashes or lesions noted Neuro General: patient alert and patient oriented x3 Cranial Nerves: CN's II-XI intact bilaterally Cognition: normal cognition Speech: speech normal Extrem General: normal to inspection Other: No calf swelling or tenderness Course Vital Signs Vital signs: Vital Signs Temperature 36.1 C L 02/23/23 16:35 Pulse 103 H 02/23/23 16:35 Respiratory Rate 16 02/23/23 16:35 Blood Pressure 155/90 H 02/23/23 16:35 Pulse Oximetry 100 02/23/23 16:35 Temperature 36.1 C L 02/23/23 16:35 Temperature Source Skin 02/23/23 16:35 Pulse 103 H 02/23/23 16:35 Respiratory Rate 15 02/23/23 16:49 Respiratory Effort Normal 02/23/23 16:49 Respiratory Depth Normal 02/23/23 16:49 Respiratory Pattern Normal 02/23/23 16:49 Blood Pressure 155/90 H 02/23/23 16:35 Blood Pressure Position Sitting 02/23/23 16:35 Pulse Oximetry 100 02/23/23 16:35 Oxygen Delivery Method Room Air 02/23/23 16:35 Oxygen Flow Rate 0 02/23/23 16:35 Pain Level 0 02/23/23 16:35
--- NOTE | 2023-02-23 17:41 | NUR.NOTE ---
Nursing Note: Pt refused blood work, refused to provide urine, refused everything that the provider offered to help her and then eloped
== END 2023-02-23 17:39 | disposition left against medical advice (07) ==
PROVIDERS: Emergency Provider Physician Assistant; PCP Student in an Organized Health Care Education/Training Program
DX: R42 Dizziness and giddiness (principal); R00.2 Palpitations; R00.0 Tachycardia, unspecified
CPT/HCPCS: 80053; 83690; 93005; 99283; 83735; 84443; 84484; 85025; 85379; 86140; 93010

== ENCOUNTER → 2023-03-16 10:22 | Outpatient (BNVA) | payer MEDICARE, MEDICAID, SELFPAY | PROVIDERS: PCP Student in an Organized Health Care Education/Training Program; Referring Provider Nurse Practitioner Family; Visit Provider Psychiatry & Neurology Neurology | DX: R20.0 Anesthesia of skin (principal); R20.2 Paresthesia of skin | CPT/HCPCS: 99214 ==

== ENCOUNTER 2023-03-17 02:13 | Outpatient (CLI) | payer MEDICARE, MEDICAID, SELFPAY ==
--- NOTE | 2023-03-21 14:42 | PFT_ITS ---
Date of service: 03/19/23 Time of Service: 21:28 Pulmonary Function Test Result Indications: Headaches Note: Overnight Oximetry Amount of time analyzed: 9 hours 39 minutes Number of minutes under 88%: 11.7 EUGENE:0.4 Appearance of oxygen saturation pattern: Some sharp decreases that could be consistent with FRANSISCO in the correct clinical context Recommendation: Technically qualifies for nocturnal oxygen. Consider further sully ting with a sleep study. Tamara Pichardo MD Pulmonary & Critical Care Medicine Clinical Correlation therefore is recommended.
== END 2023-03-17 02:14 | disposition home or self-care (01) ==
LOC: RT 02:13
PROVIDERS: PCP Student in an Organized Health Care Education/Training Program; Visit Provider Student in an Organized Health Care Education/Training Program
DX: R51.9 Headache, unspecified (principal)
CPT/HCPCS: 94762

== ENCOUNTER → 2023-03-22 12:16 | Outpatient (BNVA) | payer MEDICARE, MEDICAID, SELFPAY | PROVIDERS: PCP Student in an Organized Health Care Education/Training Program; Referring Provider Student in an Organized Health Care Education/Training Program; Visit Provider Psychiatry & Neurology Neurology | DX: R20.0 Anesthesia of skin (principal); R20.2 Paresthesia of skin | CPT/HCPCS: 95909 ==

== ENCOUNTER 2023-03-24 13:23 | Outpatient (CLI) | payer MEDICARE, MEDICAID, SELFPAY | END 2023-03-24 13:24 | disposition home or self-care (01) | LOC: CARDOPNVT 13:23 | PROVIDERS: PCP Student in an Organized Health Care Education/Training Program; Visit Provider Student in an Organized Health Care Education/Training Program | DX: R09.02 Hypoxemia (principal); R23.2 Flushing; R51.9 Headache, unspecified; R55 Syncope and collapse | CPT/HCPCS: 93246 ==

== ENCOUNTER 2023-04-07 14:16 | Outpatient (REF) | payer MEDICARE, MEDICAID, SELFPAY | END 2023-04-07 14:17 | disposition home or self-care (01) | LOC: LBN 14:16 | PROVIDERS: PCP Student in an Organized Health Care Education/Training Program; Visit Provider Student in an Organized Health Care Education/Training Program | DX: R30.0 Dysuria (principal) | CPT/HCPCS: 87077; 87086; 87186 ==

== ENCOUNTER 2023-04-13 01:58 | Outpatient (CLI) | payer MEDICARE, MEDICAID, SELFPAY ==
--- NOTE | 2023-04-13 12:35 | DI.MRI_ITS ---
Exam(s) MR BRAIN WO EXAM: MR BRAIN WO CLINICAL HISTORY: ?MS,PARESTHESIAS,R20.2 TECHNIQUE: Multiplanar multisequence MRI of the brain was performed. COMPARISON: No exams were available for comparison FINDINGS: CEREBRAL PARENCHYMA: There is no evidence of intracranial hemorrhage, mass effect, or shift of midline structures. There are no extra-axial fluid collections. Ventricles are not enlarged or shifted. There is no significant focal signal abnormality in the cerebellar hemispheres nor within the maximino, m idbrain, and thalami. There is no abnormal signal abnormality in the periventricular white matter. No evidence of demyelin ating disease. There is no significant focal signal abnormality evident on diffusion imaging to suggest acute ischem ic event. SWI: No evidence of microhemorrhages. PITUITARY GLAND: No mass nor parasellar abnormality. No obvious abnormality in the cavernous sinuses. FLOW VOIDS: The expected flow void are noted. No evidence of obvious aneurysm nor obvious vascular ma lformation. PARANASAL SINUSES: The visualized paranasal sinuses appear unremarkable. No obvious finding ORBITS: No obvious findings. IMPRESSION: No significant intracranial findings on this noninfused MRI scan of the brain. No evidence of demyelinating disease, as per request. DATA REPOSITORY:
== END 2023-04-13 02:18 ==
LOC: DI 01:59
PROVIDERS: PCP Student in an Organized Health Care Education/Training Program; Visit Provider Psychiatry & Neurology Neurology
DX: R20.2 Paresthesia of skin (principal)
CPT/HCPCS: 70551

== ENCOUNTER 2023-04-20 10:59 | Outpatient (CLI) | payer MEDICARE, MEDICAID, SELFPAY ==
--- NOTE | 2023-04-20 11:51 | W.CARDEVENT ---
Date of service: 04/20/23 Time of Service: 11:52 Cardiac Event Recorder Referring Provider:: Shyanne Koch Indications:: Syncope Cardiac Event Note: This is a cardiac event recorder. Patient was monitored for a total of 12 days and 8 hours Rhythm throughout was sinus with an average heart rate of 87. Minimum was 46, maximum 153 There were very rare isolated ventricular ectopic beats. 1 ventricular triplet was seen during sleep There were very rare isolated atrial premature beats There was no atrial fibrillation, no SVT, no pauses greater than 3 seconds, no high-grade AV block Patient symptoms corresponded to sinus rhythm rates 75-1 09
== END 2023-04-20 11:00 | disposition home or self-care (01) ==
LOC: CARDOPNVT 10:59
PROVIDERS: PCP Student in an Organized Health Care Education/Training Program; Visit Provider Internal Medicine Cardiovascular Disease
DX: R55 Syncope and collapse (principal)
CPT/HCPCS: 93248

== ENCOUNTER → 2023-05-08 14:13 | Outpatient (BNVA) | payer MEDICARE, MEDICAID, SELFPAY | PROVIDERS: PCP Student in an Organized Health Care Education/Training Program; Referring Provider Student in an Organized Health Care Education/Training Program; Visit Provider Psychiatry & Neurology Neurology | DX: G60.9 Hereditary and idiopathic neuropathy, unspecified (principal) | CPT/HCPCS: 99213 ==

== ENCOUNTER 2023-09-19 15:25 | Emergency (ER) | payer MEDICARE, MEDICAID, SELFPAY ==
[2023-09-19 15:31] VITALS: BP 156/83; PULSE 90; RESP 18; TEMP 36.9; O2SAT 100
== END 2023-09-19 16:23 | disposition left against medical advice (07) ==
PROVIDERS: Emergency Provider Registered Nurse Emergency; PCP Student in an Organized Health Care Education/Training Program
DX: Z53.21 Procedure and treatment not carried out due to patient leaving prior to being seen by health care provider (principal)

== ENCOUNTER → 2023-09-20 11:58 | Outpatient (CLI) | payer MEDICARE, MEDICAID, SELFPAY ==
--- NOTE | 2023-09-20 10:34 | DI.RAD_ITS ---
Exam(s) XR LUMBAR SPINE COMPLETE EXAM: XR LUMBAR SPINE COMPLETE CLINICAL HISTORY: acute low back pain exacerbation, M54.50. TECHNIQUE: 2D digital imaging was performed of the lumbar spine. Five images were obtained. AP, la teral, right oblique, left oblique and L5-S1 spot views were obtained. COMPARISON: No exams were available for comparison FINDINGS: BONES: No fracture or destructive lesion. Small endplate osteophytes are present at multiple levels o f the lumbar spine. No facet hypertrophy identified. A left total hip replacement is partially image d. DISKS: Intervertebral disc spaces are maintained. ALIGNMENT: Lumbar spinal alignment is within normal limits. No spondylolysis or spondylolisthesis. SOFT TISSUE: Normal. IMPRESSION: Mild degenerative changes are seen in the lumbar spine. DATA REPOSITORY: RADIATION DOSE DELIVERED:
== END ==
PROVIDERS: PCP Student in an Organized Health Care Education/Training Program; Visit Provider Nurse Practitioner Family
DX: M51.36 Other intervertebral disc degeneration, lumbar region (principal)
CPT/HCPCS: 72110

== ENCOUNTER 2023-11-03 11:00 | Outpatient (CLI) | payer MEDICARE, MEDICAID, SELFPAY ==
--- NOTE | 2023-11-03 11:00 | RT.EKG_ITS ---
APPROVED REPORT Exam: Resting ECG Reason for Exam: baseline for monitoring while on stimulant Patient Location: O HR:104 bpm ECG Measurements Heart Rate 104 AXIS AL 173 P 74 QRSd 98 QRS -23 QT 360 T 46 QTc 474 Conclusion Sinus tachycardia...rate> 99 Borderline left axis deviation...QRS axis (-15,-29) Baseline wander in lead(s) V2 I have reviewed and interpreted ECG and agree with software generated interpretation.
== END 2023-11-03 11:01 | disposition home or self-care (01) ==
LOC: DI.KIM 11:07
PROVIDERS: PCP Student in an Organized Health Care Education/Training Program; Visit Provider Student in an Organized Health Care Education/Training Program
DX: Z79.899 Other long term (current) drug therapy (principal)
CPT/HCPCS: 93010

== ENCOUNTER → 2024-02-29 03:27 | Outpatient (CLI) | payer MEDICARE, MEDICAID, SELFPAY ==
--- NOTE | 2024-02-29 08:45 | DI.MRI_ITS ---
Exam(s) MR LOWER JOINT RT WO EXAM: MR LOWER JOINT RT WO CLINICAL HISTORY: eval DJD vs rt labral tear for surg plan,CONGENITAL ABNL,RT HIP PAIN,M25.55 TECHNIQUE: Multiplanar multisequence MRI of hip was performed COMPARISON: No exams were available for comparison FINDINGS: Bones: There is no evidence of a fracture or avascular necrosis. No significant joint effusion or l abral injury is present. Subchondral cysts are seen in the acetabular roof. The SI joints and symphy sis pubis are well maintained. The patient has a left total hip replacement. Musculotendinous structures: Musculotendinous structures demonstrate no abnormality. Intrapelvic str uctures demonstrate no significant abnormality. There is minimal edema seen adjacent to the greater t uberosity but no focal fluid collection is seen. There is no evidence of a tendon tear. IMPRESSION: 1. No evidence of an occult fracture or avascular necrosis of the right hip. 2. No evidence of a labral tear on this noncontrast examination. 3. Mild subchondral cysts and edema seen in the acetabular roof which may reflect mild arthrosis. DATA REPOSITORY:
== END ==
PROVIDERS: PCP Student in an Organized Health Care Education/Training Program; Visit Provider Student in an Organized Health Care Education/Training Program
DX: Z98.890 Other specified postprocedural states; Z96.642 Presence of left artificial hip joint; M25.551 Pain in right hip; M25.351 Other instability, right hip; M91.12 Juvenile osteochondrosis of head of femur [Legg-Calve-Perthes], left leg; M85.451 Solitary bone cyst, right pelvis
CPT/HCPCS: 73721

== ENCOUNTER → 2024-03-19 04:46 | Outpatient (CLI) | payer MEDICARE, MEDICAID, SELFPAY ==
--- NOTE | 2024-03-19 07:00 | DI.MRI_ITS ---
Exam(s) MR LOWER JOINT RT WO EXAM: MR LOWER JOINT RT WO CLINICAL HISTORY: evaluate aggrevated old injury,unstable,rt knee pain,chronic instability. TECHNIQUE: Multiplanar multisequence MRI was performed. COMPARISON: No exams were available for comparison FINDINGS: BONES: No evidence of an acute fracture. Mild nonspecific marrow edema seen in the proximal tibia. JOINTS: There is mild thinning of the articular cartilage overlying the lateral patellar facet. Ther e is mild subchondral edema present. No effusion is present. TENDONS: Extensor mechanism: Unremarkable. Medial retinaculum: Unremarkable. Lateral retinaculum: Unremarkable. Popliteus: Unremarkable. MUSCLES: Unremarkable. MENISCI: The medial meniscus is unremarkable. The lateral meniscus is unremarkable. SOFT TISSUES: There is a tiny popliteal cyst. There is a small amount of fluid lateral to the latera l tibial plateau. This may represent a small parameniscal cyst. No meniscal tear is seen. LIGAMENTS: Anterior Cruciate: Unremarkable. Posterior Cruciate: Unremarkable. Medial Collateral:Unremarkable. Lateral Collateral: Unremarkable. OTHER: IMPRESSION: 1. No evidence of a meniscal or ligament tear. 2. Mild chondromalacia involving the lateral patellar facet. DATA REPOSITORY:
== END ==
PROVIDERS: PCP Student in an Organized Health Care Education/Training Program; Visit Provider Student in an Organized Health Care Education/Training Program
DX: M25.561 Pain in right knee (principal); M23.51 Chronic instability of knee, right knee
CPT/HCPCS: 73721

== ENCOUNTER → 2024-04-22 04:19 | Outpatient (CLI) | payer MEDICARE, MEDICAID, SELFPAY ==
--- NOTE | 2024-04-22 07:15 | DI.US_ITS ---
Exam(s) US SOFT TISSUE HEAD OR NECK EXAM: US SOFT TISSUE HEAD OR NECK CLINICAL HISTORY: eval lymph node vs parotid vs tonsil,abnl swallowing,chronic sore throat,. TECHNIQUE: Ultrasound was performed using standard protocol. COMPARISON: US US ABDOMEN PELVIS from 11/25/2022 FINDINGS: Ultrasound of the areas of concern and neck performed. There are multiple lymph nodes of both sides the neck at and below the level the parotid glands. Lar ge lymph node in the right-side of the neck measures 1.9 x 0.3 x 0.8 cm. Largest in left side of the neck measures 1.2 x 0.3 x 0.5 cm. There are 2 small lymph nodes in the submandibular regions measur ing 0.7 x 0.3 and 0.5 x 0.3 cm. IMPRESSION: Multiple slightly enlarged lymph nodes in both sides the neck as described above. Consider contrast infused CT scan of the soft tissues of the neck to determine if there is a local so urce for this generalized reactive appearing lymphadenopathy. DATA REPOSITORY:
== END ==
PROVIDERS: PCP Student in an Organized Health Care Education/Training Program; Visit Provider Student in an Organized Health Care Education/Training Program
DX: J31.2 Chronic pharyngitis (principal)
CPT/HCPCS: 76536

== ENCOUNTER → 2024-04-29 04:18 | Outpatient (CLI) | payer MEDICARE, MEDICAID, SELFPAY ==
--- NOTE | 2024-04-29 06:45 | DI.RAD_ITS ---
Exam(s) RF MODIFIED SPEECH BA SWALLOW TECHNIQUE: Modified barium swallow was performed in conjunction with speech pathology. CONTRAST MATERIAL: Multiple consistencies of oral barium contrast were administered. COMPARISON: No exams were available for comparison FINDINGS: Note that this is not a dedicated esophagram, distal esophagus not evaluated. There is no evidence of aspiration or penetration with any consistency. No significant residue in th e vallecular or piriform sinuses. Speech pathology report to follow. IMPRESSION: No evidence of aspiration or penetration. RADIATION DOSE DELIVERED: isis Mahan=3.67 mGy
[2024-04-29] MEDS: Barium Sulfate Oral Paste 40% W/V 230 ML TUBE 60 ML PO (10:15)
[2024-04-29] MEDS: Barium Sulfate 81% w/w for Oral Suspension 148 GM BTL 90 GM PO (10:17)
[2024-04-29] MEDS: Barium Sulfate 40% W/V 240 ML BTL 60 ML PO (10:18)
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
== END ==
PROVIDERS: PCP Student in an Organized Health Care Education/Training Program; Visit Provider Speech-Language Pathologist
DX: J31.2 Chronic pharyngitis (principal); R13.10 Dysphagia, unspecified
CPT/HCPCS: 92526; 74221

== ENCOUNTER 2024-10-09 01:08 | Outpatient (CLI) | payer MEDICARE, MEDICAID, SELFPAY ==
--- NOTE | 2024-10-09 10:37 | DI.RAD_ITS ---
Exam(s) XR RIBS BI INCLUDE CHEST EXAM: XR RIBS BI INCLUDE CHEST CLINICAL HISTORY: evaluate for stress Fx; bony path, rib cage dysfunction, rib pain mirta, TECHNIQUE: 2D digital imaging was performed. Five images were obtained. COMPARISON: No exams were available for comparison FINDINGS: MEDIASTINUM: Normal. HEART: Normal. PULMONARY VASCULATURE: Normal. LUNGS: Clear. PLEURAL SPACE: No pleural effusion or pneumothorax. BONE:Normal. BILATERAL RIBS: Normal. No evidence of an acute or healing fracture. OTHER FINDINGS:Normal. IMPRESSION: 1. No acute pulmonary findings. 2. Unremarkable ribs. DATA REPOSITORY: RADIATION DOSE DELIVERED:
--- NOTE | 2024-10-09 10:38 | DI.RAD_ITS ---
Exam(s) XR SHOULDER RT COMPLETE 2+V EXAM: XR SHOULDER RT COMPLETE 2+V CLINICAL HISTORY: evaluate joint space due to acute loss of ROM, arthralgia, costochondral CP. TECHNIQUE: 2D digital imaging was performed of the right shoulder. Five images were obtained. AP, Grashey, Y-view and axillary views were obtained. COMPARISON: No exams were available for comparison FINDINGS: BONES: No acute fracture is present. No bony destructive lesion is seen. JOINTS: No dislocation present. The glenohumeral and acromioclavicular joints are well maintained. SOFT TISSUE: Normal. IMPRESSION: Unremarkable radiographs of the right shoulder. DATA REPOSITORY: RADIATION DOSE DELIVERED:
--- NOTE | 2024-10-09 10:38 | DI.RAD_ITS ---
Exam(s) XR SHOULDER LT COMPLETE 2+V EXAM: XR SHOULDER LT COMPLETE 2+V CLINICAL HISTORY: eval joint space, compare to left shldr, r/o path, pain, M25.511, X50.3XXA. TECHNIQUE: 2D digital imaging was performed of the left shoulder. Five images were obtained. AP, G rashey, Y-view and axillary views were obtained. COMPARISON: No exams were available for comparison FINDINGS: BONES: No acute fracture is present. No bony destructive lesion is seen. JOINTS: No dislocation present. The joint spaces are well maintained. SOFT TISSUE: Normal. IMPRESSION: Unremarkable radiographs of the left shoulder. DATA REPOSITORY: RADIATION DOSE DELIVERED:
== END 2024-10-09 01:28 ==
LOC: DI 01:08
PROVIDERS: PCP Student in an Organized Health Care Education/Training Program; Visit Provider Student in an Organized Health Care Education/Training Program
DX: M99.08 Segmental and somatic dysfunction of rib cage; M25.511 Pain in right shoulder; X50.3XXA Overexertion from repetitive movements, initial encounter; M25.512 Pain in left shoulder
CPT/HCPCS: 71046; 71110; 73030

== ENCOUNTER 2024-12-29 18:40 | Emergency (ER) | payer MEDICARE, MEDICAID, SELFPAY ==
[2024-12-29 18:54] VITALS: BP 153/79; PULSE 93; RESP 20; TEMP 36.7; O2SAT 97
--- NOTE | 2024-12-29 19:40 | ED.GENADUL_ITS ---
Discharge Plan Disposition Patient Disposition: Home Condition: Stable Discharge Details Clinical Impression: Influenza A Primary Care Provider: David Toure ED Provider: Hood Carson Home Meds and New Rx's Prescriptions: New prednisone 20 mg tablet 60 mg PO DAILY 4 Days Qty: 12 0RF Continued triamcinolone acetonide 0.1 % ointment 1 applic topical BID Qty: 15 1RF Rx Instructions: Trial for itching x 1 week (do not continue daily; ok for 3 days on/3 days off) propranolol 10 mg tablet 10 mg PO BID Qty: 60 3RF ondansetron 4 mg tablet,disintegrating 4 mg PO Q8H PRN (Reason: nausea and vomiting) Qty: 30 4RF albuterol sulfate [ProAir HFA] 90 mcg/actuation HFA aerosol inhaler 2 puff IH Q6H PRN (Reason: shortness of breath) Qty: 18 4RF hydromorphone 2 mg tablet 2 mg PO Q6H MDD 8mg PRN (Reason: pain) Qty: 112 0RF methylphenidate HCl 20 mg tablet 20 mg PO BID MDD 40mg Qty: 56 0RF methylphenidate HCl 20 mg tablet 20 mg PO BID MDD 40mg Qty: 56 0RF Rx Instructions: 28 Day Rx epinephrine [EpiPen] 0.3 MG/0.3 ML auto-injector 1 pen IM ONCE Patient Comments: PNV,calcium [id number] acid 27 mg iron- 1 mg tablet 1 tab PO DAILY Qty: 90 3RF Rx Instructions: give with food (meal/snack) divalproex 125 mg tablet,delayed release (DR/EC) See Rx Instructions .ROUTE .COMPLEX Qty: 180 0RF Dose Instruction: TAKE 1 TABLET BY MOUTH TWO TIMES A DAY Rx Instructions: TAKE 1 TABLET BY MOUTH TWO TIMES A DAY omeprazole 20 mg capsule,delayed release(DR/EC) See Rx Instructions .ROUTE .COMPLEX Qty: 60 3RF Dose Instruction: TAKE ONE CAPSULE BY MOUTH TWICE A DAY NEEDED FOR GERD Rx Instructions: TAKE ONE CAPSULE BY MOUTH TWICE A DAY NEEDED FOR GERD ibuprofen 600 mg tablet 600 mg PO Q6H PRN (Reason: inflammation) Qty: 60 2RF Rx Instructions: Use for joint pain/inflammation, WITH FOOD baclofen 10 mg tablet 10 mg PO QID PRN MDD 40mg PRN (Reason: muscle spasms) Qty: 100 1RF Rx Instructions: Refilling @ QID, PRN (so, not scheduled) hydromorphone 2 mg tablet 2 mg PO Q6H MDD 8mg PRN (Reason: pain, severe) Qty: 112 0RF hydromorphone 2 mg tablet 2 mg PO Q6H MDD 8mg Qty: 112 0RF Rx Instructions: 28 Day Rx methylphenidate HCl 20 mg tablet 20 mg PO BID MDD 40mg Qty: 56 0RF Rx Instructions: 28 Day Rx Discontinued amoxicillin 875 mg tablet 875 mg PO BID Qty: 20 0RF Discharge Instructions Additional Instructions: You are positive for the flu. Follow-up with your primary care provider this week if you are not improving. You can take 500 mg of acetaminophen every 6 hours as needed and 400 mg of ibuprofen every 4 hours as needed. If you feel more ill or have severe worsening shortness of breath return to the emergency department for reevaluation HPI General Mode of arrival: ambulatory . Date/Time Provider Initiated Documentation: 12/29/24 19:00 . Limitations to Documentation: no limitations . Information obtained by: patient . History of Present Illness 39 year old F presents to the emergency department with the chief complaint of cough, described as moderate, Patient started experiencing this day(s) and it has been constant. No relieving factors improve symptom(s), No exacerbating factors reported . Patient notes cough and fever/chills. Patient did receive the following treatments prior to arrival, none Related Data Home Medications ?Medication ?Instructions ?Recorded ?Confirmed epinephrine 0.3 mg/0.3 mL 1 pen IM ONCE 01/20/13 12/29/24 injection, auto-injector (EpiPen) ondansetron 4 mg disintegrating 4 mg PO Q8H PRN nausea and 04/23/20 12/29/24 tablet vomiting #30 tabs triamcinolone acetonide 0.1 % 1 applic topical BID #15 grams 01/05/23 12/29/24 topical ointment vitamin with calcium 1 tab PO DAILY #90 tabs 02/21/24 12/29/24 no.72-iron 27 mg-folic acid 1 mg tablet albuterol sulfate 90 mcg/actuation 2 puff inhalation Q6H PRN 02/23/24 12/29/24 aerosol inhaler (ProAir HFA) shortness of breath #18 grams propranolol 10 mg tablet 10 mg PO BID #60 tabs 04/22/24 12/29/24 divalproex 125 mg tablet,delayed See Rx Instructions .Route 11/12/24 12/29/24 release .COMPLEX #180 tabs ibuprofen 600 mg tablet 600 mg PO Q6H PRN inflammation #60 11/12/24 12/29/24 tabs omeprazole 20 mg capsule,delayed See Rx Instructions .Route 11/12/24 12/29/24 release .COMPLEX #60 caps hydromorphone 2 mg tablet 2 mg PO Q6H PRN pain #112 tabs 11/18/24 12/29/24 methylphenidate HCl 20 mg tablet 20 mg PO BID #56 tabs 11/18/24 12/29/24 methylphenidate HCl 20 mg tablet 20 mg PO BID #56 tabs 11/18/24 12/29/24 baclofen 10 mg tablet 10 mg PO QID PRN PRN muscle spasms 12/23/24 12/29/24 #100 tabs hydromorphone 2 mg tablet 2 mg PO Q6H PRN pain, severe #112 12/23/24 12/29/24 tabs hydromorphone 2 mg tablet 2 mg PO Q6H chronic pain #112 tabs 12/23/24 12/29/24 methylphenidate HCl 20 mg tablet 20 mg PO BID #56 tabs 12/23/24 12/29/24 prednisone 20 mg tablet 60 mg (3 x 20 mg) PO DAILY 4 days 12/29/24 #12 tabs Previous Rx's ?Medication ?Instructions ?Recorded ondansetron 4 mg disintegrating 4 mg PO Q8H PRN nausea and 04/23/20 tablet vomiting #30 tabs triamcinolone acetonide 0.1 % 1 applic topical BID #15 grams 01/05/23 topical ointment vitamin with calcium 1 tab PO DAILY #90 tabs 02/21/24 no.72-iron 27 mg-folic acid 1 mg tablet albuterol sulfate 90 mcg/actuation 2 puff inhalation Q6H PRN 02/23/24 aerosol inhaler (ProAir HFA) shortness of breath #18 grams propranolol 10 mg tablet 10 mg PO BID #60 tabs 04/22/24 divalproex 125 mg tablet,delayed See Rx Instructions .Route 11/12/24 release .COMPLEX #180 tabs ibuprofen 600 mg tablet 600 mg PO Q6H PRN inflammation #60 11/12/24 tabs omeprazole 20 mg capsule,delayed See Rx Instructions .Route 11/12/24 release .COMPLEX #60 caps hydromorphone 2 mg tablet 2 mg PO Q6H PRN pain #112 tabs 11/18/24 methylphenidate HCl 20 mg tablet 20 mg PO BID #56 tabs 11/18/24 methylphenidate HCl 20 mg tablet 20 mg PO BID #56 tabs 11/18/24 baclofen 10 mg tablet 10 mg PO QID PRN PRN muscle spasms 12/23/24 #100 tabs hydromorphone 2 mg tablet 2 mg PO Q6H PRN pain, severe #112 12/23/24 tabs hydromorphone 2 mg tablet 2 mg PO Q6H chronic pain #112 tabs 12/23/24 methylphenidate HCl 20 mg tablet 20 mg PO BID #56 tabs 12/23/24 prednisone 20 mg tablet 60 mg (3 x 20 mg) PO DAILY 4 days 12/29/24 #12 tabs Allergies Allergy/AdvReac Type Severity Reaction Status Date / Time venom-honey bee Allergy Severe HIVES Verified 12/29/24 18:59 [facility] AdvReac Intermediate Nausea Verified 12/29/24 18:59 acetaminophen AdvReac Unknown VOMITING; Verified 12/29/24 18:59 WEIGHT LOSS meloxicam AdvReac Unknown NAUSEA/VOMI Verified 12/29/24 18:59 TING hydrocodone AdvReac NAUSEA/VOMI Verified 12/29/24 18:59 TING oxycodone AdvReac VOMITING Verified 12/29/24 18:59 General Stated Complaint: RespSymp JONN: 4 Review of Systems All systems reviewed & are unremarkable except as noted in HPI and below Constitutional Constitutional: Reports chills and Reports fever(s) Cardiovascular Cardiovascular: Denies chest pain and Denies dyspnea Respiratory Respiratory: Reports cough and Denies dyspnea Gastrointestinal Gastrointestinal: Denies abdominal pain, Denies nausea and Denies vomiting Integumentary/Breasts Skin/Breast: Denies rash Exam Const General: no acute distress Orientation: alert HENMT Head: normal to inspection Ears: external ears normal General nose exam: external nose normal Mouth: moist mucous membranes Eyes General: appearance normal, both eyes and all related structures Neck Neck: normal visual inspection Resp Effort & Inspection: normal respiratory effort and able to speak in complete sentences Auscultation: rhonchi and wheezes Cardio Rate: regular rate Skin General skin exam: no rashes or lesions noted Neuro General: patient alert and patient oriented x3 Extrem General: normal to inspection Psych Mental Status: mental status grossly normal Course Vital Signs Vital signs: Vital Signs Temperature 36.7 C 12/29/24 18:54 Pulse 93 H 12/29/24 18:54 Respiratory Rate 20 12/29/24 18:54 Blood Pressure 153/79 H 12/29/24 18:54 Pulse Oximetry 97 12/29/24 18:54 Temperature 36.7 C 12/29/24 18:54 Temperature Source Oral 12/29/24 18:54 Pulse 93 H 12/29/24 18:54 Respiratory Rate 20 12/29/24 18:54 Blood Pressure 153/79 H 12/29/24 18:54 Blood Pressure Position Sitting 12/29/24 18:54 Pulse Oximetry 97 12/29/24 18:54 Oxygen Delivery Method Room Air 12/29/24 18:54 Oxygen Flow Rate 0 12/29/24 18:54 Pain Level 5 12/29/24 18:54 Medical Decision Making 39-year-old female who states has a history of COPD and continues to vape, comes in with 1 to 2 days of productive cough along with subjective fevers and chills. She denies any IV drug use. Denies any recent travel. She is speaking in full sentences on exam. She has wheezing at the apices bilaterally and rhonchi at the bases bilaterally with intermittent harsh sounding cough. No JVD or leg swelling. I suspect respiratory infection versus COPD exacerbation. Will check a chest x-ray and Fluvid and treat her symptoms with a DuoNeb and prednisone. X-ray on my read shows no acute findings. Patient lung sounds now clear. She is positive for flu A. She had symptoms for over 48 hours when asked again, do not feel Tamiflu indicated. She will follow-up with her PCP if not improving and return precautions given Differential Diagnosis Differential Diagnosis: Pneumonia, COPD exacerbation, flu, COVID Quality:SDOH Health Related Social Needs: No Data to Display PFSH All Active Problems (Updated 02/16/25 @ 20:21 by Hood Carson MD) Influenza A (Acute) Chronic shoulder pain (Acute) Chronic neck pain (Acute) High risk medication use (Acute) Depakote Clavicle pain (Acute) Swelling vs pain, but tender and presuming inflamed Rib pain on left side (Acute) general ache Rib cage dysfunction (Acute) Patulous eustachian tube of right ear (Acute) Lymph nodes enlarged (Acute) per US, 04/22/24 (Ba Swallow NEG) .. considering CT Chronic sore throat (Acute) soreness, with bump, NOT like strep Knee pain, right (Acute) Meniscal injury per pt recollection .. MRI requested Right hip pain (Acute) Hx arthroscopy; Hx congenital path per pt report; chronic pain and instability Foot pain, right (Acute) Wrist pain, right (Acute) Bilateral hand swelling (Acute) Right shoulder pain (Acute) Stiffness, crunching .. improves with movement during the day Swelling (Acute) Intermittent, with unclear etiology (different areas) Dermatitis (Acute) Family history of acute gouty arthritis (Acute) Fa with early onset Complex medical condition (Acute) Near syncope (Acute) Hypoalbuminemia (Acute) per Hx .. [ ] re-checking .. possible edema 2' low albumin? Hot flashes (Acute) Acute on chronic (episodic) .. usually white as a ghost per observers.. Abnormal flushing and sweating (Acute) Social anxiety disorder (Acute) Malabsorption (Acute) PPI use.. Hx low-weight Difficulty demonstrating health literacy (Chronic) Pt is very honest on health care and process understanding.. [ ] CC for support PRN Costochondral chest pain (Acute) Affecting ADL, with activity .. once starts, stays. 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 Hydromorphone is the only opiate she can take that has not caused severe nausea and vomiting. Attention deficit hyperactivity disorder (ADHD), combined type (Chronic 12/27/16) Idiopathic scoliosis (Chronic) Peripheral neuropathy (Acute) Lumbar spondylosis (Acute) Sinus tachycardia (Acute) takes propranolol, 10 mg twice daily Medical History (Updated 12/29/24 @ 20:21 by Hood Carson MD) Mild oppositional defiant disorder with angry or irritable mood Legg-Perthes disease (~04/24/07) [place] [facility] [place] of pre[place] [facility] [place] Anemia Post delivery, [ ] re-check (Dec 2022) Smoker 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 [facility] [place] History of total left hip arthroplasty (~05/24/07[place] [facility] [place] History of section Jun 2022 [place] [facility] [place] post arthroscopy of hip S/P carpal tunnel release Family History Father Stroke Hypertension Diabetes Self COPD (chronic obstructive pulmonary disease) Per Dr. Patterson Paternal Grandfather Heart disease congenital heart defect Social History Smoking/Tobacco Use Status: Current every day Tobacco Type: e-cigarettes Smoking risk assessment performed?: Yes Alcohol Intake: never Drug use: Occasionally Substance use type: marijuana Household members: other Details: 2 Housing: house Do you feel safe at home: Yes Do you feel safe in your relationship?: Yes Additional Social history: bipolar disorder History History 1 Para 1 Hx # Term Pregnancies 0 Multiple births 0 Hx # Pregnancies 0 Ectopic pregnancies 0 AB induced 0 Hx Number of Living Children 0 AB spontaneous 0 Past Pregnancies Del. Date GA/Weeks # Preg Succ Route Wgt Sex Labor Lgth Anesth esia Location Prov Complic 06/21/22 36 No Yes Female [facility] [place]
--- NOTE | 2024-12-29 19:56 | DI.RAD_ITS ---
Exam(s) XR CHEST 2V PA LATERAL EXAM: XR CHEST 2V PA LATERAL CLINICAL HISTORY: cough, fever TECHNIQUE: 2D digital imaging was performed of the chest. Two images were obtained. PA and lateral views were obtained. COMPARISON: CR XR RIBS BI INCLUDE CHEST from 10/09/2024 FINDINGS: MEDIASTINUM: Normal. HEART: Normal. PULMONARY VASCULATURE: Normal. LUNGS: Clear. PLEURAL SPACE: No pleural effusion or pneumothorax. BONE:Within normal limits for the patient's age. OTHER FINDINGS:Normal. IMPRESSION: No acute pulmonary findings. DATA REPOSITORY: RADIATION DOSE DELIVERED:
[2024-12-29] MEDS: predniSONE 20 MG TAB 60 MG PO (19:59)
[2024-12-29] MEDS: Albuterol/Ipratropium 3 ML UPD VIAL UPD (19:59)
[2024-12-29 20:05] LABS: COVID-19 PCR Negative (Negative); Influenza A PCR Positive (Negative); Influenza B PCR Negative (Negative); RSV PCR Negative (Negative)
[2024-12-29 20:07] LABS: Source Nasopharynx
--- NOTE | 2024-12-29 20:18 | DI.VRAD_ITS ---
PROCEDURE INFORMATION: Exam: XR Chest Exam date and time: 12/29/2024 7:53 PM Age: 39 years old Clinical indication: Cough and fever; Cough, fever TECHNIQUE: Imaging protocol: Radiologic exam of the chest. Views: 2 views. COMPARISON: CR XR RIBS BI INCLUDE CHEST 10/09/2024 10:15 AM FINDINGS: Lungs: No focal pulmonary consolidation is seen. Pleural spaces: No pleural effusion or pneumothorax is demonstrated. Heart/Mediastinum: The heart appears normal in size. Bones/joints: The visualized bony structures appear intact. IMPRESSION: No active disease is seen in the chest. Dictated and Authenticated by: Pito Mosqueda MD. Orderin Yamileth Morataya MD
[2024-12-29] MEDS: Albuterol HFA 8 GM 60 PUFF INH IH (20:29)
[2024-12-29] MEDS: Inhaler, Assist Device 1 EACH MC (20:31)
[2024-12-29 20:33] VITALS: BP 148/78; PULSE 88; RESP 16; O2SAT 97
== END 2024-12-29 20:35 | disposition home or self-care (01) ==
PROVIDERS: Emergency Provider Emergency Medicine; PCP Family Medicine
DX: J10.1 Influenza due to other identified influenza virus with other respiratory manifestations (principal); R05.9 Cough, unspecified; R50.9 Fever, unspecified; R06.2 Wheezing; J44.9 Chronic obstructive pulmonary disease, unspecified
CPT/HCPCS: 87637; 99283; 71046; 99284; J7512; J7620

== ENCOUNTER 2025-01-06 13:40 | Emergency (ER) | payer MEDICARE, MEDICAID, SELFPAY ==
[2025-01-06 14:01] VITALS: BP 154/86; PULSE 85; RESP 16; TEMP 36.6; O2SAT 99
--- NOTE | 2025-01-06 14:20 | DI.CT_ITS ---
Exam(s) CT ABDOMEN PELVIS W EXAM: CT ABDOMEN PELVIS W CLINICAL HISTORY: Epigastric and periumbilical pain, N/V TECHNIQUE: Imaging Protocol: Axial computed tomography images with coronal and sagittal reformatted images were created and reviewed. CONTRAST MATERIAL: Intravenous: Omnipaque 350 Contrast volume:75 mL Oral: No COMPARISON: US US ABDOMEN PELVIS from 11/25/2022 FINDINGS: ABDOMEN: Lung Bases: No acute abnormality. Liver: Normal density. No measurable mass. Portal, Superior Mesenteric, and Splenic Veins: Unremarkable. Gallbladder and Biliary Tract: No radiodense calculus or dilation. Pancreas: Normal density, no abnormal calcifications or inflammatory process. Spleen: Normal. Adrenals: No masses seen. Kidneys: Normal size, contour and axis. No radiodense stones or obstructive uropathy. No masses seen. Abdominal Aorta: Abdominal portion non-dilated. Mild atherosclerotic calcification is present. Bowel: The stomach is incompletely distended limiting evaluation. The bowel shows no evidence of obs truction. The descending colon and sigmoid colon are incompletely distended limiting evaluation. No definite bowel wall thickening is seen. The appendix is not visualized. No right lower quadrant in flammatory process is seen. Peritoneal Cavity: There is a small amount of fluid in the pelvis. No free air. Lymph Nodes: Within normal limits. Bones: Within normal limits for the patient's age. Patient has a left total hip arthroplasty. Soft Tissues: Unremarkable. PELVIS: There is artifact in the pelvis secondary to the patient's left total hip arthroplasty. Bladder: Symmetric distention, no gross wall thickening. Reproductive Organs: There appear to be bilateral cystic collections in the adnexa. On the right it measures 4 x 3 cm (series 10, image 151). On the left there is a cystic structure which measures 2.6 x 2.2 cm (series 10, image 154). The left cystic lesion appears to be contiguous with the left ovar y and may be ovarian. The right cystic structure is less obviously ovarian in origin. Differential considerations include an ovarian cyst, distended fallopian tube or bowel. Lymph Nodes: Within normal limits. Bones: Within normal limits for the patient's age. IMPRESSION: 1. Bilateral cystic structures in the adnexa. Pelvic ultrasound is requested for further evaluation. While these may represent ovarian cysts, distended fallopian tubes or other cystic masses cannot be excluded. 2. Small amount of free fluid in the pelvis. RADIATION DOSE DELIVERED: 163.12mGy.cm Total DLP DATA REPOSITORY: All CT scans at this facility are submitted to the National Radiology Data Registry (NRDR) Dose Index Registry (DIR) with the [employer] (A[employer]). RADIATION OPTIMIZATION: All CT scans at this facility use at least one of these dose optimization te chniques: automated exposure control; mA and/or kV adjustment per patient size (includes targeted exa ms where dose is matched to clinical indication); or iterative reconstruction.
--- NOTE | 2025-01-06 14:21 | W.ED.GENAD ---
Discharge Plan Disposition Patient Disposition: Home Condition: Stable Discharge Details Clinical Impression: Abdominal pain of unknown cause Primary Care Provider: David Toure ED Provider: Clarice Cowan Home Meds and New Rx's Prescriptions: New dicyclomine 10 mg capsule 10 mg PO TID PRNQty: 20 0RF No Action triamcinolone acetonide 0.1 % ointment 1 applic topical BID Qty: 15 1RF Rx Instructions: Trial for itching x 1 week (do not continue daily; ok for 3 days on/3 days off) propranolol 10 mg tablet 10 mg PO BID Qty: 60 3RF ondansetron 4 mg tablet,disintegrating 4 mg PO Q8H PRN (Reason: nausea and vomiting) Qty: 30 4RF albuterol sulfate [ProAir HFA] 90 mcg/actuation HFA aerosol inhaler 2 puff IH Q6H PRN (Reason: shortness of breath) Qty: 18 4RF hydromorphone 2 mg tablet 2 mg PO Q6H MDD 8mg PRN (Reason: pain) Qty: 112 0RF methylphenidate HCl 20 mg tablet 20 mg PO BID MDD 40mg Qty: 56 0RF methylphenidate HCl 20 mg tablet 20 mg PO BID MDD 40mg Qty: 56 0RF Rx Instructions: 28 Day Rx epinephrine [EpiPen] 0.3 MG/0.3 ML auto-injector 1 pen IM ONCE Patient Comments: PNV,calcium 17-nusr-muojx acid 27 mg iron- 1 mg tablet 1 tab PO DAILY Qty: 90 3RF Rx Instructions: give with food (meal/snack) divalproex 125 mg tablet,delayed release (DR/EC) See Rx Instructions .ROUTE .COMPLEX Qty: 180 0RF Dose Instruction: TAKE 1 TABLET BY MOUTH TWO TIMES A DAY Rx Instructions: TAKE 1 TABLET BY MOUTH TWO TIMES A DAY omeprazole 20 mg capsule,delayed release(DR/EC) See Rx Instructions .ROUTE .COMPLEX Qty: 60 3RF Dose Instruction: TAKE ONE CAPSULE BY MOUTH TWICE A DAY NEEDED FOR GERD Rx Instructions: TAKE ONE CAPSULE BY MOUTH TWICE A DAY NEEDED FOR GERD ibuprofen 600 mg tablet 600 mg PO Q6H PRN (Reason: inflammation) Qty: 60 2RF Rx Instructions: Use for joint pain/inflammation, WITH FOOD baclofen 10 mg tablet 10 mg PO QID PRN MDD 40mg PRN (Reason: muscle spasms) Qty: 100 1RF Rx Instructions: Refilling @ QID, PRN (so, not scheduled) hydromorphone 2 mg tablet 2 mg PO Q6H MDD 8mg PRN (Reason: pain, severe) Qty: 112 0RF hydromorphone 2 mg tablet 2 mg PO Q6H MDD 8mg Qty: 112 0RF Rx Instructions: 28 Day Rx methylphenidate HCl 20 mg tablet 20 mg PO BID MDD 40mg Qty: 56 0RF Rx Instructions: 28 Day Rx Discharge Instructions Instructions: Abdominal Pain, Adult ED Additional Instructions: You were seen in the emergency department today for evaluation of abdominal pain with vomiting. In our department you had a full physical examination performed, had laboratory studies that were reassuring, though we did notice that your potassium is on the low side of normal which you can supplement with potassium rich foods in the diet such as bananas and potatoes. You had a CT scan of your abdomen that did not show any significant abnormalities, and an ultrasound of your pelvis that confirms that there are no significant or concerning cysts on your ovaries. You do have a small amount of fluid in your pelvis that can happen when you are on your menses, and irregular menses can occur for several months after cessation of hormonal medications. We recommend continuing your ibuprofen, heat as needed for cramping, and you can trial a medication known as Bentyl for spasmodic pain. Please follow-up with your primary care provider in the next few days to discuss this visit and any symptoms that change, worsen, or persist. Thank you for allowing us to be part of your care. Discharge Data Discharge Date/Time-TO BE ENTERED AT DEPARTURE: 01/06/25 17:43 HPI General Mode of arrival: ambulatory. Date/Time Provider Initiated Documentation: 01/06/25 13:52. Limitations to Documentation: no limitations. Information obtained by: patient and old records reviewed. HPI Narrative: HPI: This is a 39-year-old female patient with a past medical history significant for recent episode of influenza A, a history of , chronic pain, presenting for evaluation of abdominal pain with nausea and vomiting. The patient reports that she has been dealing with the symptoms, that have been gradually worsening since Monday of last week. She reports that the pain feels like a squeezing heaviness, she feels like her stomach has been gurgling more than typical, and she has noticed a decrease in her stool output. She passed a small pellet-like stool this morning. She states that she has been taking her normal home pain medications without significant improvement in her symptoms. Had an episode of vomiting states that she no longer feels nauseated. The pain is worsened by movement. She states that she has had decreased p.o. intake and at baseline has a hard time maintaining her hydration. She has not had any other recent changes to her health. She denies vaginal discharge, dysuria, flank pain. 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 1 episode of unprotected intercourse after which she took the Plan B pill. Uses nicotine, does not drink alcohol Exam: Gen: Awake and alert, in no apparent distress HEENT: Non-icteric sclera Neck: Supple Lungs: No apparent respiratory distress, normal respiratory effort. CV: Appears well perfused, strong distal pulses Abdomen: Non-distended, soft, tender to palpation in the epigastric and periumbilical region without rigidity, rebound, though the patient does have guarding in those regions. No CVA tenderness MSK: Moves 4 extremities without apparent limitation in ROM Skin: Visualized skin without rashes, cyanosis. Neuro: Normal Gait, no obvious focal deficits or facial asymmetry. Speaks in full, clear sentences. Psych: Appropriate for situation. MDM: This is a 39-year-old female patient presenting for evaluation of abdominal pain. Differential includes but is not limited to gastritis, peptic ulcer disease, pancreatitis, cholecystitis, hepatitis, appendicitis, diverticulitis, bowel obstruction. I considered urinary tract infection, kidney stone, though the patient is reassuringly without symptoms of same. I considered early related complaints including ectopic . No vaginal symptoms or isolated pelvic pain to increase my concern for PID/TOA. We will obtain laboratory studies to include CBC, CMP, magnesium, lipase, urinalysis and urine test. I will obtain a CT abdomen pelvis to better characterize any abnormalities which account for the patient's symptoms. At this time, the patient declines any medications for management of pain or nausea. ED Course: I independently interpreted the laboratory studies, which show no significant leukocytosis, anemia, or thrombocytopenia. The chemistry panel is without evidence of electrolyte abnormality, kidney dysfunction, or liver injury. Lipase is low, urinalysis with trace blood consistent with her menses, no evidence for infection. test negative. CT scan reviewed by myself, does show some questionably cystic structures in the pelvis and some pelvic free fluid, for which radiology recommended a pelvic ultrasound. It was otherwise without abnormality to account for the patient's symptoms. Pelvic ultrasound obtained and shows no adnexal cysts, redemonstrates a small amount of free fluid in the pelvis, and likely those were loops of small bowel in the pelvis that were seen on CT per radiology report. The patient's pain seems to have a spasmodic/bowel component to it, and while awaiting primary care follow-up for ongoing evaluation of her abdominal pain of unknown etiology, I did provide her with a prescription for Bentyl. At this time, the patient has had a full medical evaluation and is safe for discharge to home. They are hemodynamically stable, ambulatory, and tolerating PO. They are understanding of the follow-up plan and return precautions. They left our facility without incident. Clarice Cowan MD Related Data Home Medications ?Medication ?Instructions ?Recorded ?Confirmed epinephrine 0.3 mg/0.3 mL 1 pen IM ONCE 01/20/13 01/06/25 injection, auto-injector (EpiPen) ondansetron 4 mg disintegrating 4 mg PO Q8H PRN nausea and 04/23/20 01/06/25 tablet vomiting #30 tabs triamcinolone acetonide 0.1 % 1 applic topical BID #15 grams 01/05/23 01/06/25 topical ointment vitamin with calcium 1 tab PO DAILY #90 tabs 02/21/24 01/06/25 no.72-iron 27 mg-folic acid 1 mg tablet albuterol sulfate 90 mcg/actuation 2 puff inhalation Q6H PRN 02/23/24 01/06/25 aerosol inhaler (ProAir HFA) shortness of breath #18 grams propranolol 10 mg tablet 10 mg PO BID #60 tabs 04/22/24 01/06/25 divalproex 125 mg tablet,delayed See Rx Instructions .Route 11/12/24 01/06/25 release .COMPLEX #180 tabs ibuprofen 600 mg tablet 600 mg PO Q6H PRN inflammation #60 11/12/24 01/06/25 tabs omeprazole 20 mg capsule,delayed See Rx Instructions .Route 11/12/24 01/06/25 release .COMPLEX #60 caps hydromorphone 2 mg tablet 2 mg PO Q6H PRN pain #112 tabs 11/18/24 01/06/25 methylphenidate HCl 20 mg tablet 20 mg PO BID #56 tabs 11/18/24 01/06/25 methylphenidate HCl 20 mg tablet 20 mg PO BID #56 tabs 11/18/24 01/06/25 baclofen 10 mg tablet 10 mg PO QID PRN PRN muscle spasms 12/23/24 01/06/25 #100 tabs hydromorphone 2 mg tablet 2 mg PO Q6H PRN pain, severe #112 12/23/24 01/06/25 tabs hydromorphone 2 mg tablet 2 mg PO Q6H chronic pain #112 tabs 12/23/24 01/06/25 methylphenidate HCl 20 mg tablet 20 mg PO BID #56 tabs 12/23/24 01/06/25 dicyclomine 10 mg capsule 10 mg PO TID PRN #20 caps 01/06/25 Previous Rx's ?Medication ?Instructions ?Recorded ondansetron 4 mg disintegrating 4 mg PO Q8H PRN nausea and 04/23/20 tablet vomiting #30 tabs triamcinolone acetonide 0.1 % 1 applic topical BID #15 grams 01/05/23 topical ointment vitamin with calcium 1 tab PO DAILY #90 tabs 02/21/24 no.72-iron 27 mg-folic acid 1 mg tablet albuterol sulfate 90 mcg/actuation 2 puff inhalation Q6H PRN 02/23/24 aerosol inhaler (ProAir HFA) shortness of breath #18 grams propranolol 10 mg tablet 10 mg PO BID #60 tabs 04/22/24 divalproex 125 mg tablet,delayed See Rx Instructions .Route 11/12/24 release .COMPLEX #180 tabs ibuprofen 600 mg tablet 600 mg PO Q6H PRN inflammation #60 11/12/24 tabs omeprazole 20 mg capsule,delayed See Rx Instructions .Route 11/12/24 release .COMPLEX #60 caps hydromorphone 2 mg tablet 2 mg PO Q6H PRN pain #112 tabs 11/18/24 methylphenidate HCl 20 mg tablet 20 mg PO BID #56 tabs 11/18/24 methylphenidate HCl 20 mg tablet 20 mg PO BID #56 tabs 11/18/24 baclofen 10 mg tablet 10 mg PO QID PRN PRN muscle spasms 12/23/24 #100 tabs hydromorphone 2 mg tablet 2 mg PO Q6H PRN pain, severe #112 12/23/24 tabs hydromorphone 2 mg tablet 2 mg PO Q6H chronic pain #112 tabs 12/23/24 methylphenidate HCl 20 mg tablet 20 mg PO BID #56 tabs 12/23/24 dicyclomine 10 mg capsule 10 mg PO TID PRN #20 caps 01/06/25 Allergies Allergy/AdvReac Type Severity Reaction Status Date / Time venom-honey bee Allergy Severe HIVES Verified 01/06/25 14:07 aripiprazole (From [facility]) AdvReac Intermediate Nausea Verified 01/06/25 14:07 acetaminophen AdvReac Unknown VOMITING; Verified 01/06/25 14:07 WEIGHT LOSS meloxicam AdvReac Unknown NAUSEA/VOMI Verified 01/06/25 14:07 TING hydrocodone AdvReac NAUSEA/VOMI Verified 01/06/25 14:07 TING oxycodone AdvReac VOMITING Verified 01/06/25 14:07 General Stated Complaint: Abd Prob JONN: 3 Course Vital Signs Vital signs: Vital Signs Temperature 36.6 C 01/06/25 14:01 Pulse 85 01/06/25 14:01 Respiratory Rate 16 01/06/25 14:01 Blood Pressure 154/86 H 01/06/25 14:01 Pulse Oximetry 99 01/06/25 14:01 Temperature 36.6 C 01/06/25 14:01 Temperature Source Oral 01/06/25 14:01 Pulse 85 01/06/25 14:01 Respiratory Rate 16 01/06/25 14:01 Blood Pressure 154/86 H 01/06/25 14:01 Blood Pressure Position Sitting 01/06/25 14:01 Pulse Oximetry 99 01/06/25 14:01 Oxygen Delivery Method Room Air 01/06/25 14:01 Oxygen Flow Rate 0 01/06/25 14:01 Pain Level 6 01/06/25 14:01 Lab/Test Results Lab/Test Results: POC Urine Test Start: 01/06/25 14:08 Freq: Status: Complete Protocol: Document 01/06/25 14:08 CARA (Rec: 01/06/25 14:08 CARA [id number]) Test(Urine)-POC POC- Test(urine) Negative POC- Test(urine) Negative Medical Decision Making Quality:SDOH Health Related Social Needs: No Data to Display PFSH All Active Problems (Updated 01/06/25 @ 17:25 by Clarice Cowan MD) Abdominal pain of unknown cause (Acute) Influenza A (Acute) Chronic shoulder pain (Acute) Chronic neck pain (Acute) High risk medication use (Acute) Depakote Clavicle pain (Acute) Swelling vs pain, but tender and presuming inflamed Rib pain on left side (Acute) general ache Rib cage dysfunction (Acute) Patulous eustachian tube of right ear (Acute) Lymph nodes enlarged (Acute) per US, 04/22/24 (Ba Swallow NEG) .. considering CT Chronic sore throat (Acute) soreness, with bump, NOT like strep Knee pain, right (Acute) Meniscal injury per pt recollection .. MRI requested Right hip pain (Acute) Hx arthroscopy; Hx congenital path per pt report; chronic pain and instability Foot pain, right (Acute) Wrist pain, right (Acute) Bilateral hand swelling (Acute) Right shoulder pain (Acute) Stiffness, crunching .. improves with movement during the day Swelling (Acute) Intermittent, with unclear etiology (different areas) Dermatitis (Acute) Family history of acute gouty arthritis (Acute) Fa with early onset Complex medical condition (Acute) Near syncope (Acute) Hypoalbuminemia (Acute) per Hx .. [ ] re-checking .. possible edema 2' low albumin? Hot flashes (Acute) Acute on chronic (episodic) .. usually white as a ghost per observers.. Abnormal flushing and sweating (Acute) Social anxiety disorder (Acute) Malabsorption (Acute) PPI use.. Hx low-weight Difficulty demonstrating health literacy (Chronic) Pt is very honest on health care and process understanding.. [ ] CC for support PRN Costochondral chest pain (Acute) Affecting ADL, with activity .. once starts, stays. 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 Hydromorphone is the only opiate she can take that has not caused severe nausea and vomiting. 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 [facility] [place] Fernandez Coelho [place] History of total left hip arthroplasty (~05/24/07) [facility] [place] Fernandez Coelho [place] History of section Jun 2022 - [place] [facility] [place] Status post arthroscopy of hip S/P carpal tunnel release Family History Father Stroke Hypertension Diabetes Self COPD (chronic obstructive pulmonary disease) Per Dr. Patterson Paternal Grandfather Heart disease congenital heart defect Social History Smoking/Tobacco Use Status: Current every day Tobacco Type: e-cigarettes Smoking risk assessment performed?: Yes Alcohol Intake: never Drug use: Occasionally Substance use type: marijuana Household members: other Details: 2 Housing: house Do you feel safe at home: Yes Do you feel safe in your relationship?: Yes Additional Social history: bipolar disorder History History 1 Para 1 Hx # Term Pregnancies 0 Multiple births 0 Hx # Pregnancies 0 Ectopic pregnancies 0 AB induced 0 Hx Number of Living Children 0 AB spontaneous 0 Past Pregnancies Del. Date GA/Weeks # Preg Succ Route Wgt Sex Labor Lgth Anesthesia Location Prov Complic 06/21/22 36 No Yes [place] [facility] [place]
[2025-01-06 14:38] VITALS: O2SAT 97
[2025-01-06 14:46] LABS: Abs Immature Grans 0.02 10^3/uL (0.0-0.06); Absolute Basophil Count 0.03 10^3/uL (0.0-0.2); Absolute Eosinophil Count 0.27 10^3/uL (0.0-0.7); Absolute Lymphocyte Count 3.01 10^3/uL (1.2-3.4); Absolute Monocyte Count 0.95 10^3/uL (0.1-0.8); Absolute Neutrophil Count 4.47 10^3/uL (1.2-6.7); Basophils % 0.3 %; Eosinophils % 3.1 %; HCT 41.9 % (36.0-46.0); HGB 14.7 g/dL (11.2-15.7); Immature Grans % 0.2 %; Lymphocytes % 34.4 %; MCHC 35.1 % (32.0-36.0); MCV 91 fL (80-95); MPV 9.9 fL (8.0-11.0); Monocytes % 10.9 %; Neutrophils % 51.1 %; Platelet Count 414 10^3/uL (130-400); RDW 12.7 % (11.7-14.6); RDW-SD 42.1 fL; WBC 8.75 10^3/uL (4.4-10.8)
[2025-01-06 14:48] LABS: Bilirubin Negative (Negative); Blood Trace-intact (Negative); Clarity Clear (Clear); Glucose Negative (Negative); Ketones Negative (Negative); Leukocyte Esterase Negative (Negative); Nitrite Negative (Negative); Specific Gravity 1.015 (1.005-1.025); Urobilinogen 0.2 mg/dL (Up to 0.2); pH 6.5 (5-8)
[2025-01-06 14:53] LABS: Bacteria Rare HPF (Negative); C & S Indicated? No; Casts Negative LPF (Negative); Crystals Negative HPF (Negative); Epithelial Cells Rare HPF (Negative); Mucus Negative (Negative); Other Cells Negative (Negative); RBC 0-2 HPF (0-2); WBC Negative HPF (0-5)
[2025-01-06 15:15] LABS: ALT 29 U/L (14-59); AST 14 U/L (15-37); Albumin 3.6 g/dL (3.4-5.0); Alkaline Phosphatase 87 U/L (46-116); Anion Gap 6.5 mmol/L (3-11); BUN 16 mg/dL (7-18); Bilirubin, Total 0.47 mg/dL (0.2-1.0); CO2 31.5 mmol/L (21.0-32.0); CREATININE 0.8 mg/dL (0.55-1.02); Calcium 9.6 mg/dL (8.5-10.1); Chloride 105 mmol/L (98-107); Estimated GFR 97.26 (mL/min/1.73m2); Glucose 107 mg/dL (74-106); Lipase 43 U/L (<78); Potassium 3.4 mmol/L (3.5-5.1); Sodium 143 mmol/L (136-145); Total Protein 7.3 g/dL (6.4-8.2)
[2025-01-06] MEDS: Omnipaque 350 MG/ML 100 ML BTL IJ (15:27)
[2025-01-06] MEDS: Normal Saline - Diluent 50 ML VIAL IJ (15:27)
--- NOTE | 2025-01-06 16:00 | DI.US_ITS ---
Exam(s) US PELVIS TRANSVAGINAL EXAM: US PELVIS TRANSVAGINAL CLINICAL HISTORY: b/l adnexal masses, abd pain. TECHNIQUE: Transabdominal and transvaginal pelvic ultrasound was performed using standard protocol. COMPARISON: CT CT ABDOMEN PELVIS W from 01/06/2025 FINDINGS: UTERUS: Position: Anteverted. Size: 5.9 long by 3.1 AP by 4.0 transverse cm Endometrium: 0.3 cm. Normal for patient's menstrual status. Myometrium: Unremarkable. Cervix: Unremarkable. OVARIES: Right: 3.1 x 2.0 x 1.3 cm Cyst or mass: No suspicious cystic or solid masses. Small follicular cysts are present. Left: 3.0 x 1.6 x 3.3 cm Cyst or mass: No suspicious cystic or solid masses. There are small follicular cysts present. The l argest measures 1.6 x 1.0 cm. DOPPLER: Color: Symmetric and uniform flow to both ovaries. CUL-DE-SAC: Free fluid: There is a small to moderate amount of free fluid in the cul-de-sac and adjacent to the l eft ovary. Other: No cystic lesions are seen in the adnexa to suggest distended fallopian tubes or cystic masses . IMPRESSION: 1. Normal-appearing uterus with endometrial stripe within normal limits. 2. Unremarkable bilateral ovaries. 3. Xrgh-do-fniwctmc amount of free fluid in the cul-de-sac and adjacent to the left ovary. 4. No findings suggest adnexal cystic masses or distended fallopian tubes. The findings on the CT ma y simply represent distended small bowel loops in the pelvis. A follow-up outpatient MRI of the pelv is without and with contrast should be considered for further evaluation. DATA REPOSITORY:
[2025-01-06 17:40] VITALS: BP 124/76; PULSE 61; RESP 16; O2SAT 98
== END 2025-01-06 17:43 | disposition home or self-care (01) ==
PROVIDERS: Emergency Provider Emergency Medicine; PCP Family Medicine
DX: R10.9 Unspecified abdominal pain (principal); R11.10 Vomiting, unspecified; F17.290 Nicotine dependence, other tobacco product, uncomplicated
CPT/HCPCS: 80053; 81025; 83690; 99285; 74177; 76830; 76856; 81003; 81015; 83735; 85025; 99284; J3490

== ENCOUNTER 2025-05-01 01:15 | Outpatient (CLI) | payer MEDICARE, MEDICAID, SELFPAY ==
[2025-05-01 11:26] LABS: Abs Immature Grans 0.01 10^3/uL (0.0-0.06); Absolute Basophil Count 0.06 10^3/uL (0.0-0.2); Absolute Eosinophil Count 0.17 10^3/uL (0.0-0.7); Absolute Monocyte Count 0.42 10^3/uL (0.1-0.8); Absolute Neutrophil Count 4.68 10^3/uL (1.2-6.7); Basophils % 0.8 %; Eosinophils % 2.3 %; HCT 39.6 % (36.0-46.0); HGB 13.6 g/dL (11.2-15.7); Immature Grans % 0.1 %; Lymphocytes % 28.2 %; MCH 31.9 pg (27.0-33.0); MCHC 34.3 % (32.0-36.0); MCV 93 fL (80-95); MPV 9.8 fL (8.0-11.0); Monocytes % 5.6 %; Platelet Count 355 10^3/uL (130-400); RBC 4.27 10^6/uL (3.93-5.22); RDW 12.8 % (11.7-14.6); RDW-SD 43.8 fL; WBC 7.44 10^3/uL (4.4-10.8)
[2025-05-01 12:31] LABS: C-Reactive Protein < 0.50 mg/dL (<or=0.5)
[2025-05-02 10:02] LABS: Cyclic Citrullinated Peptide <2.5 U/mL (<5.0)
[2025-05-02 12:04] LABS: Lyme Ab w Rflx to Lyme Confirm Negative (Negative)
[2025-05-02 15:09] LABS: ANA Interpretation Negative (Negative)
[2025-05-04 15:04] LABS: Anaplasma phagocytophilum Negative (Negative); B. miyamotoi PCR Negative (Negative); Babesia divergens/MO-1 Negative (Negative); Babesia duncani Negative (Negative); Babesia microti Negative (Negative); Ehrlichia chaffeensis Negative (Negative); Ehrlichia ewingii/canis Negative (Negative); Ehrlichia muris eauclairensis Negative (Negative)
== END 2025-05-01 01:16 | disposition home or self-care (01) ==
LOC: LBO 01:16
PROVIDERS: PCP Family Medicine; Visit Provider Family Medicine
DX: G89.4 Chronic pain syndrome (principal); K04.7 Periapical abscess without sinus
CPT/HCPCS: 36415; 86200; 87798; 85025; 86038; 86140; 86618

== ENCOUNTER 2025-05-08 15:55 | Emergency (ER) | payer MEDICARE, MEDICAID, SELFPAY ==
[2025-05-08 15:58] VITALS: BP 126/83; PULSE 87; RESP 16; TEMP 36.6
== END 2025-05-08 18:05 | disposition left against medical advice (07) ==
PROVIDERS: Emergency Provider Emergency Medicine; PCP Family Medicine
DX: Z53.29 Procedure and treatment not carried out because of patient's decision for other reasons (principal)
CPT/HCPCS: 99283

== ENCOUNTER 2025-05-09 15:47 | Emergency (ER) | payer MEDICARE, MEDICAID, SELFPAY ==
--- NOTE | 2025-05-09 15:45 | RT.EKG_ITS ---
APPROVED REPORT Exam: Resting ECG Reason for Exam: chest pain Patient Location: E HR:95 bpm ECG Measurements Heart Rate 95 AXIS TX 198 P 71 QRSd 103 QRS -28 QT 351 T 50 QTc 442 Conclusion Sinus rhythm 95 normal axis no stemi
[2025-05-09 15:55] VITALS: BP 162/85; PULSE 102; RESP 18; TEMP 36.6; O2SAT 100
[2025-05-09] MEDS: Methocarbamol 500 MG TAB 1000 MG PO (16:53)
--- NOTE | 2025-05-09 17:00 | DI.RAD_ITS ---
Exam(s) XR CHEST 2V PA LATERAL EXAM: XR CHEST 2V PA LATERAL CLINICAL HISTORY: right rib pain TECHNIQUE: 2D digital imaging was performed. Two views. COMPARISON: CR,XR XR CHEST 2V PA LATERAL from 12/29/2024 FINDINGS: HEART: Normal size. Aorta: Not dilated. PULMONARY VASCULATURE: Normal. MEDIASTINUM: Unremarkable. LUNGS: Clear. PLEURAL SPACE: No pleural effusion or pneumothorax. BONE:Unremarkable for age. No rib fractures are visible. SOFT TISSUES: Unremarkable. IMPRESSION: No acute abnormality. DATA REPOSITORY: RADIATION DOSE DELIVERED:
[2025-05-09] MEDS: Lidocaine 5% Patch 1 PATCH TP (17:12)
--- NOTE | 2025-05-09 20:11 | ED.GENADUL_ITS ---
Discharge Plan Disposition Patient Disposition: Home Discharge Details Clinical Impression: Right-sided chest wall pain, Chronic pain syndrome Primary Care Provider: David Toure ED Provider: Quintin Wells Home Meds and New Rx's Prescriptions: New lidocaine [Lidoderm] 5 % adhesive patch,medicated 1 patch topical DAILY Qty: 15 0RF Rx Instructions: leave on most painful area for up to 12 hrs No Action hydromorphone 2 mg tablet 2 mg PO Q6H MDD 8mg PRN (Reason: pain) Qty: 112 0RF methylphenidate HCl 20 mg tablet 20 mg PO BID MDD 40mg Qty: 56 0RF Rx Instructions: 28 Day Rx methylphenidate HCl 20 mg tablet 20 mg PO BID MDD 40mg Qty: 56 0RF Rx Instructions: 28 Day Rx propranolol 10 mg tablet 10 mg PO .qd Qty: 60 3RF baclofen 10 mg tablet 10 mg PO QID PRN MDD 40mg PRN (Reason: muscle spasms) Qty: 360 1RF Rx Instructions: Refilling @ QID, PRN (so, not scheduled) omeprazole 20 mg capsule,delayed release(DR/EC) 20 mg PO BID Qty: 180 3RF ondansetron 4 mg tablet,disintegrating 4 mg PO Q8H PRN (Reason: nausea and vomiting) Qty: 30 4RF albuterol sulfate [ProAir HFA] 90 mcg/actuation HFA aerosol inhaler 2 puff IH Q6H PRN (Reason: shortness of breath) Qty: 18 4RF epinephrine [EpiPen] 0.3 MG/0.3 ML auto-injector 1 pen IM ONCE Patient Comments: divalproex 125 mg tablet,delayed release (DR/EC) See Rx Instructions .ROUTE .COMPLEX Qty: 180 0RF Dose Instruction: TAKE 1 TABLET BY MOUTH TWO TIMES A DAY Rx Instructions: TAKE 1 TABLET BY MOUTH TWO TIMES A DAY PNV,calcium [id number] acid 27 mg iron- 1 mg tablet 1 tab PO DAILY Qty: 90 3RF Rx Instructions: give with food (meal/snack) ibuprofen 600 mg tablet 600 mg PO Q6H PRN (Reason: inflammation) Qty: 60 2RF Rx Instructions: Use for joint pain/inflammation, WITH FOOD Discharge Instructions Additional Instructions: Your x-ray does not reveal any pneumonia or rib abnormality Please continue your chronic pain medications at home and follow-up with your PCP for any further management I have prescribed a lidocaine patch to apply to the area to help with your pain. Any additional medication needs to come from your primary doctor. Discharge Data Discharge Date/Time-TO BE ENTERED AT DEPARTURE: 05/09/25 16:40 HPI General Date/Time Provider Initiated Documentation: 05/09/25 16:39 . Limitations to Documentation: no limitations . Information obtained by: patient . HPI Narrative: 79-year-old female with past medical history of chronic pain syndrome and presents for evaluation of right rib pain. She reports that she has had this before but never as severe. Pain is localized to the right anterior and lateral ribs, worse with touching and moving the area. She denies any difficulty breathing. She denies any radiation of the pain. Denies any trauma. Related Data Home Medications ?Medication ?Instructions ?Recorded ?Confirmed epinephrine 0.3 mg/0.3 mL 1 pen IM ONCE 01/20/1305/09 injection, auto-injector (EpiPen) ondansetron 4 mg disintegrating 4 mg PO Q8H PRN nausea and 04/23/20 05/09/25 tablet vomiting #30 tabs albuterol sulfate 90 mcg/actuation 2 puff inhalation Q 6H PRN 02/23/24 05/09/25 aerosol inhaler (ProAir HFA) shortness of breath #18 g romina divalproex 125 mg tablet,delayed See Rx Instructions . Route 02/12/25 05/09/25 release .COMPLEX #180 tabs vitamin with calcium 1 tab PO DAILY #90 tabs 03/03/25 05/09/25 no.72-iron 27 mg-folic acid 1 mg tablet ibuprofen 600 mg tablet 600 mg PO Q6H PRN inflammati on #60 03/10/25 05/09/25 tabs baclofen 10 mg tablet 10 mg PO QID PRN PRN muscle spasms 04/08/25 05/09/25 #360 tabs omeprazole 20 mg capsule,delayed 20 mg PO BID #180 cap s 04/08/25 05/09/25 release propranolol 10 mg tablet 10 mg PO .qd #60 tabs 05/09/25 hydromorphone 2 mg tablet 2 mg PO Q6H PRN pain #112 ta bs 04/25/25 05/09/25 methylphenidate HCl 20 mg tablet 20 mg PO BID #56 tabs 04/25/25 05/09/25 methylphenidate HCl 20 mg tablet 20 mg PO BID #56 tabs 04/25/25 05/09/25 lidocaine 5 % topical patch 1 patch topical DAILY #15 ea 05/09/25 (Lidoderm) Previous Rx's ?Medication ?Instructions ?Recorded ondansetron 4 mg disintegrating 4 mg PO Q8H PRN nausea and 04/23/20 tablet vomiting #30 tabs albuterol sulfate 90 mcg/actuation 2 puff inhalation Q 6H PRN 02/23/24 aerosol inhaler (ProAir HFA) shortness of breath #18 g romina divalproex 125 mg tablet,delayed See Rx Instructions . Route 02/12/25 release .COMPLEX #180 tabs vitamin with calcium 1 tab PO DAILY #90 tabs 03/03/25 no.72-iron 27 mg-folic acid 1 mg tablet ibuprofen 600 mg tablet 600 mg PO Q6H PRN inflammati on #60 03/10/25 tabs baclofen 10 mg tablet 10 mg PO QID PRN PRN muscle spasms 04/08/25 #360 tabs omeprazole 20 mg capsule,delayed 20 mg PO BID #180 cap s 04/08/25 release propranolol 10 mg tablet 10 mg PO .qd #60 tabs hydromorphone 2 mg tablet 2 mg PO Q6H PRN pain #112 ta bs 04/25/25 methylphenidate HCl 20 mg tablet 20 mg PO BID #56 tabs 04/25/25 methylphenidate HCl 20 mg tablet 20 mg PO BID #56 tabs 04/25/25 lidocaine 5 % topical patch 1 patch topical DAILY #15 ea 05/09/25 (Lidoderm) Allergies Allergy/AdvReac Type Severity Reaction Status Date / Time venom-honey bee Allergy Severe HIVES Verified 05/09/25 16:00 aripiprazole (From Abilorne) AdvReac Intermediate Nausea Verified 05/09/25 16:00 acetaminophen AdvReac Unknown VOMITING; Verified 05/09/25 16:00 WEIGHT LOSS meloxicam AdvReac Unknown NAUSEA/VOMI Verified 05/09/25 16:00 TING hydrocodone AdvReac NAUSEA/VOMI Verified 05/09/25 16:00 TING oxycodone AdvReac VOMITING Verified 05/09/25 16:00 General Stated Complaint: Chest/Rib JONN: 3 Exam Narrative Exam Narrative: Review of Systems: All systems reviewed & are unremarkable except as noted in HPI and below Well-developed, no acute distress NCAT RRR Unlabored respiratory effort clear bilaterally, Tenderness along bra line under the right breast and lateral rib cage, no deformity or crepitus Multiple skin picking lesions Course Vital Signs Vital signs: Vital Signs Temperature 36.6 C 05/09/25 15:55 Pulse 102 H 05/09/25 15:55 Respiratory Rate 18 05/09/25 15:55 Blood Pressure 162/85 H 05/09/25 15:55 Pulse Oximetry 100 05/09/25 15:55 Temperature 36.6 C 05/09/25 15:55 Temperature Source Oral 05/09/25 15:55 Pulse 102 H 05/09/25 15:55 Respiratory Rate 18 05/09/25 15:55 Respiratory Effort Normal, Non-Labored 05/09/25 16:27 Respiratory Depth Normal 05/09/25 16:27 Respiratory Pattern Normal 05/09/25 16:27 Blood Pressure 162/85 H 05/09/25 15:55 Pulse Oximetry 100 05/09/25 15:55 Pain Level 6 05/09/25 15:55 Medical Decision Making Emergent evaluation of right-sided chest wall pain. No trauma. I do not suspect an acute cardiac etiology of this chest pain. She did receive an EKG that is unremarkable. She has clear breath sounds and no history of trauma. Her history is more concerning for chronic pain etiologies and she is on high doses of hydromorphone daily. Examination is reassuring and fairly benign. Chest x-ray was ordered. Radiographs reviewed, no pneumonia or rib fracture appreciated. The patient was provided with Robaxin and the Lidoderm patch and encouraged to follow-up with her PCP for any ongoing pain medication needs. PFSH All Active Problems (Updated 05/09/25 @ 17:06 by Quintin Wells MD) Right-sided chest wall pain (Acute) Free fluid in pelvis (Acute) Abscessed tooth (Acute) Chronic shoulder pain (Acute) Chronic neck pain (Acute) High risk medication use (Acute) Depakote Clavicle pain (Acute) Swelling vs pain, but tender and presuming inflamed Rib pain on left side (Acute) general ache Rib cage dysfunction (Acute) Patulous eustachian tube of right ear (Acute) Lymph nodes enlarged (Acute) per US, 04/22/24 ([facility] Swallow NEG) .. considering CT Chronic sore throat (Acute) soreness, with bump, NOT like strep Knee pain, right (Acute) Meniscal injury per pt recollection .. MRI requested Right hip pain (Acute) Hx arthroscopy; Hx congenital path per pt report; chronic pain and instability Foot pain, right (Acute) Wrist pain, right (Acute) Bilateral hand swelling (Acute) Right shoulder pain (Acute) Stiffness, crunching .. improves with movement during the day Swelling (Acute) Intermittent, with unclear etiology (different areas) Dermatitis (Acute) Family history of acute gouty arthritis (Acute) Fa with early onset Complex medical condition (Acute) Near syncope (Acute) Hypoalbuminemia (Acute) per Hx .. [ ] re-checking .. possible edema 2' low albumin? Hot flashes (Acute) Acute on chronic (episodic) .. usually white as a ghost per observers.. Abnormal flushing and sweating (Acute) Social anxiety disorder (Acute) Malabsorption (Acute) PPI use.. Hx low-weight Difficulty demonstrating health literacy (Chronic) Pt is very honest on health care and process understanding.. [ ] CC for support PRN Costochondral chest pain (Acute) Affecting ADL, with activity .. once starts, stays. 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 Hydromorphone is the only opiate she can take that has not caused severe nausea and vomiting. Attention deficit hyperactivity disorder (ADHD), combined type (Chronic 12/27/16) Idiopathic scoliosis (Chronic) Peripheral neuropathy (Acute) Lumbar spondylosis (Acute) Sinus tachycardia (Acute) takes propranolol, 10 mg twice daily Medical History (Updated 05/09/25 @ 17:06 by Quintin Wells MD) Mild oppositional defiant disorder with angry or irritable mood Legg-Perthes disease (~04/24/07) Left hip osteoarthritis - Dr Fernandez Coelho, [facility] History of pre-eclampsia Delivered @ [facility], under urgent recommendations Anemia Post delivery, [ ] re-check (Dec 2022) Smoker 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 [facility] - Fernandez Coelho MD History of total left hip arthroplasty (~05/24/07) [facility] - Fernandez Coelho MD History of section Jun 2022 - emergent at [facility] Status post arthroscopy of hip S/P carpal tunnel release Family History Father Stroke Hypertension Diabetes Self COPD (chronic obstructive pulmonary disease) Per Dr. Patterson Paternal Grandfather Heart disease congenital heart defect Social History Smoking/Tobacco Use Status: Current every day Tobacco Type: e-cigarettes Smoking risk assessment performed?: Yes Alcohol Intake: never Drug use: Occasionally Substance use type: marijuana Household members: other Details: 2 Housing: house Do you feel safe at home: Yes Do you feel safe in your relationship?: Yes Additional Social history: bipolar disorder History History 1 Para 1 Hx # Term Pregnancies 0 Multiple births 0 Hx # Pregnancies 0 Ectopic pregnancies 0 AB induced 0 Hx Number of Living Children 0 AB spontaneous 0 Past Pregnancies Del. Date GA/Weeks # Preg Succ Route Wgt Sex Labor Lgth Anesth esia Location [facility] 06/21/22 38 No Yes Female [facility]
--- NOTE | 2025-05-13 08:58 | NUR.NOTE ---
Access chart to get the PCP to send prior authorization for lidocaine 5% patches for review. Nursing Note:
== END 2025-05-09 16:40 | disposition home or self-care (01) ==
PROVIDERS: Emergency Provider Emergency Medicine; PCP Family Medicine
DX: R07.89 Other chest pain (principal); G89.4 Chronic pain syndrome; F17.290 Nicotine dependence, other tobacco product, uncomplicated
CPT/HCPCS: 93005; 99284; 71046; 93010